=== PATIENT | male | born 1970 | race Caucasian/White ===

== ENCOUNTER 2017-10-09 10:26 | Emergency (ER) | payer OTHER, SELFPAY ==
[2017-10-09 10:58] LABS: #Basophils 0.1 thou/uL (0.0-0.2); #Eosinphils 0.2 thou/uL (0.0-0.7); #Lymphocytes 1.7 thou/uL (1.20-3.40); #Monocytes 0.9 thou/uL (0.11-0.59); #Neutrophils 8.8 thou/uL (1.40-6.50); %Basophils 0.7 % (0.0-1.0); %Eosinophils 1.4 % (0.0-10.0); %Lymphocytes 14.5 % (21.0-51.0); %Monocytes 7.9 % (0.0-10.0); %Neutrophils 75.6 % (42.0-75.0); Hemoglobin 17.1 g/dL (14.0-18.0); Mean Corpuscular HGB CONC 36.1 g/dL (32.0-36.0); Mean Corpuscular Hemoglobin 32.8 pg (27.0-31.0); Mean Corpuscular Volume 90.9 fL (78.0-98.0); Mean Platelet Volume 6.2 fL (7.4-10.4); Platelet Count 333 thou/uL (130-400); RBC Distribution Width 12.5 % (11.5-14.5); Red Blood Cell (RBC) Count 5.19 mill/uL (4.70-6.10); White Blood Cell (WBC) Count 11.7 thou/uL (4.8-10.8)
[2017-10-09 11:19] LABS: ALT (SGPT) 26 U/L (8-55); AST (SGOT) 22 U/L (5-34); Albumin 4.3 g/dL (3.5-5.0); Alkaline Phosphatase 64 U/L (40-150); Anion Gap 15 mmol/L (10-20); BUN (Urea Nitrogen) 15 mg/dL (8.9-20.6); Bilirubin, Total 0.2 mg/dL (0.2-1.2); Calc. Creatinine Clearance 0 mL/min (70-130); Calcium 9.9 mg/dL (7.8-10.44); Carbon Dioxide 22 mmol/L (22-29); Chloride 104 mmol/L (98-107); Estimated GFR-MDRD Greater than 90; Globulin 3.9 g/dL (2.4-3.5); Glucose 131 mg/dL (70-105); Potassium 4.1 mmol/L (3.5-5.1); Protein, Total 8.2 g/dL (6.0-8.3); Sodium 137 mmol/L (136-145)
--- NOTE | 2017-10-09 11:47 | CT ---
CT BRAIN: Date: 10-09-17 Provided Clinical History: Seizure. FINDINGS: Comparison 12-12-16. The ventricular system appears normal in size and morphology. There is no evidence for intracranial h emorrhage or mass effect. The extracranial soft tissues and osseous structures demonstrate no acute a bnormality. IMPRESSION: No evidence for intracranial hemorrhage or mass effect. POS: [facility]
--- NOTE | 2017-10-09 11:52 | RAD ---
UPRIGHT PORTABLE CHEST ONE VIEW: History: 46-year-old male with history of cough and seizures. Comparison: 12-12-16 FINDINGS: Heart size is normal. The lungs are clear. No pneumonia, edema, or pleural effusion. IMPRESSION: No acute intrathoracic disease, stable from prior study. POS: [facility]
[2017-10-09] MEDS ORDERED: diphenhydrAMINE 50 MG/ML VIAL ONE (12:28)
[2017-10-09] MEDS ORDERED: Ketorolac Tromethamine 30 MG/ML VIAL ONE (12:28)
[2017-10-09] MEDS ORDERED: Metoclopramide HCl 10 MG/2 ML VIAL ONE (12:28)
[2017-10-09] MEDS ORDERED: levETIRAcetam 500 MG TAB PO SCH (12:30)
[2017-10-09] MEDS ORDERED: Ondansetron HCl/PF 4 MG/2 ML Vial ONE (12:43)
== END 2017-10-09 14:43 | disposition home or self-care (01) ==
LOC: ERS 10:26
DX: G40.909 Epilepsy, unspecified, not intractable, without status epilepticus (principal); E03.9 Hypothyroidism, unspecified; I10 Essential (primary) hypertension; F17.210 Nicotine dependence, cigarettes, uncomplicated; Z79.899 Other long term (current) drug therapy; Z79.84 Long term (current) use of oral hypoglycemic drugs
CPT/HCPCS: 36415; 70450; 71045; 80053; 84146; 85025; 93005; 96361; 96365; 96366; 96375; 99406; J1200; J1885; J2405; J2765

== ENCOUNTER 2018-04-11 17:48 | Inpatient (IN) | payer SELFPAY ==
[~2018-04-11 17:48] MED LIST: ISOVUE-370 76%-LOCM 1 ML ONE
[2018-04-11] MEDS ORDERED: Propofol 1,000 MG/100 ML VIAL IV ONE (17:55)
[2018-04-11] MEDS ORDERED: Piperacillin/Tazobactam 4.5 GM VIAL ONE (18:04)
[2018-04-11] MEDS ORDERED: Acetaminophen 650 MG Suppository ONE (18:07)
[2018-04-11 18:11] LABS: Base Excess-Venous -7.2 mmol/L (0 (+/- 2.5)); Bicarbonate (HCO3v) 21.2 mmol/L (22.0-29.0); CO2 Tension (PvCO2) 51.5 mmHg (41.0-51.0); Calcium, Ionized 1.11 mmol/L (1.12-1.32); Lactate 4.56 mmol/L (0.50-2.20); O2 Tension (PvO2) 60.5 mmHg (35.0-45.0); Potassium 3.9 mmol/L (3.4-4.7); T. Carbon Dioxide 22.7 mmol/L (1.0-85.0); pH (Venous) 7.222 (7.35-7.45); vO2 Saturation-calc 85.2 % (94-98)
[2018-04-11 18:17] LABS: Actual Bicarbonate (HCO3a) 20.7 mEq/L (22-28); Base Excess (BEa) -8.8 mEq/L (-2.0 to +3.0); CO2 Tension 58.2 mmHg (35.0-45.0); Carboxyhemoglobin (COHb) 0.1 gm% (0.0-3.0); Hemoglobin (Hb) 17.7 g/dL (14.0-18.0); Potassium - ABG Lab 3.98 mmol/L (3.70-5.30)
[2018-04-11 18:18] LABS: Analyzer IN Cardio ER; O2 Tension (PaO2) 57.8 mmHg (80.0-100.0); Puncture Site LB; pH, Arterial 7.17 (7.35-7.45)
[2018-04-11] MEDS ORDERED: Succinylcholine Chloride 20 MG/ML 10 ml SYRINGE FS ONE (18:18)
[2018-04-11 19:08] LABS: Bilirubin Negative (Negative); Blood, Urine Large (Negative); Clarity TURBID (Clear); Glucose, Urine (Dipstick) 100 mg/dL (Negative); Leukocyte Negative (Negative); Nitrite Negative (Negative); Protein, Urine (Dipstick) 100 mg/dL (Neg-Trace); Specific Gravity, Urine 1.012 (1.002-1.036); Urobilinogen 0.2 mg/dL (0.2-1.0); pH, Urine 5.5 (5.0-9.0)
[2018-04-11 19:10] LABS: Bacteria/HPF None Seen HPF (None Seen)
[2018-04-11 19:25] LABS: Hyaline Casts/LPF 0-3 HYALINE CAST LPF (0-3 Hyaline)
[2018-04-11 19:28] LABS: WBC/HPF 0-3 HPF (0-3)
[2018-04-11 19:39] LABS: CKMB 36.8 ng/mL (0-6.6)
--- NOTE | 2018-04-11 20:20 | RAD ---
RADIOGRAPH CHEST 1 VIEW: Date: 04/11/18 Time: 4:53 p.m. HISTORY: 47-year-old male with sepsis and diabetic ketoacidosis. Status post intubation. COMPARISON: 04/11/18, 4:27 p.m. FINDINGS: Endotracheal tube distal tip remains 4.5 cm superior to the espinoza. NG tube remains, but is poorly vi sualized. Partial silhouetting of the bilateral hemidiaphragms, left worse than right. This is a sup ine image, which would be insensitive for pneumothorax detection. No ronnie pulmonary edema. No major interval change. IMPRESSION: 1. No interval change since approximately 25 minutes ago. 2. Endotracheal tube and nasogastric tube remain. 3. Densities at the bilateral lung bases which could represent pleural effusions, pulmonary air space densities, or combination of both. TYLER [] POS: [facility]
--- NOTE | 2018-04-11 20:24 | RAD ---
RADIOGRAPH CHEST 1 VIEW: Date: 04/11/18 Time: 5:31 p.m. HISTORY: Status post intubation in 47-year-old male. COMPARISON: 04/11/18, 4:53 p.m. FINDINGS: Again, this is a supine image, which would be insensitive for pneumothorax detection. Endotracheal tu be remains in the mid-upper thoracic trachea, currently approximately 5 cm superior to the espinoza. Ne w transversely oriented band of subsegmental atelectasis at the right mid lung zone. Previously seen mild density at the right lung base partially silhouetting the right hemidiaphragm is no longer visua lized. There continues to be dense opacifications in retrocardiac portion of the left lower lobe. No cardiomegaly. NG tube difficult to visualize because of body habitus. IMPRESSION: 1. Endotracheal tube remains. 2. New subsegmental atelectasis at right mid lung zone. 3. Dense opacification of retrocardiac portion of left lower lobe which could be atelectasis, al though pneumonia would be difficult to exclude. TYLER [] POS: [facility]
--- NOTE | 2018-04-11 20:44 | CT ---
CTA THORAX WITH CONTRAST: 04/11/18 at 7:03 p.m. (Computed Tomographic Angiography, chest(noncoronary) with contrast material, and image postprocessin g) (PE protocol) HISTORY: 47-year-old male with dyspnea. TECHNIQUE: IV injection of iodinated contrast: 70 mL of Isovue 370. Scan acquisition timing attempted to coincide with iodinated contrast bolus reaching maximal density in pulmonary arteries. 3D MIP reconstructions. FINDINGS: Endotracheal tube with distal tip at mid thoracic trachea. NG tube through esophagus, distal tip at g astric cardia. Consolidations involving almost the entire bilateral lower lobes, also involving the p erihilar regions bilaterally. Streak artifact from patient's upper extremities (which were not elevat ed), plus breathing motion artifact, makes it difficult to evaluation the peripheral bilateral pulmon mekhi artery branches. No pulmonary thromboembolism is identified. No pleural effusion or pneumothorax identified. Almost no IV contrast material in the thoracic aorta. No thoracic aortic aneurysm. Heavy atherosclerotic calcification of LAD. IMPRESSION: 1. Bilateral lower lobe consolidations, which could represent severe bilateral lower lobe atelec tasis. Pneumothorax is an alternative possibility. 2. No central pulmonary thromboembolism. 3. Endotracheal tube in satisfactory position. 4. Nasogastric tube distal tip at gastric cardia. 5. Coronary atherosclerosis. ledy[] POS: [facility]
[2018-04-11] MEDS ORDERED: Sodium Chloride 0.9% 1,000 ML IV SCH (20:55)
[2018-04-11] MEDS ORDERED: Ventilator Sedation Protocol 1 EACH FS ONE (21:18)
[2018-04-11] MEDS ORDERED: Dextrose 5% in Water 1,000 ML IV PRN (21:18)
[2018-04-11] MEDS ORDERED: Ventilator Sedation Protocol 1 EACH FS SCH (21:18)
[2018-04-11] MEDS ORDERED: Dextrose 50% Abboject 50 ML SYRINGE SLOW IVP PRN (21:18)
[2018-04-11] MEDS ORDERED: CCU Electrolyte Replacement 1 EACH FS ONE ×2 (21:18)
[2018-04-11] MEDS ORDERED: CCU ELECTROLYTE REPLACEMENT PROTOCOL FS PRN (21:25)
[2018-04-11] MEDS ORDERED: Potassium Phosphate 12 MMOL in Sodium Chloride 0.9% 250 ML 250 ML IV PRN (21:25)
[2018-04-11] MEDS ORDERED: Magnesium 2 GM/NS 0.9% 100 ML 2 GM in Premix Bag 1 BAG IVPB PRN (21:25)
[2018-04-11] MEDS ORDERED: Potassium Chloride 20 MEQ TAB PO PRN (21:25)
[2018-04-11] MEDS ORDERED: Potassium Phosphate 15 MMOL in Sodium Chloride 0.9% 250 ML 250 ML IV PRN (21:25)
[2018-04-11] MEDS ORDERED: Magnesium Oxide 400 MG TAB PO PRN ×2 (21:25)
[2018-04-11] MEDS ORDERED: Potassium Phosphate 9 MMOL in Sodium Chloride 0.9% 100 ML IVPB PRN (21:25)
[2018-04-11] MEDS ORDERED: Potassium Chloride 40 MEQ in Premix Bag 1 BAG IVPB PRN (21:25)
[2018-04-11] MEDS ORDERED: Potassium Chloride 40 MEQ in Sodium Chloride 0.9% 250 ML 250 ML IVPB PRN (21:25)
[2018-04-11] MEDS ORDERED: Fentanyl BOLUS 250 ML IVPB PRN (21:26)
[2018-04-11] MEDS ORDERED: DISCONTINUE PREVIOUS NARCOTIC PAIN MEDICATIONS AND BENZODIAZEPINES FS SCH (21:26)
[2018-04-11] MEDS ORDERED: Morphine 2 MG/ML SYRINGE SLOW IVP PRN (21:26)
[2018-04-11] MEDS ORDERED: Propofol BOLUS 1,000 MG/100 ML VIAL IV PRN (21:26)
[2018-04-11] MEDS ORDERED: Famotidine/PF 20 mg/2ml Vial SLOW IVP SCH (21:30)
[2018-04-11] MEDS: Sodium Bicarbonate 70 MEQ in Sodium Chloride 0.45% 1,000 ML IV SCH (21:52)
[2018-04-11] MEDS: Vecuronium 10 MG VIAL IVP PRN (22:00)
[2018-04-11] MEDS: Meropenem 2 GM in Sodium Chloride 0.9% 100 ML IVPB SCH (22:03)
[2018-04-11] MEDS: Propofol 1,000 MG/100 ML VIAL IV PRN (22:08)
[2018-04-11] MEDS: fentaNYL Citrate/PF 2,000 MCG in Sodium Chloride 0.9% 60 ML IV SCH (22:11)
[2018-04-11 22:24] LABS: Lactic Acid 4.2 mmol/L (0.5-2.2)
[2018-04-11 22:44] LABS: CKMB 45.1 ng/mL (0-6.6)
[2018-04-11] MEDS ORDERED: Heparin 10,000 UNITS/ 10 ML VIAL SLOW IVP SCH (23:30)
[2018-04-11] MEDS ORDERED: Heparin 25,000 units/D5W 500 ML IVPB SCH (23:30)
[2018-04-11 23:49] LABS: Hemoglobin 13.3 g/dL (14.0-18.0); Platelet Count 332 thou/uL (130-400)
--- NOTE | 2018-04-12 01:51 | CON ---
DATE OF CONSULTATION: 04/11/2018 REASON FOR CONSULTATION: Critical care management following encompassed 45 minutes of critical care time. HISTORY OF PRESENT ILLNESS: The patient is a 47-year-old male who was received and transferred to this ER from [facility], where he presented earlier with apparently a prolonged seizure episode. The patient was apparently combative after the seizure. He was intubated by the ER staff there, but apparently was a difficult intubation that took a long time. The ER staff here tells me he was intubated initially with 6.5 endotracheal tube over there and was switched to a 7.5 endotracheal tube when he arrived here. He has been hypoxic since arrival. PAST MEDICAL HISTORY: 1. Diabetes mellitus. 2. Hypothyroidism. 3. Hypertension. 4. Seizure disorder. 5. Lupus. PAST SURGICAL HISTORY: Not available, but the patient, it appears that he has had a tracheostomy and some type of abdominal surgery in the past. ALLERGIES: PER THE TRANSFER NOTE, HE WAS ALLERGIC TO CODEINE, PENICILLIN, SULFA AND RISPERIDONE, BUT THAT IS NOT CONFIRMED. OUTPATIENT MEDICATIONS: Not known. FAMILY MEDICAL HISTORY: Unknown. SOCIAL HISTORY: Not able to confirm at this time. REVIEW OF SYSTEMS: Cannot be obtained as the patient is currently on mechanical ventilation. PHYSICAL EXAMINATION: VITAL SIGNS: Pulse 137, blood pressure 117/97, O2 saturation 86% on 100% oxygen, temperature 101.8, and tidal CO2 was 40. This patient is a large obese male, who is currently intubated on mechanical ventilation. HEENT: Pupils are 2 mm and nonreactive. Sclerae anicteric. Oropharynx, endotracheal tube in place. NECK: Without palpable adenopathy or JVD. There is a midline surgical scar, which may be an old tracheostomy. CARDIOVASCULAR: S1 and S2 is tachycardic without audible murmur. LUNGS: He has crackles in both bases. No wheezes. ABDOMEN: Soft, obese, nontender. His midline surgical scar is well healed. EXTREMITIES: No clubbing, cyanosis, or edema. He had Coban wrapped around both arms, which I told the nursing staff to remove. LABORATORY DATA: White blood cell count 28.4, hematocrit 55.1, and platelet count 398 with 75% neutrophils, 7% bands. INR is 1.1. PTT 36. PH 7.19, pCO2 of 54, PO2 of 58, on bilevel rate 24, high pressure 30, low pressure 15, FiO2 of 100%. Sodium 141, potassium 4.1, chloride 108, CO2 of 8, BUN 12, creatinine 1.6, glucose 309. The beta hydroxybutyrate level was negative. Ketones were negative in the urine. Lactate level was 21.8. BNP less than 10. CPK 332, troponin 5.35, albumin 4.4. His tox screen was remarkable for opiates, cannabinoids. Alcohol level was negative. CT of the chest shows bilateral lower lobe infiltrates along with small effusions. He has some pulmonary edema present. I do not see any overt pulmonary emboli present. ASSESSMENT: 1. Prolonged seizure. 2. Severe lactic acidosis, which I think is probably secondary to seizure. 3. Aspiration pneumonitis from prolonged difficult intubation. 4. Hyperglycemia, but not in diabetic ketoacidosis. 5. Elevated troponin. 6. Recent seizure. 7. Febrile illness likely secondary to seizure, but possibly from aspiration. RECOMMENDATIONS: 1. I have adjusted the patient's mechanical ventilation settings. He needs to be empirically treated with IV antibiotics, steroids, nebulization treatments. He needs to be hydrated probably with some type of bicarbonate drip given the degree of his acidosis. 2. DVT prophylaxis with Lovenox and SCDs. GI prophylaxis with Pepcid. 3. Sliding scale insulin coverage. Job ID: [id number]
[2018-04-12] MEDS: Vecuronium 10 MG VIAL IVP PRN ×8 (02:14→23:11)
--- NOTE | 2018-04-12 03:55 | HP ---
PRIMARY CARE PHYSICIAN: Malorie Coffey MD CHIEF COMPLAINT: Seizure, intubated at outside hospital. HISTORY OF PRESENT ILLNESS: The patient is intubated and sedated on the vent, unable to give history. All history taken from the ER doctor and the chart. This is a 47-year-old with a known seizure disorder, who presented to the [facility] via EMS after a seizure. Per their notes, the patient had a seizure at home and hit his head in the bathroom. He was confused after the seizure and was not recovering normally, so EMS was called. On arrival, the patient was tachypneic, tachycardic, and saturating in the low 80s on nasal cannula. He was given oxygen and immediately brought to CT to rule out hemorrhage from his fall. This evaluation was limited due to the patient being agitated and not following commands. The patient continued to pull out IVs and flare around, was withdrawing from pain and mumbling. His oxygen saturations remained low and so eventually he was intubated. It was a difficult intubation. He had multiple doses of succinylcholine and then later rocuronium and was given Versed and later propofol. After extensive attempts, the patient was successfully intubated with a small ET tube 6.5. He was not oxygenating well with this, but they were able to keep his sats up in the 80s with it. The patient was eventually transferred to our emergency room, here his ET was traded out. Dr. Leblanc was consulted and came to the ER to evaluate and then manage the vent. I was able to get him eventually his O2 sats to remain low and stabilized around 85. The patient has required further sedation in the emergency room here as he started biting the tube and fighting the vent. PAST MEDICAL HISTORY: 1. Seizure disorder. 2. Diabetes. 3. Hypothyroidism. 4. Hypertension. 5. Possible lupus. PAST SURGICAL HISTORY: 1. Surgery for peritonitis. 2. Trach placed at one time when there was trouble with the intubation. SOCIAL HISTORY: Per the chart, the patient smokes cigarettes. No alcohol or illicit drug use mentioned. FAMILY HISTORY: Unknown. ALLERGIES: PER THE CHART, 1. CODEINE. 2. PENICILLIN. 3. SULFA. 4. ZIPRASIDONE. UNABLE TO BE CONFIRMED AT THIS TIME. REVIEW OF SYSTEMS: Unable to obtain secondary to patient's mental status. PHYSICAL EXAMINATION: VITAL SIGNS: Blood pressure 106/87, pulse 132, respirations 24 on the vent. Temperature spiked to 102.2 in the emergency room, now down to 101.8. O2 saturation currently 88% on the ventilator. GENERAL: This is a well-developed obese white male, who is sedated on the ventilator. HEENT: Pupils are about 2 mm bilaterally and fixed after sedation, they were equal and round. Oropharynx with ET tube in place and OG tube as well. HEART: Regular rate and rhythm. No murmurs, rubs, or gallops. LUNGS: Bilateral coarse breath sounds in the bases, though with decent air movement throughout the rest. ABDOMEN: Obese, soft. No palpable masses. Positive bowel sounds. EXTREMITIES: No clubbing, cyanosis, or edema. SKIN: No rashes or other lesions noted. NEUROLOGIC: The patient is sedated. He, however, was chewing on the vent and fighting the vent just a couple minutes ago and nurses just had to re-dose his sedation. He has been moving all extremities equally. No focal findings. LABORATORY DATA: White blood cell count 28,000 with 55% neutrophils, 7 bands, hemoglobin 17.6, hematocrit 55.1, platelet count 398. Coagulation profile normal. Most recent blood gas showed a pH of 7.17, pCO2 of 58, and PO2 of 57. Complete metabolic panel is notable for a creatinine of 1.57, glucose of 166, creatine kinase was 332. CK-MB was elevated at 36.8. Troponin is elevated at 5.3. Lactic acid was actually originally 21 and then down to 4.56 with repeat check after fluids. Urinalysis had protein and glucose in it, but no significant evidence of infection. Toxicology screen was positive for opiates and cannabinoids. Beta hydroxybutyrate was negative. CT of the brain was poor quality due to movement artifact, but no significant abnormalities noted. CTA of the chest and thorax was notable for no evidence of PE or aneurysm or dissection. The patient did have bilateral significant infiltrates in both lungs. He also had a significant calcification of his LAD. Chest x-ray; I did review the most recent chest x-ray done in the emergency room along with the radiologist's report. This shows ET tube in the mid upper thoracic trachea 5 cm above the espinoza. Some subsegmental atelectasis in the right mid lung. Previously seen mild density in the right lung base, partially silhouetted slowly in the right hemidiaphragm no longer visualized and continued dense opacifications in the retrocardiac position in the left lower lobe. No cardiomegaly. ASSESSMENT: 1. Seizure disorder with prolonged seizure after head trauma with prolonged abnormal postictal state. The patient most likely has significant lactic acidosis from his seizure. This is also possibly the source of his elevated troponin. We will continue to follow the lactic acid and troponins and CPKs in the hospital. 2. Acute hypoxic respiratory failure. He appears to have been hypoxic even before the prolonged difficult intubation. This is possibly due to sequela from his seizure and agitation. However, he may have aspirated at home previously. He also very likely aspirated during his intubation attempts. Dr. Leblanc has been consulted and is managing the vent and starting him on appropriate antibiotics. The patient is being admitted to the ICU. 3. Sepsis. Elevated WBC, fever spike in our ER. Most likely aspirated during seizure or intubation attempts. Starting abx and giving fluids. 4. Hyperglycemia. Glucose was originally 300, but now down to 166. He has no ketones. He does not appear to have any sort of DKA picture going on. The acidosis is most likely just from his post seizure. We will check blood sugars regularly in the ICU and give insulin if needed. 5. Acute renal failure, likely secondary to seizure and acidosis. We will monitor closely with fluid resuscitation and consult Nephrology if this does not correct. 6. Elevated troponin. Troponin was initially 0.1 and then second check it jumped up to 5.3. EKG done in the emergency room did show some ST-segment depressions. He does have severe calcification of his LAD, likely significant coronary artery disease. I will talk to Dr. Ewing and see if we need to do anything further besides trend the troponins at this point. 7. Gastrointestinal prophylaxis. We will put the patient on Pepcid IV. 8. Deep venous thrombosis prophylaxis. We will put the patient on Lovenox. 9. Code status. No family available to discuss code status at this time, so he remains a full code. Job ID: [id number] MTDD
[2018-04-12] MEDS: HumaLOG 300 UNITS/3 ML VIAL SC PRN ×3 (04:33→18:00)
[2018-04-12] MEDS: Sodium Bicarbonate 70 MEQ in Sodium Chloride 0.45% 1,000 ML IV SCH ×2 (05:19→18:00)
[2018-04-12] MEDS: Meropenem 2 GM in Sodium Chloride 0.9% 100 ML IVPB SCH ×3 (05:22→22:05)
[2018-04-12] MEDS: Propofol 1,000 MG/100 ML VIAL IV PRN ×3 (05:32→21:22)
[2018-04-12 06:14] LABS: Lactic Acid 4.7 mmol/L (0.5-2.2)
[2018-04-12 06:16] LABS: ALT (SGPT) 153 U/L (8-55); AST (SGOT) 254 U/L (5-34); Albumin 3.7 g/dL (3.5-5.0); Alkaline Phosphatase 73 U/L (40-150); Anion Gap 20 mmol/L (10-20); BUN (Urea Nitrogen) 16 mg/dL (8.9-20.6); Bilirubin, Total 0.3 mg/dL (0.2-1.2); CK (CPK) 1780 U/L (30-200); Calc. Creatinine Clearance 104 mL/min (70-130); Carbon Dioxide 17 mmol/L (22-29); Chloride 107 mmol/L (98-107); Estimated GFR-MDRD 46; Globulin 3.4 g/dL (2.4-3.5); Glucose 188 mg/dL (70-105); Potassium 4.3 mmol/L (3.5-5.1); Protein, Total 7.1 g/dL (6.0-8.3); Sodium 140 mmol/L (136-145)
[2018-04-12 06:22] LABS: Band 2 % (5-11); Hemoglobin 15.7 g/dL (14.0-18.0); Lymphocytes 5 % (21-51); MDiff Complete? YES; Mean Corpuscular Hemoglobin 31.5 pg (27.0-31.0); Mean Corpuscular Volume 90.1 fL (78.0-98.0); Monocytes 4 % (0-10); Neutrophil 87 % (42-75); Platelet Count 293 thou/uL (130-400); Platelet Morphology Comment Appears Adequate; RBC Distribution Width 12.8 % (11.5-14.5); RBC Morphology Normal; Reactive Lymphocytes 2 % (0-10); Red Blood Cell (RBC) Count 4.99 mill/uL (4.70-6.10); White Blood Cell (WBC) Count 17.8 thou/uL (4.8-10.8)
[2018-04-12] MEDS: Lorazepam 2 MG/ML VIAL SLOW IVP PRN ×7 (08:05→23:05)
--- NOTE | 2018-04-12 08:21 | RAD ---
PORTABLE CHEST: Comparison: 04-11-18 History: Respiratory distress. FINDINGS: Endotracheal and NG tubes are in satisfactory position. Parenchymal changes in the mid right lung fie ld have resolved. There is now development of some atelectasis or developing infiltrate in the left b ase with obscuration of the left hemidiaphragm. IMPRESSION: Developing parenchymal change in the left base consistent with atelectasis, possibly related to mucou s plugging versus infiltrate. Right sided lung changes have resolved. POS: [facility]
[2018-04-12 08:27] LABS: Calcium, Ionized 1.02 mmol/L (1.12-1.30); Hemoglobin (Hb) 15.8 g/dL (14.0-18.0); O2 Tension (PaO2) 224.9 mmHg (80.0-100.0); Potassium - ABG Lab 4.15 mmol/L (3.70-5.30); pH, Arterial 7.38 (7.35-7.45)
[2018-04-12 08:43] LABS: Puncture Site L.R.
[2018-04-12] MEDS ORDERED: Enoxaparin Sodium 40 MG/0.4 ML SYRINGE SC SCH (09:00)
[2018-04-12] MEDS ORDERED: Famotidine/PF 20 mg/2ml Vial SLOW IVP SCH (09:00)
--- NOTE | 2018-04-12 09:30 | PRG ---
DATE OF SERVICE: 04/12/2018 TIME SPENT: 35 minutes of critical time. SUBJECTIVE: The patient remains intubated on mechanical ventilation. He will wake up. He moves his extremities. Does not follow any commands specifically. OBJECTIVE: VITAL SIGNS: On exam, his temperature is 98.9 with no fever overnight, pulse 88, blood pressure 96/72. Intake 2414, output 1365. HEENT: Opens his eyes. NECK: No JVD. LUNGS: Fairly clear anteriorly. CARDIAC: S1, S2. Regular. ABDOMEN: Soft, obese, nontender. EXTREMITIES: No edema. LABORATORY DATA: 1. Sodium 140, potassium 4.3, chloride 107, CO2 of 17, BUN 16, creatinine 1.6, glucose 188, lactate 4.7, AST 254, ALT 153. CPK 1780. PH of 7.37, pCO2 of 33, pO2 of 224, that was on bilevel rate 20, high PEEP 30, low PEEP 15, FiO2 of 90%. White blood cell count 17.1, hematocrit 45, platelet count 293. ASSESSMENT: 1. Status epilepticus, which is resolved. 2. Acute respiratory failure, requiring mechanical ventilation. 3. Aspiration due to prolonged intubation. 4. Hyperglycemia at the time of admission, but not in DKA. 5. Elevated troponin. 6. Lactic acidosis from seizure. PLAN: 1. Continue antibiotics. 2. Adjust mechanical ventilation settings. Push endotracheal tube down 2 cm, because it was high on today's x-ray. 3. Start anticonvulsants. 4. Continue bicarbonate drip for one more day given elevated CPK. Job ID: [id number]
[2018-04-12] MEDS: levETIRAcetam In NaCl (Iso-Os) 1,000 MG in Premix Bag 1 BAG IVPB SCH ×2 (09:52→20:37)
[2018-04-12 10:14] LABS: Hemoglobin 15.1 g/dL (14.0-18.0)
--- NOTE | 2018-04-12 10:19 | CON ---
DATE OF CONSULTATION: REASON FOR CONSULTATION: Elevated troponin. HISTORY OF PRESENT ILLNESS: Mr. Reyes is an unfortunate 47-year-old gentleman, who recently had a seizure. He had a difficult intubation while in outlying facility. He was felt to be hypoxic upon arrival. He is currently intubated, sedated with no current family present. The history is obtained from the chart. He has no previous history of underlying coronary artery disease. PAST MEDICAL HISTORY: Hypertension, diabetes mellitus, hypothyroidism, previous seizure disorder, and lupus. ALLERGIES: CODEINE, PENICILLIN. MEDICATIONS: Unknown. SURGICAL HISTORY: Unknown. REVIEW OF SYSTEMS: Unobtainable. PHYSICAL EXAMINATION: VITAL SIGNS: Blood pressure 96/72, pulse 88, temperature 98.9. GENERAL: He is currently intubated and sedated. He does appear disheveled. NEUROLOGIC: The patient is alert and oriented x3 with no focal neurologic deficits. HEENT: Sclerae without icterus. Mouth has moist mucous membranes with normal pallor. NECK: No JVD. Carotid upstroke brisk. No bruits bilaterally. LUNGS: Clear to auscultation with unlabored respirations. BACK: No scoliosis or kyphosis. CARDIAC: Regular rate and rhythm with normal S1 and S2. No S3 or S4 noted. No significant rubs, murmurs, thrills, or gallops noted throughout the precordium. PMI is not displaced. There is no parasternal heave. ABDOMEN: Soft, nontender, nondistended. No peritoneal signs present. No hepatosplenomegaly. No abnormal striae. EXTREMITIES: 2+ femoral and 2+ dorsalis pedis pulses. No cyanosis, clubbing, or edema. SKIN: No gross abnormalities. LABORATORY DATA: Pertinent labs: White blood cell count 17.8, hemoglobin 15.7. Creatinine 1.62. Lactic acid level 4.7. AST and ALT of 254/153. CK of 1780, CK-MB of 45, peak troponin 9.8. EKG shows a normal sinus rhythm with ST-T wave changes suggesting subendocardial ischemia. IMPRESSION: 1. Elevated troponin. 2. Respiratory failure. 3. Seizure. 4. CV risk factors for coronary artery disease. RECOMMENDATIONS: At this point, we will continue supportive care. I am unsure whether his troponin and CK-MB were due to recent seizure or demand ischemia. He does have a previous history of seizure. Differential diagnosis does include malignant dysrhythmia causing a seizure-like activity. Recommend echo with doppler to assess LVEF. Would recommend Lovenox as prescribed. Would also add a beta-vicente therapy and aspirin. Otherwise, continue to follow with you. Job ID: [id number]
--- NOTE | 2018-04-12 16:20 | PDOC.PN ---
- Subjective Encounter Start Date: 04/12/18 Encounter Start Time: 10:30 Mr. Reyes was seen today in follow-up of Seizure and NSTEMI. He is intubated and sedated. - Objective MAR Reviewed: Yes Vital Signs & Weight: Vital Signs (12 hours) Temp Pulse Resp BP Pulse Ox 04/12/18 15:27 93 104/80 04/12/18 15:26 91 20 96 04/12/18 14:00 20 04/12/18 12:00 98.8 F 20 04/12/18 11:38 90 99/68 04/12/18 11:37 93 20 96 04/12/18 10:00 20 04/12/18 08:00 98.9 F 20 95 04/12/18 07:53 88 98/69 04/12/18 07:51 89 24 H 97 04/12/18 06:00 24 H Weight Admit Weight 288 lb 2.307 oz Weight 288 lb 2.307 oz Most Recent Monitor Data Heart Rate from ECG 94 NIBP 104/80 NIBP BP-Mean 88 Respiration from ECG 20 SpO2 97 I&O: 04/11/18 04/12/18 04/13/18 06:59 06:59 06:59 Intake Total 2414 100 Output Total 1365 480 Balance 1049 -380 Result Diagrams: 04/12/18 10:04 04/12/18 05:29 Additional Labs: Accuchecks 04/12/18 04/12/18 04/12/18 08:45 04:32 00:26 POC Glucose 207 H 196 H 142 H 04/11/18 04/11/18 22:28 18:05 POC Glucose 150 H 196 H Phys Exam - Physical Examination HEENT: PERRLA Respiratory: no wheezing, no rales, no rhonchi, clear to auscultation bilateral Cardiovascular: RRR, no significant murmur, no rub Gastrointestinal: soft, non-tender, positive bowel sounds Musculoskeletal: no edema Dx/Plan (1) Status epilepticus Code(s): G40.901 - EPILEPSY, UNSP, NOT INTRACTABLE, WITH STATUS EPILEPTICUS Status: Acute (2) NSTEMI (non-ST elevated myocardial infarction) Code(s): I21.4 - NON-ST ELEVATION (NSTEMI) MYOCARDIAL INFARCTION Status: Acute (3) Acute respiratory failure Code(s): J96.00 - ACUTE RESPIRATORY FAILURE, UNSP W HYPOXIA OR HYPERCAPNIA Status: Acute (4) Aspiration pneumonia Code(s): J69.0 - PNEUMONITIS DUE TO INHALATION OF FOOD AND VOMIT Status: Acute (5) Diabetes mellitus type 2, uncontrolled Code(s): E11.65 - TYPE 2 DIABETES MELLITUS WITH HYPERGLYCEMIA Status: Chronic - Plan * Seizure - with status epilepticus- continue Keppra IV * Continue airway support with Ventilator * NSTEMI- Cardiology work-up is in progress- Echo noted, he has a normal EF- possible arrhythmic event * DM- blood glucose is stable on SSI * Aspiration Pneumonia- continue empiric broad spectrum antibiotics..
[2018-04-12] MEDS ORDERED: Sterile Water 0 ML ONE (19:36)
--- NOTE | 2018-04-12 22:10 | OP ---
DATE OF PROCEDURE: 04/12/2018 PROCEDURE PERFORMED: Esophagogastroduodenoscopy. PREOPERATIVE DIAGNOSIS: Gastrointestinal bleeding. POSTOPERATIVE DIAGNOSES: 1. Duodenitis, no active bleeding. 2. Multiple well circumscribed eczematous spots mostly from NG tube with gastritis. 3. Proximal stomach show mucosal edema, erythema, or friability, especially of the fundus. No ulcer seen. Also stomach was completely free of any blood. DESCRIPTION OF PROCEDURE: The patient was already on the ventilator. He was getting IV propofol. A bite block was placed. The patient was turned onto left lateral position. A Pentax video gastroscope under direct vision passed down the oropharynx through the GE junction into the stomach and descending duodenum. The esophageal mucosa appeared normal except for some mild erythema and friability along the distal esophagus. The GE junction, no pathology. The patient's stomach was completely free of any blood. There was some mucosal erythema and edema noted over the proximal stomach. No active bleeding seen. In the gastric body again, no pathology seen. The gastric antrum showed multiple well circumscribed eczematous spots mostly from NG tube. The duodenal bulb shows mucosal edema and erythema. The descending duodenum, no pathology seen. The stomach decompressed the scope. An NG tube was placed into stomach surgically. RECOMMENDATION: 1. Continue IV PPI. 2. We will start NG tube feeding, hopefully tomorrow. Job ID: [id number]
[2018-04-12] MEDS: fentaNYL Citrate/PF 2,000 MCG in Sodium Chloride 0.9% 60 ML IV SCH (22:19)
[2018-04-13] MEDS: Sodium Bicarbonate 70 MEQ in Sodium Chloride 0.45% 1,000 ML IV SCH ×3 (00:53→21:01)
[2018-04-13] MEDS: Propofol 1,000 MG/100 ML VIAL IV PRN ×5 (02:12→17:47)
[2018-04-13] MEDS: Vecuronium 10 MG VIAL IVP PRN ×11 (02:21→23:53)
[2018-04-13] MEDS: Lorazepam 2 MG/ML VIAL SLOW IVP PRN ×3 (03:48→22:46)
[2018-04-13] MEDS: HumaLOG 300 UNITS/3 ML VIAL SC PRN ×2 (04:04→16:23)
[2018-04-13 05:04] LABS: Lactic Acid 3.2 mmol/L (0.5-2.2)
--- NOTE | 2018-04-13 05:05 | CON ---
DATE OF CONSULTATION: 04/12/2018 REASON FOR CONSULTATION: GI bleeding. HISTORY OF PRESENT ILLNESS: Mr. Nito Reyes is a 47-year-old male seen by [facility] with recurrent seizures, fall, etc. He was initially intubated with small endotracheal tube and was exchanged after arrival in [place]. The patient had been seen by Dr. Juaquin Leblanc. He is on the ventilator and is sedated. The patient has NG tube, and the NG tube is draining some coffee-ground material since this morning. The patient had no black tarry stool. He has NG aspirate in the . However, his vital signs are stable. As per the admitting history and physical by Dr. Coffey, the patient was seen in [facility] following episode of seizure and falling at home and hitting his head. He was very restless and agitated at [facility] and he has the tube. Subsequently, he was transferred here for further care. No relevant history overall. MEDICAL ILLNESSES: 1. Obesity. 2. Seizure disorder. 3. Diabetes. 4. Hypothyroidism. 5. Hypertension. 6. Possible lupus. PAST SURGICAL HISTORY: 1. History of surgery for peritonitis, details unclear. 2. Tracheostomy in the past for unknown reason. ALLERGIES: CODEINE, PENICILLIN, SULFA, ZIPRASIDONE. REVIEW OF SYSTEMS: Unknown. FAMILY HISTORY: Unknown. PHYSICAL EXAMINATION: GENERAL: He is an obese, male, is on the ventilator. VITAL SIGNS: His pulse is around 112, blood pressure is 106/87. HEENT: Conjunctivae clear. NECK: Supple. CARDIOVASCULAR: First and second sounds are heard. LUNGS: Clear to auscultation. ABDOMEN: Soft. Abdomen is nondistended. Abdomen is nontender. No organomegaly or masses. Bowel sounds are normal. LABORATORY DATA: CBC; WBC 17,800, hemoglobin 15.7 dropping to 13.3, hematocrit 45, MCV 90.1, platelet count 293,000, polymorphs 87, lymphocytes 2, monocytes 5. Chemistry panel; sodium is 140, potassium 4.3, chloride 107, bicarb 17, BUN is 16, creatinine 1.62, glucose is 138, calcium 8, bilirubin 0.3, AST is 254, ALT 153, alkaline phosphatase 1780, albumin 3.7. Lactic acid is 4.7. He had a chest CAT scan, which showed bilateral lower lobe consolidation. No evidence of PE. IMPRESSION: 1. A 47-year-old male with seizure disorder, who presents to the ER after an episode of seizure at home and has been intubated because of agitation and restlessness. The patient has NG tube, which is draining some coffee-ground material. Blood pretty actually is fairly stable at 13.5. 2. Respiratory failure. 3. Bilateral consolidation on CAT scan. 4. Obesity. 5. Abnormal LFTs. Etiology is unclear. Needs followup and evaluation. RECOMMENDATION: 1. IV PPI. 2. EGD later on today and I will make further recommendations. I will also obtain an abdominal sonogram and follow up LFTs. Job ID: [id number]
[2018-04-13 05:08] LABS: Anion Gap 16 mmol/L (10-20); BUN (Urea Nitrogen) 12 mg/dL (8.9-20.6); CK (CPK) 2080 U/L (30-200); Calc. Creatinine Clearance 155 mL/min (70-130); Calcium 7.8 mg/dL (7.8-10.44); Carbon Dioxide 22 mmol/L (22-29); Chloride 106 mmol/L (98-107); Estimated GFR-MDRD 73; Glucose 158 mg/dL (70-105); Potassium 3.7 mmol/L (3.5-5.1); Sodium 140 mmol/L (136-145)
[2018-04-13 05:09] LABS: Band 8 % (5-11); Lymphocytes 7 % (21-51); MDiff Complete? YES; Mean Corpuscular HGB CONC 35.3 g/dL (32.0-36.0); Mean Corpuscular Hemoglobin 31.8 pg (27.0-31.0); Mean Corpuscular Volume 90.3 fL (78.0-98.0); Mean Platelet Volume 7.1 fL (7.4-10.4); Monocytes 7 % (0-10); Neutrophil 78 % (42-75); Platelet Count 241 thou/uL (130-400); Platelet Morphology Comment Appears Adequate; RBC Distribution Width 12.8 % (11.5-14.5); Red Blood Cell (RBC) Count 4.07 mill/uL (4.70-6.10); White Blood Cell (WBC) Count 15.9 thou/uL (4.8-10.8)
[2018-04-13 05:19] LABS: Troponin I 13.866 ng/mL (< 0.028)
[2018-04-13] MEDS: Meropenem 2 GM in Sodium Chloride 0.9% 100 ML IVPB SCH ×3 (06:15→21:25)
[2018-04-13 07:32] LABS: Actual Bicarbonate (HCO3a) 23.5 mEq/L (22-28); Base Excess (BEa) 1.3 mEq/L (-2.0 to +3.0); Calcium, Ionized 1.05 mmol/L (1.12-1.30); Carboxyhemoglobin (COHb) 0.7 gm% (0.0-3.0); Hemoglobin (Hb) 12.8 g/dL (14.0-18.0); O2 Tension (PaO2) 93.6 mmHg (80.0-100.0); Potassium - ABG Lab 3.62 mmol/L (3.70-5.30); pH, Arterial 7.51 (7.35-7.45)
[2018-04-13 07:33] LABS: Puncture Site RR
[2018-04-13] MEDS ORDERED: Sterile Water 10 ML ONE ×4 (08:43→15:11)
[2018-04-13] MEDS: levETIRAcetam In NaCl (Iso-Os) 1,000 MG in Premix Bag 1 BAG IVPB SCH ×2 (09:02→21:03)
--- NOTE | 2018-04-13 09:24 | RAD ---
AP VIEW CHEST: Date: 04/13/18 HISTORY: Ventilator-dependent patient. FINDINGS: Comparison made to previous exam from 04/12/18. AP view of chest demonstrates nasogastric and endotracheal tubes to be in place. EKG leads seen over the chest. Pulmonary vascular congestion seen. There are areas of air space opacities in the left lung base concerning for pulmonary edema or left l ower lobe pneumonia. Pulmonary vascular congestion also seen. IMPRESSION: Pulmonary vascular congestion and left lung base opacities. Radiographic appearance of the chest is s table. POS: [facility]
--- NOTE | 2018-04-13 09:33 | PRG ---
DATE OF SERVICE: 04/13/2018 PULMONARY/CRITICAL CARE PROGRESS NOTE 35 minutes critical care time. SUBJECTIVE: The patient remains intubated on mechanical ventilation. He becomes very agitated when sedation is off. OBJECTIVE: VITAL SIGNS: His pulse is 93, blood pressure 97/46, O2 saturation 93%, respiratory rate 20. GENERAL: He is currently sedated on propofol and fentanyl, but will wake up and follow some commands. HEENT: Unremarkable. NECK: No JVD. LUNGS: Fairly clear anteriorly. CARDIAC: S1, S2. Regular. ABDOMEN: Soft. EXTREMITIES: No edema. LABORATORY DATA: Sodium 140, potassium 3.7, chloride 106, CO2 of 22, BUN 12, creatinine 1.1, glucose 158, lactate 3.2, CPK 2080, troponin 13.8. PH 7.51, pCO2 of 30, and pO2 of 93. Is on bilevel rate 20, high pressure 25, low pressure 10, FiO2 of 40%. White blood cell count 15.9, hemoglobin 13, hematocrit 36.7, and platelet count 241. His chest x-ray shows improvement, especially in the left basilar infiltrative changes. ASSESSMENT: 1. Acute respiratory failure, requiring mechanical ventilation. 2. Non-Q-wave myocardial infarction. 3. Rhabdomyolysis. 4. Seizure with development of lactic acidosis. 5. Hyperglycemia at the time of admission, that was not due to diabetic ketoacidosis. 6. Acute renal insufficiency, which is better. PLAN: 1. Continue the bicarbonate drip because of the rhabdomyolysis. 2. Continue the anticonvulsants. 3. Waiting for a neurologic opinion in regard to the seizures. 4. Trend lactate level and CPK level. 5. I have placed him on SIMV ventilation. I tried him on spontaneous breathing , but his oxygenation was poor and precludes further weaning at this time. 6. Initiate enteral tube feeds. Job ID: [id number] [facility]
[2018-04-13] MEDS: fentaNYL Citrate/PF 2,000 MCG in Sodium Chloride 0.9% 60 ML IV SCH ×2 (09:45→19:45)
--- NOTE | 2018-04-13 16:18 | PDOC.PN ---
- Subjective Encounter Start Date: 04/13/18 Encounter Start Time: 16:17 Mr. Reyes was seen today in follow-up of seizure and NSTEMI. He is intubated, sedated, and paralyzed. - Objective MAR Reviewed: Yes Vital Signs & Weight: Vital Signs (12 hours) Temp Pulse Resp BP 04/13/18 15:46 97 107/57 L 04/13/18 14:00 20 04/13/18 13:37 96 111/56 L 04/13/18 12:00 99.1 F 04/13/18 10:51 94 101/48 L 04/13/18 10:00 20 04/13/18 08:49 108 H 04/13/18 08:20 80 97/48 L 04/13/18 08:00 98.9 F 04/13/18 06:00 20 Weight Admit Weight 288 lb 2.307 oz Weight 298 lb 1.039 oz Most Recent Monitor Data Heart Rate from ECG 100 NIBP 121/60 NIBP BP-Mean 80 Respiration from ECG 20 SpO2 92 I&O: 04/12/18 04/13/18 04/14/18 06:59 06:59 06:59 Intake Total 2414 4373.9 Output Total 1365 1510 115 Balance 1049 2863.9 -115 Result Diagrams: 04/13/18 04:33 04/13/18 04:33 Additional Labs: Accuchecks 04/13/18 04/13/18 04/13/18 11:37 09:25 04:03 POC Glucose 141 H 132 H 165 H 04/12/18 04/12/18 04/12/18 20:19 17:06 12:15 POC Glucose 158 H 180 H 190 H Phys Exam - Physical Examination + coarse breath sounds bilaterally, and rales at the bases Cardiovascular: RRR, no significant murmur, no rub Gastrointestinal: soft, non-tender, no distention, positive bowel sounds Musculoskeletal: pulses present, edema present Dx/Plan (1) Status epilepticus Code(s): G40.901 - EPILEPSY, UNSP, NOT INTRACTABLE, WITH STATUS EPILEPTICUS Status: Acute (2) NSTEMI (non-ST elevated myocardial infarction) Code(s): I21.4 - NON-ST ELEVATION (NSTEMI) MYOCARDIAL INFARCTION Status: Acute (3) Acute respiratory failure Code(s): J96.00 - ACUTE RESPIRATORY FAILURE, UNSP W HYPOXIA OR HYPERCAPNIA Status: Acute (4) Aspiration pneumonia Code(s): J69.0 - PNEUMONITIS DUE TO INHALATION OF FOOD AND VOMIT Status: Acute (5) Diabetes mellitus type 2, uncontrolled Code(s): E11.65 - TYPE 2 DIABETES MELLITUS WITH HYPERGLYCEMIA Status: Chronic - Plan * Status Epilepticus- controlled- continue Keppra. and Ativan * Aspiration pneumonia- continue Vancomycin and Meropenem * NSTEMI- possibly due to an arrhythmia- await further Cardiology recommendations * respiratory failure - continue treatment for aspiration pneumonia * DM- blood glucose is stable
--- NOTE | 2018-04-13 16:21 | RAD ---
AP CHEST: History: Ventilator dependent patient. Date: 04-13-18 Comparison: 04-13-18 FINDINGS: AP chest demonstrates a nasogastric and endotracheal tubes again in place. A small left sided pleural effusion is seen. Pulmonary vascular congestion is seen. IMPRESSION: Left sided pleural effusion, endotracheal tube and nasogastric tubes in good position. POS: [facility]
--- NOTE | 2018-04-13 16:45 | PRG ---
DATE OF SERVICE: SUBJECTIVE: Mr. Reyes has no changes. Continues to be on the ventilator. His blood pressure appears marginal. He is not on pressors. He is currently on propofol for sedation. OBJECTIVE: VITAL SIGNS: Blood pressure 120/60, pulse 97. Temperature, afebrile. LUNGS: Clear to auscultation. HEART: Regular rate and rhythm. ABDOMEN: Soft, nontender, and nondistended. EXTREMITIES: No edema. GENERAL: He is currently intubated and sedated. PERTINENT LABORATORY DATA: Hemoglobin 13.0, hematocrit 37.6, creatinine 1.09. Troponin 13.8, which is up from 9.8. IMPRESSION: 1. Elevated troponin. 2. Seizure. 3. Respiratory failure. RECOMMENDATIONS: At this point in time, I recommend continued supportive care. We would recommend echo Doppler to assess LVEF and assess for wall motion abnormalities. The EKG does not suggest acute changes. Unknown whether his elevated CK-MB and troponin are due to demand ischemia. may have been a primary dysrhythmia, although the patient does have a previous history of seizure disorder, and is the most likely culprit. Okay to follow with you. Job ID: [id number]
[2018-04-13 17:43] LABS: Vancomycin, Trough 18.2 ug/mL
--- NOTE | 2018-04-13 23:03 | CON ---
DATE OF CONSULTATION: 04/13/2018 TYPE OF CONSULTATION: Neurologic Consultation. CONSULTING PHYSICIAN: Hospitalist Services. IMPRESSION: 1. Seizure disorder. 2. Diabetes. 3. Hypertension. 4. Aspiration pneumonia. PLAN: 1. Continue Keppra 1000 mg twice a day. 2. Extubate when able. HISTORY OF PRESENT ILLNESS: Mr. Reyes is a 47-year-old male with a known history of seizures. He apparently developed recurrent seizures and was admitted. He was sedated and placed on the ventilator, subsequently diagnosed with aspiration pneumonia. He has run some low-grade fevers. No further seizure activity has been witnessed since his admission. PAST MEDICAL HISTORY: Hypertension, diabetes, hypothyroidism, seizure disorder. FAMILY HISTORY: Not obtainable. SOCIAL HISTORY: Unknown. MEDICATIONS: Medication list was reviewed. REVIEW OF SYSTEMS: Not possible at this point with him being intubated. PHYSICAL EXAMINATION: GENERAL: He is a white middle-aged man, ambulatory support. VITAL SIGNS: Blood pressure 116/53, pulse 102, respirations 20, saturations 93%. HEENT: Pupils are equal and reactive. Conjunctivae clear. He is orally intubated. NECK: No lymphadenopathy. EXTREMITIES: No cyanosis or edema. NEUROLOGIC: He will partially awake to verbal stimulation. I can get him to follow some very simple commands such as moving his hands and feet. Sensation was grossly symmetric. Plantar responses were downgoing. No abnormal movements were seen. Drug screen was positive for opiates and THC. SUMMARY: Middle-aged male with a seizure disorder. He seems to be stable at this point. I would continue his current treatment plan and feel free to call if he has any further problems. Job ID: [id number]
[2018-04-14] MEDS: Propofol 1,000 MG/100 ML VIAL IV PRN ×7 (00:26→21:21)
[2018-04-14] MEDS: fentaNYL Citrate/PF 2,000 MCG in Sodium Chloride 0.9% 60 ML IV SCH ×4 (03:45→23:49)
[2018-04-14 04:46] LABS: #Lymphocytes 1.5 thou/uL (1.20-3.40); #Monocytes 1.2 thou/uL (0.11-0.59); #Neutrophils 10.9 thou/uL (1.40-6.50); %Basophils 0.1 % (0.0-1.0); %Eosinophils 0.1 % (0.0-10.0); %Lymphocytes 10.7 % (21.0-51.0); %Monocytes 9.1 % (0.0-10.0); Mean Corpuscular HGB CONC 34.3 g/dL (32.0-36.0); Mean Corpuscular Hemoglobin 32.1 pg (27.0-31.0); Mean Corpuscular Volume 93.6 fL (78.0-98.0); Mean Platelet Volume 7.6 fL (7.4-10.4); Platelet Count 225 thou/uL (130-400); RBC Distribution Width 12.9 % (11.5-14.5); Red Blood Cell (RBC) Count 3.73 mill/uL (4.70-6.10); White Blood Cell (WBC) Count 13.6 thou/uL (4.8-10.8)
[2018-04-14 05:04] LABS: Lactic Acid 2.2 mmol/L (0.5-2.2)
[2018-04-14] MEDS: Sodium Bicarbonate 70 MEQ in Sodium Chloride 0.45% 1,000 ML IV SCH (05:04)
[2018-04-14] MEDS: Vecuronium 10 MG VIAL IVP PRN ×5 (05:04→22:28)
[2018-04-14 05:08] LABS: Anion Gap 12 mmol/L (10-20); BUN (Urea Nitrogen) 13 mg/dL (8.9-20.6); CK (CPK) 1473 U/L (30-200); Calc. Creatinine Clearance 201 mL/min (70-130); Carbon Dioxide 28 mmol/L (22-29); Chloride 104 mmol/L (98-107); Estimated GFR-MDRD Greater than 90; Glucose 148 mg/dL (70-105); Potassium 3.8 mmol/L (3.5-5.1); Sodium 140 mmol/L (136-145)
[2018-04-14] MEDS: Meropenem 2 GM in Sodium Chloride 0.9% 100 ML IVPB SCH ×3 (06:07→21:21)
[2018-04-14 07:06] LABS: Actual Bicarbonate (HCO3a) 28.6 mEq/L (22-28); Base Excess (BEa) 4.4 mEq/L (-2.0 to +3.0); Calcium, Ionized 1.07 mmol/L (1.12-1.30); Carboxyhemoglobin (COHb) 0.6 gm% (0.0-3.0); O2 Tension (PaO2) 95.2 mmHg (80.0-100.0); Potassium - ABG Lab 3.62 mmol/L (3.70-5.30); pH, Arterial 7.46 (7.35-7.45)
[2018-04-14 07:09] LABS: Puncture Site RR
--- NOTE | 2018-04-14 08:26 | RAD ---
CHEST ONE VIEW: HISTORY: A 47-year-old male with a history of respiratory insufficiency. FINDINGS: NG tube and endotracheal tube are in satisfactory locations. There are bilateral pleural effusions a nd bilateral perihilar and lower lobe opacities, which appear more prominent than on the prior study. Heart size is within normal limits. IMPRESSION: Somewhat progressive appearing bilateral alveolar opacities and pleural effusion changes from the vita or study. Continue short-term followup. POS: [facility]
--- NOTE | 2018-04-14 08:45 | PDOC.PN ---
- Subjective Encounter Start Date: 04/14/18 Encounter Start Time: 10:10 Mr. Reyes was seen today in follow-up of Seizure and NSTEMI. He is intubated. No problems reported by staff. - Objective MAR Reviewed: Yes Vital Signs & Weight: Vital Signs (12 hours) Temp Pulse Resp BP 04/14/18 08:01 79 108/69 04/14/18 06:00 20 04/14/18 04:00 99.3 F 04/14/18 02:21 83 04/14/18 02:00 20 04/14/18 00:00 99.3 F 04/13/18 22:34 103 H 04/13/18 22:00 20 Weight Admit Weight 288 lb 2.307 oz Weight 293 lb 7 oz Most Recent Monitor Data Heart Rate from ECG 79 NIBP 121/61 NIBP BP-Mean 81 Respiration from ECG 20 SpO2 96 I&O: 04/13/18 04/14/18 04/15/18 06:59 06:59 06:59 Intake Total 4373.9 5661 Output Total 1510 1240 Balance 2863.9 4421 Result Diagrams: 04/14/18 03:45 04/14/18 03:45 Additional Labs: Accuchecks 04/14/18 04/14/18 04/13/18 03:44 00:16 20:14 POC Glucose 154 H 177 H 150 H 04/13/18 04/13/18 04/13/18 16:20 11:37 09:25 POC Glucose 178 H 141 H 132 H Phys Exam - Physical Examination HEENT: PERRLA Respiratory: no wheezing, no rales, no rhonchi, clear to auscultation bilateral Cardiovascular: RRR, no significant murmur, no rub Gastrointestinal: soft, non-tender, positive bowel sounds Musculoskeletal: pulses present, edema present + generalized edema Dx/Plan (1) Status epilepticus Code(s): G40.901 - EPILEPSY, UNSP, NOT INTRACTABLE, WITH STATUS EPILEPTICUS Status: Acute (2) NSTEMI (non-ST elevated myocardial infarction) Code(s): I21.4 - NON-ST ELEVATION (NSTEMI) MYOCARDIAL INFARCTION Status: Acute (3) Acute respiratory failure Code(s): J96.00 - ACUTE RESPIRATORY FAILURE, UNSP W HYPOXIA OR HYPERCAPNIA Status: Acute (4) Aspiration pneumonia Code(s): J69.0 - PNEUMONITIS DUE TO INHALATION OF FOOD AND VOMIT Status: Acute (5) Diabetes mellitus type 2, uncontrolled Code(s): E11.65 - TYPE 2 DIABETES MELLITUS WITH HYPERGLYCEMIA Status: Chronic - Plan * Seizure disorder with status epilepticus- he is stable on IV Keppra * Acute respiratory failure- stable * DM- blood glucose is stable * NSTEMI- echo has been ordered, continue as per Cardiology recommendations * Aspiration Pneumonia- Continue Vancomycin and Meropenem
[2018-04-14] MEDS: Famotidine/PF 20 mg/2ml Vial SLOW IVP SCH ×2 (09:12→20:02)
--- NOTE | 2018-04-14 09:17 | PRG ---
DATE OF SERVICE: SUBJECTIVE: He is awake, alert, follows commands for me. He self-extubated yesterday and had to be reintubated. OBJECTIVE: VITAL SIGNS: On exam, his temperature is 99.3, pulse 79, blood pressure 121/61, O2 saturation 96%. He is currently on propofol and fentanyl for sedation, but follows all commands through that. Total intake for 24 hours 5661, output 1240. Weight 293 pounds. HEENT: Unremarkable. NECK: No JVD. CHEST: Clear anteriorly. CARDIAC: S1 and S2. Regular. ABDOMEN: Soft. EXTREMITIES: No edema. His chest x-ray shows bilateral lower lobe infiltrative changes. LABORATORY DATA: Sodium 140, potassium 3.8, chloride 104, CO2 of 28, BUN 13, creatinine 0.8, and glucose 148. CPK 1473. Lactate 2.2. PH of 7.46, pCO2 of 41, PO2 of 95 on SIMV rate 20, tidal volume 500, PEEP 8, pressure support 10, and FiO2 of 50%. White blood cell count 13.6, hematocrit 34.9, and platelet count 225. ASSESSMENT: 1. Acute respiratory failure requiring mechanical ventilation. 2. Status post failed self extubation. 3. Non-Q-wave myocardial infarction. 4. Rhabdomyolysis. 5. Seizure with developing lactic acidosis. 6. Hyperglycemia at the time of admission which was not due to DKA. 7. Acute renal insufficiency, which is better. PLAN: 1. Discontinue the bicarbonate drip. 2. Decrease respiratory rate and work towards extubation over the next 48 hours. 3. Continue enteral tube feeds. Job ID: [id number]
[2018-04-14] MEDS: Acetaminophen 500 MG TAB PO PRN (09:18)
[2018-04-14] MEDS: levETIRAcetam In NaCl (Iso-Os) 1,000 MG in Premix Bag 1 BAG IVPB SCH ×2 (09:19→20:04)
--- NOTE | 2018-04-14 10:47 | OP ---
DATE OF PROCEDURE: 04/13/2018 PROCEDURE: Endotracheal intubation. PREOPERATIVE DIAGNOSIS: The patient self-extubated and was in continued respiratory failure. POSTOPERATIVE DIAGNOSIS: Successful re-intubation. ANESTHESIA: He was given 20 mg of propofol IV. DESCRIPTION OF PROCEDURE: This patient self-extubated. I was called by nursing staff to reintubate him as he was not doing well. Initially, they gave me a GlideScope with a 3.0 handle on laryngoscope blade. With that, I could not see his cords. They did locate a size 4 laryngoscope blade, which I could easily see the cords with, and I intubated on 1st attempt with a 7.5 endotracheal tube without difficulty. The tube was placed about 25 cm at the lip. Postoperative x-ray is pending. End tidal CO2 was yellow and breath sounds were confirmed by auscultation. Job ID: [id number]
--- NOTE | 2018-04-14 15:49 | CON ---
DATE OF CONSULTATION: 04/14/2018 SUBJECTIVE: No significant changes noted overnight. The patient did have 8 beats of nonsustained VT present. His overall LVEF does appear moderately diminished. Overall, LVEF cannot be quantitatively ascertained due to poor endocardial definition. OBJECTIVE: VITAL SIGNS: Blood pressure 113/72, pulse 72, respiration 20. LUNGS: Clear to auscultation. HEART: Regular rate and rhythm. ABDOMEN: Obese, mildly distended. EXTREMITIES: 2+ pitting edema with chronic stasis dermatitis present. PERTINENT LABORATORY DATA: Hemoglobin 12. Creatinine 0.87. IMPRESSION: 1. Cardiomyopathy of unknown etiology. 2. Nonsustained ventricular tachycardia. 3. Non-Q-wave myocardial infarction. 4. Seizure. 5. Respiratory failure. RECOMMENDATIONS: At this point, we will continue with conservative therapy. His overall LVEF does appear moderately diminished and may be related to underlying coronary artery disease. This may also be due to underlying condition. At this point, we will continue with conservative treatment. I would recommend low-dose Coreg via NG tube. We will also consider low-dose YARELY inhibitor therapy. Job ID: [id number]
[2018-04-14] MEDS: HumaLOG 300 UNITS/3 ML VIAL SC PRN (16:01)
[2018-04-14] MEDS: Lorazepam 2 MG/ML VIAL SLOW IVP PRN ×2 (16:12→20:02)
[2018-04-15] MEDS: Propofol 1,000 MG/100 ML VIAL IV PRN ×8 (00:54→22:02)
[2018-04-15 04:41] LABS: #Lymphocytes 1.3 thou/uL (1.20-3.40); #Monocytes 1.4 thou/uL (0.11-0.59); #Neutrophils 12.2 thou/uL (1.40-6.50); %Basophils 0.1 % (0.0-1.0); %Eosinophils 0.2 % (0.0-10.0); %Lymphocytes 8.8 % (21.0-51.0); %Monocytes 9.1 % (0.0-10.0); %Neutrophils 81.9 % (42.0-75.0); Hemoglobin 12.8 g/dL (14.0-18.0); Mean Corpuscular HGB CONC 33.7 g/dL (32.0-36.0); Mean Corpuscular Hemoglobin 32.1 pg (27.0-31.0); Mean Platelet Volume 7.2 fL (7.4-10.4); Platelet Count 232 thou/uL (130-400); RBC Distribution Width 12.8 % (11.5-14.5)
[2018-04-15 04:58] LABS: Anion Gap 13 mmol/L (10-20); BUN (Urea Nitrogen) 16 mg/dL (8.9-20.6); Calc. Creatinine Clearance 195 mL/min (70-130); Calcium 8.8 mg/dL (7.8-10.44); Carbon Dioxide 28 mmol/L (22-29); Chloride 107 mmol/L (98-107); Estimated GFR-MDRD Greater than 90; Glucose 178 mg/dL (70-105); Potassium 4.4 mmol/L (3.5-5.1); Sodium 144 mmol/L (136-145)
[2018-04-15 05:07] LABS: Critical Call Chem Troponin I RESULT DECREASING; Troponin I 4.663 ng/mL (< 0.028)
[2018-04-15] MEDS: Meropenem 2 GM in Sodium Chloride 0.9% 100 ML IVPB SCH ×3 (06:21→22:02)
[2018-04-15] MEDS: fentaNYL Citrate/PF 2,000 MCG in Sodium Chloride 0.9% 60 ML IV SCH ×2 (06:26→17:56)
[2018-04-15 07:20] LABS: Base Excess (BEa) 4.3 mEq/L (-2.0 to +3.0); CO2 Tension 55.6 mmHg (35.0-45.0); Calcium, Ionized 1.15 mmol/L (1.12-1.30); Carboxyhemoglobin (COHb) 0.7 gm% (0.0-3.0); O2 Tension (PaO2) 84.4 mmHg (80.0-100.0); Potassium - ABG Lab 4.28 mmol/L (3.70-5.30); pH, Arterial 7.36 (7.35-7.45)
[2018-04-15 07:23] LABS: Puncture Site RRA
[2018-04-15] MEDS: Vecuronium 10 MG VIAL IVP PRN ×4 (07:25→22:32)
[2018-04-15] MEDS: Famotidine/PF 20 mg/2ml Vial SLOW IVP SCH ×2 (07:51→20:16)
[2018-04-15] MEDS: Acetaminophen 500 MG TAB PO PRN (07:51)
[2018-04-15] MEDS: HumaLOG 300 UNITS/3 ML VIAL SC PRN ×4 (07:54→20:20)
--- NOTE | 2018-04-15 08:09 | RAD ---
PORTABLE CHEST: Date: 04/15/18 PROVIDED CLINICAL HISTORY: Respiratory insufficiency. FINDINGS: Comparison with 04/14/18. Significant interval change with respect to the prior examination is not apparent. IMPRESSION: As above. POS: [facility]
[2018-04-15] MEDS: levETIRAcetam In NaCl (Iso-Os) 1,000 MG in Premix Bag 1 BAG IVPB SCH ×2 (08:27→20:14)
[2018-04-15] MEDS: Lorazepam 2 MG/ML VIAL SLOW IVP PRN ×4 (10:40→22:32)
--- NOTE | 2018-04-15 11:14 | EKG ---
Test Reason : Blood Pressure : / mmHG Vent. Rate : 124 BPM Atrial Rate : 124 BPM P-R Int : 140 ms QRS Dur : 094 ms QT Int : 316 ms P-R-T Axes : 058 009 109 degrees QTc Int : 453 ms Sinus tachycardia Possible Anterior infarct , age undetermined Abnormal ECG Confirmed by SARA ROBERTSON ([id number]), image editor TJ VILLA ([id number]) on 04/15/2018 11:14:23 AM Referred By: Confirmed By:SARA ROBERTSON
[2018-04-15] MEDS: Metoclopramide HCl 10 MG/2 ML VIAL IVP SCH ×2 (12:59→17:34)
[2018-04-15] MEDS: Furosemide 40 MG/4 ML VIAL SLOW IVP SCH (12:59)
[2018-04-15] MEDS: Carvedilol 6.25 MG TAB PO SCH (15:53)
[2018-04-15] MEDS: Atorvastatin Calcium 40 MG TAB PO SCH (20:16)
--- NOTE | 2018-04-15 21:05 | PDOC.PN ---
- Subjective Encounter Start Date: 04/15/18 Encounter Start Time: 12:00 -: non-verbal Patient seen and examined for Resp failure. On [facility] Vent. No overnight events - Objective MAR Reviewed: Yes Vital Signs & Weight: Vital Signs (12 hours) Temp Pulse Resp BP Pulse Ox 04/15/18 19:53 16 04/15/18 19:14 74 16 94 L 04/15/18 19:00 99.3 F 04/15/18 17:37 16 04/15/18 16:00 99.5 F 16 04/15/18 15:53 205/118 H 04/15/18 14:32 109 H 141/84 H 04/15/18 14:00 16 04/15/18 12:59 79 138/76 04/15/18 12:00 100.1 F H 16 04/15/18 10:58 87 122/72 04/15/18 10:00 16 Weight Admit Weight 288 lb 2.307 oz Weight 301 lb 9.6 oz Most Recent Monitor Data Heart Rate from ECG 70 NIBP 150/103 NIBP BP-Mean 118 Respiration from ECG 16 SpO2 93 I&O: 04/14/18 04/15/18 04/16/18 06:59 06:59 06:59 Intake Total 5661 3601.5 1724.3 Output Total 1240 1565 2935 Balance 4421 2036.5 -1210.7 Result Diagrams: 04/16/18 04:10 04/16/18 03:30 Additional Labs: Accuchecks 04/15/18 04/15/18 04/15/18 20:20 15:58 13:05 POC Glucose 183 H 188 H 168 H 04/15/18 04/15/18 04/15/18 07:36 04:09 00:48 POC Glucose 179 H 191 H 193 H EKG Reviewed by me: Yes (Tele SR) Phys Exam - Physical Examination Constitutional: NAD (on Vent) Respiratory: no wheezing Coarse BS B/L with rales at bases Cardiovascular: RRR, no rub Gastrointestinal: soft, positive bowel sounds Dx/Plan (1) Status epilepticus Code(s): G40.901 - EPILEPSY, UNSP, NOT INTRACTABLE, WITH STATUS EPILEPTICUS Status: Acute (2) Acute respiratory failure Code(s): J96.00 - ACUTE RESPIRATORY FAILURE, UNSP W HYPOXIA OR HYPERCAPNIA Status: Acute Qualifiers: Respiratory failure complication: hypoxia and hypercapnia Qualified Code(s) : J96.01 - Acute respiratory failure with hypoxia; J96.02 - Acute respiratory failure with hypercapnia (3) Aspiration pneumonia Code(s): J69.0 - PNEUMONITIS DUE TO INHALATION OF FOOD AND VOMIT Status: Suspected (4) NSTEMI (non-ST elevated myocardial infarction) Code(s): I21.4 - NON-ST ELEVATION (NSTEMI) MYOCARDIAL INFARCTION Status: Suspected Comment: with NSVT (5) Morbid obesity with BMI of 40.0-44.9, adult Code(s): E66.01 - MORBID (SEVERE) OBESITY DUE TO EXCESS CALORIES; Z68.41 - BODY MASS INDEX (BMI) 40.0-44.9, ADULT Status: Chronic (6) Other issues per previous notes - Plan cont current plan of care, continue antibiotics, respiratory therapy, DVT proph w/lovenox, DVT proph w/SCDs Cont Keppra/Atbx/Steroids -: Diuretics started -: AM labs Review of Systems - Review of Systems Other: Cannot obtain due to current mentation - Medications/Allergies Allergies/Adverse Reactions: Allergies Allergy/AdvReac Type Severity Reaction Status Date / Time codeine Allergy Verified 12/13/16 11:01 No Known Drug Allergies Allergy Verified 03/26/13 20:49 Penicillins Allergy Verified 12/13/16 11:01 Sulfa (Sulfonamide Allergy Verified 12/13/16 11:01 Antibiotics) ziprasidone Allergy Verified 12/13/16 11:01 Medications: Current Medications Acetaminophen (Tylenol) 1,000 mg PO Q6H PRN PRN Reason: Fever > 101 Last Admin: 04/15/18 07:51 Dose: 1,000 mg Albuterol/Ipratropium (Duoneb) 3 ml NEB [id number] REDDY Last Admin: 04/15/18 19:14 Dose: 3 ml Aspirin (Ecotrin) 81 mg PO DAILY REDDY Atorvastatin Calcium (Lipitor) 40 mg PO HS REDDY Last Admin: 04/15/18 20:16 Dose: 40 mg Carvedilol (Coreg) 6.25 mg PO BID-WM REDDY Last Admin: 04/15/18 15:53 Dose: 6.25 mg Dextrose/Water (Dextrose 50%) 25 gm SLOW IVP PRN PRN PRN Reason: Hypoglycemia Famotidine (Pepcid) 20 mg SLOW IVP BID [facility] Last Admin: 04/15/18 20:16 Dose: 20 mg Furosemide (Lasix) 40 mg SLOW IVP 0600,1400 [facility] Last Admin: 04/15/18 12:59 Dose: 40 mg Glucagon (Glucagon) 1 mg IM PRN PRN PRN Reason: Hypoglycemia Dextrose/Water (D5w) 1,000 mls @ 0 mls/hr IV .Q0M PRN PRN Reason: Hypoglycemia Meropenem 2 gm/ Sodium (Chloride) 100 mls @ 200 mls/hr IVPB Q8HR [facility] Last Admin: 04/15/18 14:34 Dose: 100 mls Potassium Chloride 40 meq/ (Sodium Chloride) 270 mls @ 135 mls/hr IVPB ASDIR PRN PRN Reason: FOR SERUM K+ 2.5 - 3.5 Potassium Chloride 40 meq/ (Device) 100 mls @ 50 mls/hr IVPB ASDIR PRN PRN Reason: FOR SERUM K+ 2.5 - 3.5 Magnesium Sulfate 1 gm/ Sodium (Chloride) 102 mls @ 102 mls/hr IV PRN PRN PRN Reason: MAG LEVEL 1.4 - 2.0 Magnesium Sulfate 2 gm/ Device 100 mls @ 100 mls/hr IVPB ASDIR PRN PRN Reason: MAGNESIUM < 1.4 Potassium Phosphate 9 mmol/ (Sodium Chloride) 103 mls @ 25.75 mls/hr IVPB ASDIR PRN PRN Reason: Phosphate 1.0-1.8 Potassium Phosphate 12 mmol/ (Sodium Chloride) 254 mls @ 63.5 mls/hr IV ASDIR PRN PRN Reason: Serum phosphate 0.5-0.9 Potassium Phosphate 15 mmol/ (Sodium Chloride) 255 mls @ 63.75 mls/hr IV ASDIR PRN PRN Reason: Serum Phos < 0.5 Fentanyl Citrate 2,000 mcg/ (Sodium Chloride) 100 mls @ 0 mls/hr IV INF [facility]; Protocol Stop: 05/11/18 21:26 Last Admin: 04/15/18 17:56 Dose: 100 mls Fentanyl Citrate (Fentanyl Bolus) 250 mls @ 0 mls/hr IVPB PRN PRN PRN Reason: Breakthrough pain/agitation Stop: 05/11/18 21:26 Levetiracetam 1,000 mg/ Device 100 mls @ 200 mls/hr IVPB BID [facility] Last Admin: 04/15/18 20:14 Dose: 100 mls Dexmedetomidine HCl 400 mcg/ (Sodium Chloride) 100 mls @ 0 mls/hr IVPB INF [facility] ; Protocol Last Admin: 04/15/18 15:03 Dose: 100 mls Insulin Human Lispro (Humalog) 0 units SC .AGGRESSIVE SLIDING PRN PRN Reason: Aggressive Correctional Scale Last Admin: 04/15/18 20:20 Dose: 3 unit Lorazepam (Ativan) 2 mg SLOW IVP Q1H PRN PRN Reason: Breakthrough agitation Stop: 05/11/18 21:26 Last Admin: 04/15/18 19:41 Dose: 2 mg Magnesium Oxide (Magnesium Oxide) 400 mg PO BIDPRN PRN PRN Reason: FOR SERUM MAG 1.4 - 2.0 Magnesium Oxide (Magnesium Oxide) 800 mg PO PRN PRN PRN Reason: FOR SERUM MAG < 1.4 Methylprednisolone Sodium Succinate (Solu-Medrol) 20 mg IVP Q6HR [facility] Last Admin: 04/15/18 17:33 Dose: 20 mg Metoclopramide HCl (Reglan) 10 mg IVP Q6HR [facility] Last Admin: 04/15/18 17:34 Dose: 10 mg Miscellaneous Medication (Phos-Nak) 1 pkt PO TIDPRN PRN PRN Reason: FOR PHOS LEVEL 1.0 - 1.8 Miscellaneous Medication (Phos-Nak) 2 pkt PO TIDPRN PRN PRN Reason: FOR PHOS LEVEL 0.5 - 1.0 Morphine Sulfate (Morphine) 2 mg SLOW IVP Q1H PRN PRN Reason: BREAKTHROUGH PAIN/Agitation Stop: 05/11/18 21:26 Ccu Electrolyte (Replacement Protocol) 0 each FS PRN PRN PRN Reason: FOR ELECTROLYTE REPLACEMENT Discontinue Previous Narcotic Pain Medications And Benzodiazepines 1 each FS .ONE [facility] Stop: 05/11/18 21:26 Potassium Chloride (K-Dur) 40 meq PO ASDIR PRN PRN Reason: FOR SERUM K+ 2.5 - 3.5 Potassium Chloride (Klor-Con) 40 meq PER TUBE ASDIR PRN PRN Reason: FOR SERUM K+ 2.5-3.5 Propofol (Diprivan) 1,000 mg IV INF PRN; Protocol PRN Reason: TO ACHIEVE GOAL RASS Stop: 05/11/18 21:26 Last Admin: 04/15/18 19:01 Dose: 1,000 mg Propofol (Diprivan Bolus) 20 mg IV Q5MIN PRN PRN Reason: BREAKTHROUGH AGITATION Stop: 05/11/18 21:26 Sodium Chloride (Flush - Normal Saline) 10 ml IVF Q12HR REDDY Last Admin: 04/15/18 20:16 Dose: 10 ml Sodium Chloride (Flush - Normal Saline) 10 ml IVF PRN PRN PRN Reason: Saline Flush Vecuronium [place] (Norcuron) 10 mg IVP Q30MIN PRN PRN Reason: Agitation Last Admin: 04/15/18 14:50 Dose: 10 mg
[2018-04-15] MEDS: hydrALAZINE 20 MG/ML VIAL SLOW IVP PRN (22:02)
--- NOTE | 2018-04-15 23:18 | PRG ---
DATE OF SERVICE: 04/15/2018 HISTORY OF PRESENT ILLNESS: Mr. Reyes remains sedated. His ejection fraction is less than 15% apparently. His heart rate is in 60s, blood pressure has been elevated from a diastolic blood pressure standpoint today. He hs been followed by Cardiology. Chest radiograph shows an increase in diffuse infiltrates compared to yesterday. PHYSICAL EXAMINATION: LUNGS: Remarkable for coarse equal breath sounds. HEART: Regular rate and rhythm. ABDOMEN: Soft and nontender. EXTREMITIES: No clubbing, cyanosis, or edema. IMPRESSION: 1. Congestive heart failure. 2. Nonsustained ventricular tachycardia. 3. Non-Q-wave myocardial infarction. 4. Seizure? Related to the ventricular tachycardia. 5. Respiratory failure, currently not weanable. 6. When sedation is decreased, he is encephalopathic. Precedex was added. He is still requiring intermittent paralytics. He will remain mechanically ventilated. He is certainly not weanable. Lasix twice a day intravenously was added today when I made rounds this morning. Hopefully, we will see adequate diuresis and gradual improvement of his pulmonary function gas exchange and lung compliance. CRITICAL CARE TIME: 30 minutes. Job ID: [id number]
[2018-04-16] MEDS: Propofol 1,000 MG/100 ML VIAL IV PRN ×6 (00:56→21:25)
[2018-04-16] MEDS: Metoclopramide HCl 10 MG/2 ML VIAL IVP SCH ×4 (00:57→18:33)
[2018-04-16] MEDS: Labetalol HCl 100 MG/20 ML VIAL SLOW IVP PRN ×3 (01:10→17:03)
[2018-04-16] MEDS: fentaNYL Citrate/PF 2,000 MCG in Sodium Chloride 0.9% 60 ML IV SCH ×3 (02:45→23:24)
[2018-04-16] MEDS: hydrALAZINE 20 MG/ML VIAL SLOW IVP PRN ×2 (03:34→10:40)
[2018-04-16 04:52] LABS: #Lymphocytes 1.5 thou/uL (1.20-3.40); #Monocytes 1.4 thou/uL (0.11-0.59); #Neutrophils 10.8 thou/uL (1.40-6.50); %Basophils 0.1 % (0.0-1.0); %Eosinophils 0.3 % (0.0-10.0); %Monocytes 9.8 % (0.0-10.0); %Neutrophils 78.8 % (42.0-75.0); Hemoglobin 13.5 g/dL (14.0-18.0); Mean Corpuscular HGB CONC 33.5 g/dL (32.0-36.0); Mean Corpuscular Hemoglobin 31.7 pg (27.0-31.0); Mean Corpuscular Volume 94.7 fL (78.0-98.0); Mean Platelet Volume 7.4 fL (7.4-10.4); Platelet Count 251 thou/uL (130-400); RBC Distribution Width 12.7 % (11.5-14.5); Red Blood Cell (RBC) Count 4.27 mill/uL (4.70-6.10); White Blood Cell (WBC) Count 13.7 thou/uL (4.8-10.8)
[2018-04-16 04:58] LABS: Anion Gap 13 mmol/L (10-20); BUN (Urea Nitrogen) 22 mg/dL (8.9-20.6); Calc. Creatinine Clearance 210 mL/min (70-130); Carbon Dioxide 30 mmol/L (22-29); Chloride 103 mmol/L (98-107); Estimated GFR-MDRD Greater than 90; Glucose 184 mg/dL (70-105); Magnesium 2.1 mg/dL (1.6-2.6); Potassium 4.4 mmol/L (3.5-5.1); Sodium 142 mmol/L (136-145)
[2018-04-16] MEDS: Meropenem 2 GM in Sodium Chloride 0.9% 100 ML IVPB SCH ×3 (06:24→21:25)
[2018-04-16] MEDS: Furosemide 40 MG/4 ML VIAL SLOW IVP SCH ×2 (06:24→14:36)
[2018-04-16] MEDS: Lorazepam 2 MG/ML VIAL SLOW IVP PRN ×3 (07:20→17:07)
[2018-04-16 07:27] LABS: Base Excess (BEa) 6.7 mEq/L (-2.0 to +3.0); CO2 Tension 53.4 mmHg (35.0-45.0); Calcium, Ionized 1.18 mmol/L (1.12-1.30); Carboxyhemoglobin (COHb) 1.1 gm% (0.0-3.0); Hemoglobin (Hb) 15.1 g/dL (14.0-18.0); Potassium - ABG Lab 3.98 mmol/L (3.70-5.30); pH, Arterial 7.41 (7.35-7.45)
[2018-04-16 07:28] LABS: Puncture Site RRA
[2018-04-16] MEDS: Famotidine/PF 20 mg/2ml Vial SLOW IVP SCH ×2 (08:11→20:18)
[2018-04-16] MEDS: Carvedilol 6.25 MG TAB PO SCH ×2 (08:11→16:17)
[2018-04-16] MEDS: levETIRAcetam In NaCl (Iso-Os) 1,000 MG in Premix Bag 1 BAG IVPB SCH ×2 (08:23→20:20)
[2018-04-16] MEDS: HumaLOG 300 UNITS/3 ML VIAL SC PRN ×5 (08:23→23:47)
[2018-04-16] MEDS: Aspirin Chewable 81 MG TAB PO SCH (08:31)
[2018-04-16] MEDS ORDERED: Aspirin 81 mg Enteric Coated Tablet PO SCH (09:00)
--- NOTE | 2018-04-16 09:01 | RAD ---
PORTABLE CHEST: Date: 04/16/18 PROVIDED CLINICAL HISTORY: Respiratory insufficiency. FINDINGS: Comparison made with study dated 04/15/18. Endotracheal tube and enteric catheter are again noted in similar positions. There has been improveme nt in bibasilar pleural parenchymal opacity. No evidence for pneumothorax. IMPRESSION: Improvement in bibasilar pleural parenchymal opacity. POS: [facility]
--- NOTE | 2018-04-16 09:47 | PDOC.PN ---
- Subjective Encounter Start Date: 04/16/18 Encounter Start Time: 09:46 Subjective: Seen and examined still on life support - Objective Vital Signs & Weight: Vital Signs (12 hours) Temp Pulse Resp BP Pulse Ox 04/16/18 08:12 62 154/97 H 04/16/18 08:11 154/97 H 04/16/18 08:00 16 96 04/16/18 07:00 97.9 F 04/16/18 06:00 16 04/16/18 04:00 99.1 F 16 04/16/18 03:34 70 164/114 H 04/16/18 02:19 68 16 94 L 04/16/18 02:00 16 04/16/18 01:10 75 165/115 H 04/16/18 00:00 16 04/15/18 23:00 98.7 F 04/15/18 22:02 68 169/125 H 04/15/18 22:00 16 04/15/18 21:47 65 16 95 Weight Admit Weight 288 lb 2.307 oz Weight 298 lb 4 oz Most Recent Monitor Data Heart Rate from ECG 54 NIBP 154/99 NIBP BP-Mean 117 Respiration from ECG 16 SpO2 96 I&O: 04/15/18 04/16/18 04/17/18 06:59 06:59 06:59 Intake Total 3601.5 2849.3 50 Output Total 1565 3735 2150 Balance 2036.5 -885.7 -2100 Result Diagrams: 04/16/18 04:10 04/16/18 03:30 Additional Labs: Accuchecks 04/16/18 04/16/18 04/16/18 08:11 04:16 00:11 POC Glucose 228 H 174 H 185 H 04/15/18 04/15/18 04/15/18 20:20 15:58 13:05 POC Glucose 183 H 188 H 168 H Phys Exam - Physical Examination ET tube in place Neck: no nodes, no JVD Respiratory: no wheezing, no rales vented sounds Cardiovascular: no significant murmur, no rub Gastrointestinal: soft, non-tender, no distention, positive bowel sounds Musculoskeletal: pulses present Dx/Plan (1) Acute respiratory failure Code(s): J96.00 - ACUTE RESPIRATORY FAILURE, UNSP W HYPOXIA OR HYPERCAPNIA Status: Acute Qualifiers: Respiratory failure complication: hypoxia and hypercapnia Qualified Code(s) : J96.01 - Acute respiratory failure with hypoxia; J96.02 - Acute respiratory failure with hypercapnia (2) Status epilepticus Code(s): G40.901 - EPILEPSY, UNSP, NOT INTRACTABLE, WITH STATUS EPILEPTICUS Status: Acute (3) Diabetes mellitus type 2, uncontrolled Code(s): E11.65 - TYPE 2 DIABETES MELLITUS WITH HYPERGLYCEMIA Status: Chronic (4) Morbid obesity with BMI of 40.0-44.9, adult Code(s): E66.01 - MORBID (SEVERE) OBESITY DUE TO EXCESS CALORIES; Z68.41 - BODY MASS INDEX (BMI) 40.0-44.9, ADULT Status: Chronic (5) Other issues per previous notes Status: Chronic (6) Aspiration pneumonia Code(s): J69.0 - PNEUMONITIS DUE TO INHALATION OF FOOD AND VOMIT Status: Suspected (7) NSTEMI (non-ST elevated myocardial infarction) Code(s): I21.4 - NON-ST ELEVATION (NSTEMI) MYOCARDIAL INFARCTION Status: Suspected Comment: with NSVT - 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
[2018-04-16] MEDS ORDERED: Lorazepam 2 MG/ML VIAL SLOW IVP PRN (12:08)
[2018-04-16] MEDS ORDERED: Carvedilol 6.25 MG TAB PO SCH ×2 (12:10→12:15)
[2018-04-16] MEDS ORDERED: Lisinopril 5 MG TAB PO SCH ×2 (12:10→12:15)
[2018-04-16] MEDS ORDERED: Haloperidol Lactate 5 MG/ML VIAL ONE (12:10)
[2018-04-16] MEDS ORDERED: Lorazepam 2 MG/ML VIAL ONE (12:11)
[2018-04-16] MEDS ORDERED: Haloperidol Lactate 5 MG/ML VIAL SLOW IVP ONE (12:11)
[2018-04-16] MEDS: Haloperidol Lactate 5 MG/ML VIAL IM SCH ×3 (12:42→20:19)
[2018-04-16] MEDS: Lorazepam 2 MG/ML VIAL SLOW IVP SCH ×3 (12:42→20:19)
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
[2018-04-16] MEDS: Atorvastatin Calcium 40 MG TAB PO SCH (20:18)
[2018-04-16] MEDS: Lisinopril 5 MG TAB PO SCH (20:18)
[2018-04-17] MEDS: Haloperidol Lactate 5 MG/ML VIAL IM SCH ×6 (00:37→20:55)
[2018-04-17] MEDS: Lorazepam 2 MG/ML VIAL SLOW IVP SCH ×6 (00:38→20:55)
[2018-04-17] MEDS: Metoclopramide HCl 10 MG/2 ML VIAL IVP SCH ×4 (00:38→19:35)
[2018-04-17] MEDS: hydrALAZINE 20 MG/ML VIAL SLOW IVP PRN (01:40)
[2018-04-17] MEDS: HumaLOG 300 UNITS/3 ML VIAL SC PRN ×3 (04:15→15:32)
[2018-04-17 05:10] LABS: Hemoglobin 15.3 g/dL (14.0-18.0); Mean Corpuscular HGB CONC 33.1 g/dL (32.0-36.0); Mean Corpuscular Hemoglobin 31.1 pg (27.0-31.0); Mean Corpuscular Volume 93.9 fL (78.0-98.0); Mean Platelet Volume 7.5 fL (7.4-10.4); Platelet Count 291 thou/uL (130-400); RBC Distribution Width 12.7 % (11.5-14.5); Red Blood Cell (RBC) Count 4.91 mill/uL (4.70-6.10); White Blood Cell (WBC) Count 15.8 thou/uL (4.8-10.8)
[2018-04-17 05:27] LABS: Anion Gap 16 mmol/L (10-20); BUN (Urea Nitrogen) 29 mg/dL (8.9-20.6); Calc. Creatinine Clearance 221 mL/min (70-130); Calcium 9.4 mg/dL (7.8-10.44); Carbon Dioxide 32 mmol/L (22-29); Chloride 98 mmol/L (98-107); Estimated GFR-MDRD Greater than 90; Glucose 190 mg/dL (70-105); Potassium 4.1 mmol/L (3.5-5.1); Sodium 142 mmol/L (136-145)
[2018-04-17 05:29] LABS: Band 6 % (5-11); Lymphocytes 10 % (21-51); MDiff Complete? YES; Monocytes 7 % (0-10); Neutrophil 77 % (42-75)
[2018-04-17] MEDS: Propofol 1,000 MG/100 ML VIAL IV PRN ×6 (05:34→23:55)
[2018-04-17] MEDS: Furosemide 40 MG/4 ML VIAL SLOW IVP SCH ×2 (05:47→13:45)
[2018-04-17] MEDS: Meropenem 2 GM in Sodium Chloride 0.9% 100 ML IVPB SCH ×3 (05:47→21:48)
[2018-04-17 06:53] LABS: Actual Bicarbonate (HCO3a) 36.5 mEq/L (22-28); Base Excess (BEa) 10.5 mEq/L (-2.0 to +3.0); CO2 Tension 52.5 mmHg (35.0-45.0); Calcium, Ionized 1.15 mmol/L (1.12-1.30); Carboxyhemoglobin (COHb) 0.9 gm% (0.0-3.0); Hemoglobin (Hb) 15.8 g/dL (14.0-18.0); O2 Tension (PaO2) 62.4 mmHg (80.0-100.0); Potassium - ABG Lab 3.82 mmol/L (3.70-5.30); pH, Arterial 7.46 (7.35-7.45)
[2018-04-17 06:54] LABS: ALV-art Gradient 264.125 (0-20); Puncture Site LRA
--- NOTE | 2018-04-17 08:08 | PRG ---
DATE OF SERVICE: 04/17/2018 PULMONARY/CRITICAL CARE PROGRESS NOTE TIME SPENT: 35 minutes of critical care time. SUBJECTIVE: The patient remains intubated on mechanical ventilation. He is heavily sedated, having a difficult time with oxygenation. OBJECTIVE: VITAL SIGNS: On exam, his temperature is 98.4, pulse 66, blood pressure 120/79. A 24-hour intake 2986, output 6710. HEENT: Unremarkable. NECK: No JVD. LUNGS: He has coarse crackles at the bases. CARDIAC: S1 and S2, regular. ABDOMEN: Soft, obese, and nontender. EXTREMITIES: Edematous. LABORATORY DATA: Sodium 142, potassium 4.1, chloride 98, CO2 of 32, BUN 29, creatinine 0.7, and glucose 190. PH of 7.46, pCO2 of 52, and pO2 of 62, on SIMV rate of 16, tidal volume 500, PEEP 8, pressure support 10, and FiO2 of 55%. White blood cell count 15.8, hematocrit 46.1, and platelet count 291. Chest x-ray shows effusions at both bases. ASSESSMENT: 1. Congestive heart failure. 2. Acute hypoxic respiratory failure. 3. Nonsustained ventricular tachycardia. 4. Non-Q-wave myocardial infarction at the time of admission. 5. Mild rhabdomyolysis at the time of admission. PLAN: 1. Plan to continue with diuresis as tolerated. 2. Continue antibiotics through tomorrow and then stop that will give him 7 full days. 3. Adjust PEEP on the ventilator. Job ID: [id number]
--- NOTE | 2018-04-17 08:32 | RAD ---
AP CHEST: Date: 04-17-18 Comparison: 04-16-18 FINDINGS: AP chest demonstrates nasogastric and endotracheal tubes to be in place. Bilateral pleural effusions seen. Pulmonary vascular congestion seen. Airspace opacity seen in both lungs. IMPRESSION: Pulmonary vascular congestion and bilateral pleural effusions. Lines and tubes in good position. POS: [facility]
[2018-04-17] MEDS: Famotidine/PF 20 mg/2ml Vial SLOW IVP SCH ×2 (08:36→20:55)
[2018-04-17] MEDS: Aspirin Chewable 81 MG TAB PO SCH (08:38)
[2018-04-17] MEDS: levETIRAcetam In NaCl (Iso-Os) 1,000 MG in Premix Bag 1 BAG IVPB SCH ×2 (08:38→20:56)
[2018-04-17] MEDS: Carvedilol 6.25 MG TAB PO SCH ×2 (08:39→16:54)
[2018-04-17] MEDS: Lisinopril 5 MG TAB PO SCH ×2 (08:39→20:56)
[2018-04-17] MEDS: Levothyroxine 100 MCG SDV IVP SCH (08:52)
[2018-04-17] MEDS: fentaNYL Citrate/PF 2,000 MCG in Sodium Chloride 0.9% 60 ML IV SCH ×2 (08:56→19:07)
--- NOTE | 2018-04-17 18:09 | PRG ---
DATE OF SERVICE: SUBJECTIVE: No significant change noted over the weekend. He continues to be unweanable. OBJECTIVE: VITAL SIGNS: Blood pressure 111/77, pulse 78, and temperature afebrile. LUNGS: Clear to auscultation. HEART: Regular rate and rhythm. ABDOMEN: Soft, nontender, and nondistended. EXTREMITIES: 1+ pitting edema. PERTINENT LABS: Hemoglobin 15.3. IMPRESSION: 1. Respiratory failure. 2. Seizure disorder. 3. Cardiomyopathy, unknown cause. 4. Nonsustained ventricular tachycardia. RECOMMENDATIONS: At this point, I would continue to stay the course. Had no new recommendations. Continue current medical therapy. Disposition of his cardiac status will have to be done either later as an inpatient or as an outpatient. Compliance issues are certainly come into play. The patient has been noncompliant with seizure medications and I am concerned about noncompliance with CV medications down the road. We will continue to follow peripherally. Job ID: [id number]
--- NOTE | 2018-04-17 20:51 | PDOC.PN ---
- Subjective Encounter Start Date: 04/17/18 Encounter Start Time: 20:49 Subjective: Seen and examined -still not weanable - Objective Vital Signs & Weight: Vital Signs (12 hours) Temp Pulse Resp BP Pulse Ox 04/17/18 18:55 16 93 L 04/17/18 18:49 78 103/65 04/17/18 18:00 15 04/17/18 16:54 147/94 H 04/17/18 16:00 15 04/17/18 15:00 99.0 F 04/17/18 14:15 87 127/83 04/17/18 14:14 88 18 90 L 04/17/18 14:00 14 04/17/18 12:00 14 04/17/18 11:00 98.3 F 04/17/18 10:19 66 130/78 04/17/18 10:18 65 14 92 L 04/17/18 10:00 15 Weight Admit Weight 288 lb 2.307 oz Weight 291 lb 2 oz Most Recent Monitor Data Heart Rate from ECG 79 NIBP 121/82 NIBP BP-Mean 95 Respiration from ECG 17 SpO2 93 I&O: 04/16/18 04/17/18 04/18/18 06:59 06:59 06:59 Intake Total 2849.3 2986 960 Output Total 0855 6710 4887 [facility]885.7 -3724 -3927 Result Diagrams: 04/17/18 04:28 04/17/18 04:28 Additional Labs: Accuchecks 04/17/18 04/17/18 04/17/18 20:28 15:31 12:13 POC Glucose 161 H 200 H 130 H 04/17/18 04/17/18 04/16/18 08:30 04:15 23:47 POC Glucose 200 H 186 H 192 H Phys Exam - Physical Examination Constitutional: NAD intubated vented sounds Cardiovascular: no significant murmur, no rub Gastrointestinal: non-tender, no distention, positive bowel sounds Musculoskeletal: no edema, pulses present Dx/Plan (1) Acute respiratory failure Code(s): J96.00 - ACUTE RESPIRATORY FAILURE, UNSP W HYPOXIA OR HYPERCAPNIA Status: Acute Qualifiers: Respiratory failure complication: hypoxia and hypercapnia Qualified Code(s) : J96.01 - Acute respiratory failure with hypoxia; J96.02 - Acute respiratory failure with hypercapnia (2) Status epilepticus Code(s): G40.901 - EPILEPSY, UNSP, NOT INTRACTABLE, WITH STATUS EPILEPTICUS Status: Acute (3) Diabetes mellitus type 2, uncontrolled Code(s): E11.65 - TYPE 2 DIABETES MELLITUS WITH HYPERGLYCEMIA Status: Chronic (4) Morbid obesity with BMI of 40.0-44.9, adult Code(s): E66.01 - MORBID (SEVERE) OBESITY DUE TO EXCESS CALORIES; Z68.41 - BODY MASS INDEX (BMI) 40.0-44.9, ADULT Status: Chronic (5) Other issues per previous notes Status: Chronic (6) Aspiration pneumonia Code(s): J69.0 - PNEUMONITIS DUE TO INHALATION OF FOOD AND VOMIT Status: Suspected (7) NSTEMI (non-ST elevated myocardial infarction) Code(s): I21.4 - NON-ST ELEVATION (NSTEMI) MYOCARDIAL INFARCTION Status: Suspected Comment: with NSVT - Plan plan discussed w/ family, 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
[2018-04-17] MEDS: Atorvastatin Calcium 40 MG TAB PO SCH (20:57)
[2018-04-18] MEDS: HumaLOG 300 UNITS/3 ML VIAL SC PRN ×3 (00:18→16:25)
[2018-04-18] MEDS: Haloperidol Lactate 5 MG/ML VIAL IM SCH ×6 (00:40→20:23)
[2018-04-18] MEDS: Lorazepam 2 MG/ML VIAL SLOW IVP SCH ×6 (00:40→20:24)
[2018-04-18] MEDS: Metoclopramide HCl 10 MG/2 ML VIAL IVP SCH ×3 (00:40→14:48)
[2018-04-18] MEDS: Propofol 1,000 MG/100 ML VIAL IV PRN ×7 (02:53→21:21)
[2018-04-18 04:42] LABS: Anion Gap 15 mmol/L (10-20); BUN (Urea Nitrogen) 34 mg/dL (8.9-20.6); Calc. Creatinine Clearance 201 mL/min (70-130); Calcium 9.2 mg/dL (7.8-10.44); Carbon Dioxide 34 mmol/L (22-29); Chloride 97 mmol/L (98-107); Estimated GFR-MDRD Greater than 90; Glucose 152 mg/dL (70-105); Potassium 4.2 mmol/L (3.5-5.1); Sodium 142 mmol/L (136-145)
[2018-04-18] MEDS: Furosemide 40 MG/4 ML VIAL SLOW IVP SCH (05:08)
[2018-04-18] MEDS: Meropenem 2 GM in Sodium Chloride 0.9% 100 ML IVPB SCH ×3 (05:12→21:22)
[2018-04-18] MEDS: fentaNYL Citrate/PF 2,000 MCG in Sodium Chloride 0.9% 60 ML IV SCH ×2 (05:13→15:23)
[2018-04-18 05:16] LABS: Hemoglobin 14.9 g/dL (14.0-18.0); Mean Corpuscular HGB CONC 32.9 g/dL (32.0-36.0); Mean Corpuscular Hemoglobin 31.1 pg (27.0-31.0); Mean Corpuscular Volume 94.3 fL (78.0-98.0); Mean Platelet Volume 7.1 fL (7.4-10.4); Platelet Count 303 thou/uL (130-400); RBC Distribution Width 12.8 % (11.5-14.5); Red Blood Cell (RBC) Count 4.81 mill/uL (4.70-6.10); White Blood Cell (WBC) Count 16.9 thou/uL (4.8-10.8)
[2018-04-18 05:20] LABS: Band 10 % (5-11); Lymphocytes 15 % (21-51); MDiff Complete? YES; Monocytes 4 % (0-10); Myelocyte 1 % (0-0); Neutrophil 70 % (42-75)
[2018-04-18] MEDS: Levothyroxine 100 MCG SDV IVP SCH (06:12)
[2018-04-18 06:35] LABS: Actual Bicarbonate (HCO3a) 34.7 mEq/L (22-28); Base Excess (BEa) 9.1 mEq/L (-2.0 to +3.0); CO2 Tension 50.5 mmHg (35.0-45.0); Calcium, Ionized 1.16 mmol/L (1.12-1.30); Carboxyhemoglobin (COHb) 0.6 gm% (0.0-3.0); Hemoglobin (Hb) 15.2 g/dL (14.0-18.0); O2 Tension (PaO2) 76.3 mmHg (80.0-100.0); Potassium - ABG Lab 3.78 mmol/L (3.70-5.30); pH, Arterial 7.46 (7.35-7.45)
[2018-04-18 06:36] LABS: ALV-art Gradient 252.725 (0-20); Puncture Site LRA
--- NOTE | 2018-04-18 07:54 | RAD ---
PORTABLE CHEST: HISTORY: Respiratory distress. COMPARISON: Prior day's exam. FINDINGS: Endotracheal and NG tubes remain in satisfactory position. There has been a definite improvement in the interstitial alveolar lung changes suggesting resolving edema. IMPRESSION: Resolving pulmonary edema change. POS: [facility]
--- NOTE | 2018-04-18 09:11 | PDOC.PN ---
- Subjective Encounter Start Date: 04/18/18 Encounter Start Time: 09:09 Subjective: intubated , sedated - Objective MAR Reviewed: Yes Vital Signs & Weight: Vital Signs (12 hours) Temp Pulse Resp BP Pulse Ox 04/18/18 06:26 68 101/61 04/18/18 06:24 68 15 92 L 04/18/18 06:00 16 04/18/18 04:00 98.7 F 15 04/18/18 02:17 70 100/58 L 04/18/18 02:00 14 04/18/18 00:00 98.9 F 14 04/17/18 22:21 74 94/57 L 04/17/18 22:00 15 Weight Admit Weight 288 lb 2.307 oz Weight 279 lb 3.2 oz Most Recent Monitor Data Heart Rate from ECG 70 NIBP 101/61 NIBP BP-Mean 74 Respiration from ECG 12 SpO2 93 I&O: 04/17/18 04/18/18 04/19/18 06:59 06:59 06:59 Intake Total 2986 2324 Output Total 6715 5746 Balance -7573 -4218 Result Diagrams: 04/18/18 04:15 04/18/18 04:15 Additional Labs: Accuchecks 04/18/18 04/18/18 04/17/18 04:14 00:17 20:28 POC Glucose 143 H 184 H 161 H 04/17/18 04/17/18 15:31 12:13 POC Glucose 200 H 130 H Radiology Reviewed by me: Yes (cxr- ET tube, ncardiomegaly, marked resolution of pelmonary edema) Phys Exam - Physical Examination Neck: no JVD Respiratory: no wheezing, no rales clear Cardiovascular: RRR, no significant murmur Gastrointestinal: soft, non-tender, positive bowel sounds Musculoskeletal: no edema Neurological: non-focal Dx/Plan (1) Acute respiratory failure Code(s): J96.00 - ACUTE RESPIRATORY FAILURE, UNSP W HYPOXIA OR HYPERCAPNIA Status: Acute Qualifiers: Respiratory failure complication: hypoxia and hypercapnia Qualified Code(s) : J96.01 - Acute respiratory failure with hypoxia; J96.02 - Acute respiratory failure with hypercapnia (2) Status epilepticus Code(s): G40.901 - EPILEPSY, UNSP, NOT INTRACTABLE, WITH STATUS EPILEPTICUS Status: Acute (3) Diabetes mellitus type 2, uncontrolled Code(s): E11.65 - TYPE 2 DIABETES MELLITUS WITH HYPERGLYCEMIA Status: Chronic Qualifiers: Glycemic state: with hyperglycemia Qualified Code(s): E11.65 - Type 2 diabetes mellitus with hyperglycemia (4) Aspiration pneumonia Code(s): J69.0 - PNEUMONITIS DUE TO INHALATION OF FOOD AND VOMIT Status: Suspected Qualifiers: Aspiration pneumonia type: due to vomit Laterality: bilateral Lung location: unspecified part of lung Qualified Code(s): J69.0 - Pneumonitis due to inhalation of food and vomit (5) NSTEMI (non-ST elevated myocardial infarction) Code(s): I21.4 - NON-ST ELEVATION (NSTEMI) MYOCARDIAL INFARCTION Status: Suspected Comment: with NSVT (6) Cardiomyopathy Code(s): I42.9 - CARDIOMYOPATHY, UNSPECIFIED Status: Acute Qualifiers: Cardiomyopathy type: unspecified Qualified Code(s): I42.9 - Cardiomyopathy , unspecified - Plan vent per instructional manager -: cont asa,coreg, lisinopril -: cont keppra -: discuss with instructional manager * .
[2018-04-18] MEDS: Carvedilol 6.25 MG TAB PO SCH ×2 (09:18→17:36)
[2018-04-18] MEDS: Aspirin Chewable 81 MG TAB PO SCH (09:18)
[2018-04-18] MEDS: Famotidine/PF 20 mg/2ml Vial SLOW IVP SCH ×2 (09:19→20:24)
[2018-04-18] MEDS: Lisinopril 5 MG TAB PO SCH ×2 (09:19→20:24)
[2018-04-18] MEDS: levETIRAcetam In NaCl (Iso-Os) 1,000 MG in Premix Bag 1 BAG IVPB SCH ×2 (09:20→20:22)
--- NOTE | 2018-04-18 09:47 | PRG ---
DATE OF SERVICE: 04/18/2018 PULMONARY/CRITICAL CARE PRESENTATION TIME SPENT: 35 minutes critical time. SUBJECTIVE: The patient remains intubated on mechanical ventilation. He will wake up and follow up appropriately. OBJECTIVE: VITAL SIGNS: Temperature 98.7, pulse 70, blood pressure 101/61, currently on a Precedex drip, propofol and fentanyl. A 24-hour intake was 2324 and output 5727. Weight 279 pounds. HEENT: Unremarkable. NECK: No JVD. LUNGS: Clear anteriorly. CARDIAC: S1 and S2, regular. ABDOMEN: Soft, obese, nontender. EXTREMITIES: No edema. LABORATORY DATA: Sodium 142, potassium 4.2, chloride 97, CO2 of 34, BUN 34, creatinine 0.8, glucose 152. PH 7.46, pCO2 of 50, pO2 of 76 on SIMV rate 14, tidal volume of 500, PEEP 12, pressure support 10, FiO2 of 55%. White blood cell count 16.9, hematocrit 45.3, and platelet count 303. Chest x-ray shows no significant change. ASSESSMENT: 1. Continued respiratory failure, requiring mechanical ventilation. 2. Developing prerenal azotemia. 3. Congestive heart failure. 4. Nonsustained ventricular tachycardia. 5. Non-Q-wave myocardial infarction. 6. Seizure at the time of admission. 7. Mild rhabdomyolysis at the time of admission. PLAN: I will go ahead and change him over to pressure control ventilation as he seemed to want more tidal volume than what we are giving him. I will try to cut his respiratory rate today. I will hold his diuretics because of developing prerenal azotemia. He will be checked throughout the day. Job ID: [id number]
--- NOTE | 2018-04-18 20:09 | PRG ---
DATE OF SERVICE: 04/18/2018 SUBJECTIVE: Status is unchanged. He continues to be intubated and sedated. Family has not been seen at bedside. REVIEW OF SYSTEMS: Not obtainable. OBJECTIVE: VITAL SIGNS: Blood pressure 106/61, pulse 67, and temperature afebrile. LUNGS: Clear to auscultation. HEART: Regular rate and rhythm. ABDOMEN: Soft, nontender, and nondistended. EXTREMITIES: 1+ pitting edema. PERTINENT LABS: Hemoglobin 14.9 and white blood cell count 16.9. IMPRESSION: 1. Respiratory failure. 2. Seizure. 3. Cardiomyopathy of unknown etiology. 4. Nonsustained ventricular tachycardia. RECOMMENDATIONS: At this point, he is currently on carvedilol at 12.5 mg p.o. b.i.d. in addition to atorvastatin and aspirin. He is also on Zestril per NG tube. From a CV status, I have no further recommendations. His cardiomyopathy is unknown. This may be related to his recent illness, may be related to underlying coronary artery disease. Otherwise, I have no further recommendations. Job ID: [id number]
[2018-04-18] MEDS: Atorvastatin Calcium 40 MG TAB PO SCH (20:24)
[2018-04-19] MEDS: Propofol 1,000 MG/100 ML VIAL IV PRN ×7 (00:25→18:21)
[2018-04-19] MEDS: fentaNYL Citrate/PF 2,000 MCG in Sodium Chloride 0.9% 60 ML IV SCH ×3 (01:45→22:59)
[2018-04-19] MEDS: Haloperidol Lactate 5 MG/ML VIAL IM SCH ×6 (02:02→21:03)
[2018-04-19] MEDS: Lorazepam 2 MG/ML VIAL SLOW IVP SCH ×6 (02:02→21:03)
[2018-04-19 05:16] LABS: Anion Gap 18 mmol/L (10-20); BUN (Urea Nitrogen) 36 mg/dL (8.9-20.6); Calc. Creatinine Clearance 178 mL/min (70-130); Calcium 8.8 mg/dL (7.8-10.44); Carbon Dioxide 30 mmol/L (22-29); Chloride 98 mmol/L (98-107); Estimated GFR-MDRD 88; Glucose 141 mg/dL (70-105); Potassium 4.2 mmol/L (3.5-5.1); Sodium 142 mmol/L (136-145)
[2018-04-19 05:21] LABS: Hemoglobin 13.9 g/dL (14.0-18.0); Mean Corpuscular HGB CONC 32.5 g/dL (32.0-36.0); Mean Corpuscular Hemoglobin 30.8 pg (27.0-31.0); Mean Corpuscular Volume 94.8 fL (78.0-98.0); Mean Platelet Volume 7.6 fL (7.4-10.4); Platelet Count 270 thou/uL (130-400); RBC Distribution Width 12.8 % (11.5-14.5); White Blood Cell (WBC) Count 16.7 thou/uL (4.8-10.8)
[2018-04-19] MEDS: Meropenem 2 GM in Sodium Chloride 0.9% 100 ML IVPB SCH (05:23)
[2018-04-19] MEDS: Levothyroxine 100 MCG SDV IVP SCH (05:24)
[2018-04-19 05:41] LABS: Band 8 % (5-11); Lymphocytes 14 % (21-51); MDiff Complete? YES; Monocytes 4 % (0-10); Neutrophil 74 % (42-75)
[2018-04-19 07:36] LABS: Actual Bicarbonate (HCO3a) 33.4 mEq/L (22-28); Base Excess (BEa) 9.9 mEq/L (-2.0 to +3.0); CO2 Tension 40.7 mmHg (35.0-45.0); Calcium, Ionized 1.15 mmol/L (1.12-1.30); Carboxyhemoglobin (COHb) 0.6 gm% (0.0-3.0); Hemoglobin (Hb) 14.2 g/dL (14.0-18.0); O2 Tension (PaO2) 61.5 mmHg (80.0-100.0); Potassium - ABG Lab 3.79 mmol/L (3.70-5.30); pH, Arterial 7.53 (7.35-7.45)
[2018-04-19 07:37] LABS: Puncture Site LR
[2018-04-19 07:38] LABS: ALV-art Gradient 279.775 (0-20)
[2018-04-19] MEDS: Carvedilol 6.25 MG TAB PO SCH ×2 (08:00→17:59)
--- NOTE | 2018-04-19 08:51 | PRG ---
DATE OF SERVICE: 04/19/2018 SUBJECTIVE: The patient remains intubated on mechanical ventilation. There are no acute changes overnight that I can tell. OBJECTIVE: VITAL SIGNS: On exam, his temperature is 98.9, pulse is 55, blood pressure is 107/69. He is currently on Precedex, propofol and fentanyl. His 24-hour intake was 2389, output 3430. Weight currently 277 pounds. NEUROLOGICAL: He will follow commands for me. HEENT: Unremarkable. NECK: No JVD. LUNGS: Fairly clear. CARDIAC: S1, S2. Regular. ABDOMEN: Soft. EXTREMITIES: No profound edema. LABORATORY DATA: Sodium 142, potassium 4.2, chloride 98, CO2 of 30, BUN 36, creatinine 0.9, glucose 141. PH of 7.53, pCO2 of 40, pO2 of 61 on pressure control, SIMV with a rate of 12, FiO2 55%, inspiratory pressure of 16, PEEP of 12. White blood cell count of 16.7, hematocrit of 42.6, and platelet count of 270. ASSESSMENT: 1. Acute respiratory failure requiring mechanical ventilation. 2. Status post seizure activity. 3. Mild rhabdomyolysis has subsided. 4. Nonsustained ventricular tachycardia. 5. Cardiomyopathy. PLAN: I will try to dial down his ventilator setting some. We will stop his antibiotic since he has had 7 days. I anticipate him needing ventilatory support for at least another couple of days. Job ID: [id number]
--- NOTE | 2018-04-19 09:37 | RAD ---
CHEST ONE VIEW: History: Dyspnea. Follow up. Comparison: 01-16-19 FINDINGS: Cardiac silhouette is magnified by projection. Pulmonary vasculature is slightly more engorged with p atchy bibasilar infiltrate and right upper lobe parenchymal opacity which is partially obscured by th e overlying osseous structures. Mediastinum is midline. Lines and tubes appear unchanged in position. No evidence of pneumothorax. IMPRESSION: Overall stable radiographic appearance of the chest. POS: [facility]
--- NOTE | 2018-04-19 09:47 | PDOC.PN ---
- Subjective Encounter Start Date: 04/19/18 Encounter Start Time: 09:45 Subjective: intubated, sedated - Objective MAR Reviewed: Yes Vital Signs & Weight: Vital Signs (12 hours) Temp Pulse Resp BP Pulse Ox 04/19/18 07:26 56 L 107/69 04/19/18 07:24 55 L 12 98 04/19/18 06:00 12 04/19/18 04:00 98.9 F 12 04/19/18 02:28 63 107/64 04/19/18 02:00 12 04/19/18 00:00 98.7 F 12 04/18/18 22:19 66 112/64 04/18/18 22:00 12 Weight Admit Weight 288 lb 2.307 oz Weight 277 lb 11.2 oz Most Recent Monitor Data Heart Rate from ECG 55 NIBP 107/69 NIBP BP-Mean 81 Respiration from ECG 12 SpO2 98 I&O: 04/18/18 04/19/18 04/20/18 06:59 06:59 06:59 Intake Total 2324 2389.6 Output Total 5727 3430 150 Balance -3403 -1040.4 -150 Result Diagrams: 04/19/18 04:15 04/19/18 04:15 Additional Labs: Accuchecks 04/19/18 04/19/18 04/18/18 03:59 00:13 21:24 POC Glucose 138 H 174 H 119 H 04/18/18 04/18/18 16:19 12:05 POC Glucose 175 H 181 H Radiology Reviewed by me: Yes (cxr- ET tube, NGT, stable lung myers) Phys Exam - Physical Examination Neck: no JVD Respiratory: clear to auscultation bilateral Cardiovascular: RRR, no significant murmur Gastrointestinal: soft, positive bowel sounds Musculoskeletal: edema present Neurological: non-focal Dx/Plan (1) Acute respiratory failure Code(s): J96.00 - ACUTE RESPIRATORY FAILURE, UNSP W HYPOXIA OR HYPERCAPNIA Status: Acute Qualifiers: Respiratory failure complication: hypoxia and hypercapnia Qualified Code(s) : J96.01 - Acute respiratory failure with hypoxia; J96.02 - Acute respiratory failure with hypercapnia (2) Status epilepticus Code(s): G40.901 - EPILEPSY, UNSP, NOT INTRACTABLE, WITH STATUS EPILEPTICUS Status: Acute (3) Diabetes mellitus type 2, uncontrolled Code(s): E11.65 - TYPE 2 DIABETES MELLITUS WITH HYPERGLYCEMIA Status: Chronic Qualifiers: Glycemic state: with hyperglycemia Qualified Code(s): E11.65 - Type 2 diabetes mellitus with hyperglycemia (4) Aspiration pneumonia Code(s): J69.0 - PNEUMONITIS DUE TO INHALATION OF FOOD AND VOMIT Status: Suspected Qualifiers: Aspiration pneumonia type: due to vomit Laterality: bilateral Lung location: unspecified part of lung Qualified Code(s): J69.0 - Pneumonitis due to inhalation of food and vomit (5) NSTEMI (non-ST elevated myocardial infarction) Code(s): I21.4 - NON-ST ELEVATION (NSTEMI) MYOCARDIAL INFARCTION Status: Suspected Comment: with NSVT (6) Cardiomyopathy Code(s): I42.9 - CARDIOMYOPATHY, UNSPECIFIED Status: Acute Qualifiers: Cardiomyopathy type: unspecified Qualified Code(s): I42.9 - Cardiomyopathy , unspecified - Plan vent per tubular riveter -: on iv antibx-levaquin,meropenem -: on iv antiseizure meds -: cont asa, statin, b-vicente, hydrazine -: discuss with tubular riveter * .
[2018-04-19] MEDS: levETIRAcetam In NaCl (Iso-Os) 1,000 MG in Premix Bag 1 BAG IVPB SCH (10:02)
[2018-04-19] MEDS: Aspirin Chewable 81 MG TAB PO SCH (10:02)
[2018-04-19] MEDS: Lisinopril 5 MG TAB PO SCH ×2 (10:02→21:04)
[2018-04-19] MEDS: Metoclopramide HCl 10 MG/2 ML VIAL IVP SCH ×3 (10:03→21:03)
[2018-04-19] MEDS: Famotidine/PF 20 mg/2ml Vial SLOW IVP SCH ×2 (10:03→21:03)
[2018-04-19] MEDS: levETIRAcetam 500 mg/5 ml Oral Solution PER TUBE SCH (21:02)
[2018-04-19] MEDS: Atorvastatin Calcium 40 MG TAB PO SCH (21:03)
[2018-04-19] MEDS: Enoxaparin Sodium 40 MG/0.4 ML SYRINGE SC SCH (21:04)
[2018-04-20] MEDS: Haloperidol Lactate 5 MG/ML VIAL IM SCH ×6 (00:54→20:27)
[2018-04-20] MEDS: Propofol 1,000 MG/100 ML VIAL IV PRN ×7 (00:54→20:26)
[2018-04-20] MEDS: Lorazepam 2 MG/ML VIAL SLOW IVP SCH ×6 (00:54→20:27)
[2018-04-20] MEDS: Metoclopramide HCl 10 MG/2 ML VIAL IVP SCH ×4 (03:05→20:15)
[2018-04-20 05:32] LABS: Anion Gap 14 mmol/L (10-20); BUN (Urea Nitrogen) 30 mg/dL (8.9-20.6); Calc. Creatinine Clearance 200 mL/min (70-130); Calcium 8.6 mg/dL (7.8-10.44); Carbon Dioxide 28 mmol/L (22-29); Chloride 103 mmol/L (98-107); Estimated GFR-MDRD Greater than 90; Glucose 124 mg/dL (70-105); Potassium 4.2 mmol/L (3.5-5.1); Sodium 141 mmol/L (136-145)
[2018-04-20 05:58] LABS: Band 4 % (5-11); Hemoglobin 13.8 g/dL (14.0-18.0); Lymphocytes 15 % (21-51); MDiff Complete? YES; Mean Corpuscular HGB CONC 33.5 g/dL (32.0-36.0); Mean Corpuscular Hemoglobin 31.7 pg (27.0-31.0); Mean Corpuscular Volume 94.6 fL (78.0-98.0); Mean Platelet Volume 7.3 fL (7.4-10.4); Neutrophil 81 % (42-75); Platelet Count 275 thou/uL (130-400); RBC Distribution Width 12.6 % (11.5-14.5); Red Blood Cell (RBC) Count 4.35 mill/uL (4.70-6.10); White Blood Cell (WBC) Count 15.7 thou/uL (4.8-10.8)
[2018-04-20] MEDS: Levothyroxine 100 MCG SDV IVP SCH (06:03)
[2018-04-20] MEDS ORDERED: Fentanyl BOLUS 250 ML IVPB PRN ×2 (06:50→09:15)
[2018-04-20] MEDS ORDERED: Morphine 2 MG/ML SYRINGE SLOW IVP PRN ×2 (06:51→09:15)
[2018-04-20] MEDS ORDERED: fentaNYL Citrate/PF 2,000 MCG in Sodium Chloride 0.9% 60 ML IV SCH (07:00)
[2018-04-20 07:35] LABS: Actual Bicarbonate (HCO3a) 33.6 mEq/L (22-28); Base Excess (BEa) 7.4 mEq/L (-2.0 to +3.0); CO2 Tension 53.3 mmHg (35.0-45.0); Calcium, Ionized 1.15 mmol/L (1.12-1.30); Hemoglobin (Hb) 14.1 g/dL (14.0-18.0); O2 Tension (PaO2) 86.6 mmHg (80.0-100.0); Potassium - ABG Lab 4.05 mmol/L (3.70-5.30); pH, Arterial 7.42 (7.35-7.45)
[2018-04-20 07:39] LABS: Puncture Site LR
[2018-04-20 07:41] LABS: ALV-art Gradient 167.625 (0-20)
--- NOTE | 2018-04-20 08:15 | RAD ---
CHEST 1 VIEW: HISTORY: Dyspnea. Followup. COMPARISON: 04/19/2018. FINDINGS: Cardiac silhouette is magnified by projection. Pulmonary vasculature is slightly more engorged than on the prior study with increasing bibasilar infiltrates, obscuring each hemidiaphragm. Mediastinum is midline. Lines and tubes are unchanged in position. cardiac monitor technician leads overlie the chest. IMPRESSION: Slight interval radiographic worsening of pulmonary vascular congestion and patchy bibasilar infiltra te. POS: [facility]
[2018-04-20] MEDS ORDERED: DC Sedation Protocol FS ONE (08:34)
--- NOTE | 2018-04-20 08:56 | PDOC.PN ---
- Subjective Encounter Start Date: 04/20/18 Encounter Start Time: 08:54 Subjective: sedated, intubated - Objective MAR Reviewed: Yes Vital Signs & Weight: Vital Signs (12 hours) Temp Pulse Resp BP Pulse Ox 04/20/18 08:00 12 04/20/18 07:20 66 114/66 04/20/18 07:19 67 16 100 04/20/18 07:00 99.5 F 04/20/18 06:00 12 04/20/18 04:00 99.1 F 12 04/20/18 02:17 67 111/66 04/20/18 02:00 12 04/20/18 00:00 99.2 F 12 04/19/18 22:00 12 04/19/18 21:59 63 105/65 04/19/18 21:04 69 105/65 Weight Admit Weight 288 lb 2.307 oz Weight 279 lb 4.8 oz Most Recent Monitor Data Heart Rate from ECG 77 NIBP 103/65 NIBP BP-Mean 77 Respiration from ECG 12 SpO2 99 I&O: 04/19/18 04/20/18 04/21/18 06:59 06:59 06:59 Intake Total 2389.6 2481.0 Output Total 3430 2771 225 Balance -1040.4 -290.0 -225 Result Diagrams: 04/20/18 05:06 04/20/18 05:06 Additional Labs: Accuchecks 04/20/18 04/20/18 04/19/18 04:52 00:13 16:16 POC Glucose 123 H 171 H 124 H 04/19/18 13:33 POC Glucose 111 H Radiology Reviewed by me: Yes (cxr-ET tube- adverse changes in lower lung myers ) Phys Exam - Physical Examination Neck: no JVD clear ant, difficult to get adequate post exam Gastrointestinal: soft, positive bowel sounds Musculoskeletal: edema present Dx/Plan (1) Acute respiratory failure Code(s): J96.00 - ACUTE RESPIRATORY FAILURE, UNSP W HYPOXIA OR HYPERCAPNIA Status: Acute Qualifiers: Respiratory failure complication: hypoxia and hypercapnia Qualified Code(s) : J96.01 - Acute respiratory failure with hypoxia; J96.02 - Acute respiratory failure with hypercapnia (2) Status epilepticus Code(s): G40.901 - EPILEPSY, UNSP, NOT INTRACTABLE, WITH STATUS EPILEPTICUS Status: Acute (3) Diabetes mellitus type 2, uncontrolled Code(s): E11.65 - TYPE 2 DIABETES MELLITUS WITH HYPERGLYCEMIA Status: Chronic Qualifiers: Glycemic state: with hyperglycemia Qualified Code(s): E11.65 - Type 2 diabetes mellitus with hyperglycemia (4) Aspiration pneumonia Code(s): J69.0 - PNEUMONITIS DUE TO INHALATION OF FOOD AND VOMIT Status: Suspected Qualifiers: Aspiration pneumonia type: due to vomit Laterality: bilateral Lung location: unspecified part of lung Qualified Code(s): J69.0 - Pneumonitis due to inhalation of food and vomit (5) NSTEMI (non-ST elevated myocardial infarction) Code(s): I21.4 - NON-ST ELEVATION (NSTEMI) MYOCARDIAL INFARCTION Status: Suspected Comment: with NSVT (6) Cardiomyopathy Code(s): I42.9 - CARDIOMYOPATHY, UNSPECIFIED Status: Acute Qualifiers: Cardiomyopathy type: unspecified Qualified Code(s): I42.9 - Cardiomyopathy , unspecified - Plan cont vent, cont antibx -: cont anticonvulsant -: cont accu/ss/LA insulin -: discussed with Dr Leblanc * .
[2018-04-20] MEDS ORDERED: Ventilator Sedation Protocol 1 EACH FS SCH (09:00)
--- NOTE | 2018-04-20 09:02 | PRG ---
DATE OF SERVICE: 04/20/2018 TIME SPENT: 35 minutes of critical care time. SUBJECTIVE: The patient remains intubated on mechanical ventilation. There are no acute changes overnight. OBJECTIVE: VITAL SIGNS: Temperature is 99.5, pulse 77, blood pressure 103/65. A 24-hour intake 2481 and output 2771. Weight 279 pounds. He will shake his head, nod his head to commands. HEENT: Unremarkable. NECK: No JVD. CHEST: Clear. CARDIAC: S1, S2. Regular. ABDOMEN: Soft. EXTREMITIES: Edematous. LABORATORY DATA: Sodium 141, potassium 4.3, chloride 103, CO2 of 28, BUN 30, creatinine 0.8 glucose 124. PH 7.43, pCO2 of 53, and pO2 of 86, that is on SIMV with pressure control, rate 12, inspiratory pressure 14, PEEP 8, pressure support 10, FiO2 of 45%. White blood cell count 15.7, hematocrit 41.1, and platelet count 275. IMAGING STUDIES: X-ray shows bilateral effusions. ASSESSMENT: 1. Acute respiratory failure requiring mechanical ventilation. 2. Congestive heart failure/pulmonary edema. 3. Status post seizure activity. 4. Mild rhabdomyolysis, which is resolved. 5. Nonsustained ventricular tachycardia. PLAN: Decrease PEEP, decrease FiO2, and start acetazolamide for diuresis. The hope is to try spontaneous breathing trial by tomorrow. Job ID: [id number]
[2018-04-20] MEDS: levETIRAcetam 500 mg/5 ml Oral Solution PER TUBE SCH ×2 (09:14→20:27)
[2018-04-20] MEDS: acetaZOLAMIDE Sodium 500 mg Vial IVP SCH ×2 (09:14→20:14)
[2018-04-20] MEDS: Carvedilol 6.25 MG TAB PO SCH ×2 (09:14→16:45)
[2018-04-20] MEDS ORDERED: Propofol BOLUS 1,000 MG/100 ML VIAL IV PRN (09:15)
[2018-04-20] MEDS: Famotidine 20 MG TAB PO SCH ×2 (09:15→20:15)
[2018-04-20] MEDS ORDERED: Lorazepam 2 MG/ML VIAL SLOW IVP PRN (09:15)
[2018-04-20] MEDS: Lisinopril 5 MG TAB PO SCH ×2 (09:16→20:15)
[2018-04-20] MEDS: Aspirin Chewable 81 MG TAB PO SCH (09:17)
[2018-04-20] MEDS ORDERED: Furosemide 40 MG/4 ML VIAL SLOW IVP SCH (14:00)
--- NOTE | 2018-04-20 14:03 | PRG ---
DATE OF SERVICE: 04/20/2018 SUBJECTIVE: Mr. Reyes's status is unchanged. No significant dysrhythmias overnight. OBJECTIVE: VITAL SIGNS: Blood pressure 118/66, pulse 63, and temperature 99.5. GENERAL: Intubated, sedated. LUNGS: Clear to auscultation. HEART: Regular rate and rhythm. ABDOMEN: Soft, obese, nontender, and nondistended. EXTREMITIES: 2+ pitting edema. LABORATORY DATA: Pertinent labs; hemoglobin 13.5. Creatinine 0.82. IMPRESSION: 1. Cardiomyopathy of unknown etiology. 2. Seizure. 3. Respiratory failure. 4. Nonsustained ventricular tachycardia. RECOMMENDATIONS: From a CV standpoint, I would recommend conservative approach. At this point, he would not benefit from a more aggressive CV approach. He is currently on CV medications including carvedilol, YARELY inhibitor therapy, aspirin, and statin. Unless his clinical status markedly improved, we will continue with the current approach. Otherwise, I have no further recommendations. We will follow peripherally. Job ID: [id number]
[2018-04-20] MEDS: fentaNYL Citrate/PF 2,000 MCG in Sodium Chloride 0.9% 60 ML IV SCH (19:09)
[2018-04-20] MEDS: Enoxaparin Sodium 40 MG/0.4 ML SYRINGE SC SCH (20:14)
[2018-04-20] MEDS: Atorvastatin Calcium 40 MG TAB PO SCH (20:16)
[2018-04-21] MEDS: Lorazepam 2 MG/ML VIAL SLOW IVP SCH ×2 (00:30→04:53)
[2018-04-21] MEDS: Haloperidol Lactate 5 MG/ML VIAL IM SCH ×2 (00:30→04:53)
[2018-04-21] MEDS: Propofol 1,000 MG/100 ML VIAL IV PRN ×2 (00:30→04:35)
[2018-04-21] MEDS: Metoclopramide HCl 10 MG/2 ML VIAL IVP SCH ×4 (02:55→20:43)
[2018-04-21] MEDS: Levothyroxine 100 MCG SDV IVP SCH (05:01)
[2018-04-21] MEDS: fentaNYL Citrate/PF 2,000 MCG in Sodium Chloride 0.9% 60 ML IV SCH (05:08)
[2018-04-21 05:10] LABS: Hemoglobin 14.3 g/dL (14.0-18.0); Lymphocytes 8 % (21-51); MDiff Complete? YES; Mean Corpuscular HGB CONC 33.1 g/dL (32.0-36.0); Mean Corpuscular Hemoglobin 31.4 pg (27.0-31.0); Mean Corpuscular Volume 94.9 fL (78.0-98.0); Mean Platelet Volume 7.4 fL (7.4-10.4); Neutrophil 90 % (42-75); Platelet Count 289 thou/uL (130-400); Platelet Morphology Comment Appears Adequate; RBC Distribution Width 12.5 % (11.5-14.5); RBC Morphology Normal; Reactive Lymphocytes 2 % (0-10); Red Blood Cell (RBC) Count 4.54 mill/uL (4.70-6.10); White Blood Cell (WBC) Count 17.2 thou/uL (4.8-10.8)
[2018-04-21 05:14] LABS: Anion Gap 13 mmol/L (10-20); BUN (Urea Nitrogen) 30 mg/dL (8.9-20.6); Calc. Creatinine Clearance 186 mL/min (70-130); Calcium 9.1 mg/dL (7.8-10.44); Carbon Dioxide 24 mmol/L (22-29); Chloride 105 mmol/L (98-107); Estimated GFR-MDRD Greater than 90; Glucose 160 mg/dL (70-105); Potassium 4.3 mmol/L (3.5-5.1); Sodium 138 mmol/L (136-145)
[2018-04-21 07:59] LABS: Actual Bicarbonate (HCO3a) 27.8 mEq/L (22-28); Base Excess (BEa) 1.7 mEq/L (-2.0 to +3.0); CO2 Tension 49.3 mmHg (35.0-45.0); Calcium, Ionized 1.25 mmol/L (1.12-1.30); Hemoglobin (Hb) 14.4 g/dL (14.0-18.0); O2 Tension (PaO2) 76.8 mmHg (80.0-100.0); Potassium - ABG Lab 4.14 mmol/L (3.70-5.30); pH, Arterial 7.37 (7.35-7.45)
[2018-04-21] MEDS ORDERED: Haloperidol Lactate 5 MG/ML VIAL IM PRN (08:17)
[2018-04-21] MEDS ORDERED: Lorazepam 2 MG/ML VIAL SLOW IVP PRN (08:17)
--- NOTE | 2018-04-21 08:26 | PRG ---
DATE OF SERVICE: 04/21/2018 PULMONARY/CRITICAL CARE PROGRESS NOTE. TIME SPENT: This is 35 minutes of critical care time. SUBJECTIVE: Mr. Reyes remains intubated on mechanical ventilation. The nurses tell me he becomes extremely agitated when sedation is weaned. OBJECTIVE: VITAL SIGNS: On exam, temperature is 99.4 with a T-max of 100.0, pulse 60, and blood pressure 95/61. 24-hour intake 2163, output 4290. HEENT: Unremarkable. NECK: Without adenopathy or JVD. LUNGS: Clear anteriorly. CARDIOVASCULAR: S1 and S2, regular. ABDOMEN: Soft, obese, nontender, and nondistended. EXTREMITIES: No clubbing, cyanosis, or edema. LABORATORY DATA: White blood cell count 17.2, hemoglobin 14, hematocrit 43, and platelet count 289. ABG pending. Sodium 138, potassium 4.3, chloride 105, CO2 of 24, BUN 30, creatinine 0.8, and glucose 160. Chest x-ray shows improvement in bilateral pulmonary edema compared to film from the previous day. ASSESSMENT: 1. Acute hypoxic respiratory failure, requiring mechanical ventilation. 2. Diastolic cardiac dysfunction. 3. Status post seizure activity. 4. Mild rhabdomyolysis. 5. Nonsustained ventricular tachycardia. PLAN: We will try him on spontaneous breathing today. I am awaiting results from an arterial blood gas. If that looks good and the decision is made to extubate, then we will probably have to time it such as sedation is stopped and he is almost immediately extubated. Job ID: [id number]
[2018-04-21] MEDS: levETIRAcetam 500 mg/5 ml Oral Solution PER TUBE SCH ×2 (08:53→20:43)
[2018-04-21] MEDS: Aspirin Chewable 81 MG TAB PO SCH (08:56)
[2018-04-21] MEDS: Lisinopril 5 MG TAB PO SCH ×2 (08:56→20:43)
[2018-04-21] MEDS: Famotidine 20 MG TAB PO SCH ×2 (08:56→20:43)
[2018-04-21] MEDS: Carvedilol 6.25 MG TAB PO SCH ×2 (08:56→16:34)
[2018-04-21] MEDS: acetaZOLAMIDE Sodium 500 mg Vial IVP SCH ×2 (08:57→20:42)
--- NOTE | 2018-04-21 09:47 | RAD ---
PORTABLE CHEST: HISTORY: CCU followup. Shortness of breath. COMPARISON: 04/20/2018. FINDINGS: ET and NG tube remain in place. There continues to be opacification of the lung bases suggesting sma ll bilateral effusions and bibasilar atelectasis or infiltrates. Upper lung zones remain clear. IMPRESSION: No significant change from yesterday. POS: [facility]
--- NOTE | 2018-04-21 10:21 | PDOC.PN ---
- Subjective Encounter Start Date: 04/21/18 Encounter Start Time: 10:19 Subjective: exyubated, calm - Objective MAR Reviewed: Yes Vital Signs & Weight: Vital Signs (12 hours) Temp Pulse Resp BP Pulse Ox 04/21/18 08:56 85 108/66 04/21/18 08:00 99.2 F 10 L 04/21/18 07:00 99.2 F 04/21/18 06:45 60 95/61 04/21/18 06:43 60 12 100 04/21/18 06:00 12 04/21/18 04:00 99.4 F 12 04/21/18 02:30 60 114/70 04/21/18 02:00 12 04/21/18 00:00 99.9 F H 12 95 Weight Admit Weight 288 lb 2.307 oz Weight 283 lb 11.759 oz Most Recent Monitor Data Heart Rate from ECG 78 NIBP 104/60 NIBP BP-Mean 74 Respiration from ECG 27 SpO2 99 I&O: 04/20/18 04/21/18 04/22/18 06:59 06:59 06:59 Intake Total 2481.0 2161.3 Output Total 2771 4290 480 Balance -290.0 -2128.7 -480 Result Diagrams: 04/21/18 04:22 04/21/18 04:22 Additional Labs: Accuchecks 04/21/18 04/21/18 04/21/18 08:05 04:25 00:04 POC Glucose 115 H 146 H 140 H 04/20/18 04/20/18 04/20/18 20:14 17:02 11:32 POC Glucose 111 H 118 H 162 H Radiology Reviewed by me: Yes (cxr- residual infiltrtes L>R) Phys Exam - Physical Examination Neck: no JVD some basilar rales, OW clear Cardiovascular: RRR, no significant murmur Gastrointestinal: soft, non-tender, positive bowel sounds Musculoskeletal: no edema Dx/Plan (1) Acute respiratory failure Code(s): J96.00 - ACUTE RESPIRATORY FAILURE, UNSP W HYPOXIA OR HYPERCAPNIA Status: Resolved Qualifiers: Respiratory failure complication: hypoxia and hypercapnia Qualified Code(s) : J96.01 - Acute respiratory failure with hypoxia; J96.02 - Acute respiratory failure with hypercapnia (2) Status epilepticus Code(s): G40.901 - EPILEPSY, UNSP, NOT INTRACTABLE, WITH STATUS EPILEPTICUS Status: Acute (3) Diabetes mellitus type 2, uncontrolled Code(s): E11.65 - TYPE 2 DIABETES MELLITUS WITH HYPERGLYCEMIA Status: Chronic Qualifiers: Glycemic state: with hyperglycemia Qualified Code(s): E11.65 - Type 2 diabetes mellitus with hyperglycemia (4) Aspiration pneumonia Code(s): J69.0 - PNEUMONITIS DUE TO INHALATION OF FOOD AND VOMIT Status: Suspected Qualifiers: Aspiration pneumonia type: due to vomit Laterality: bilateral Lung location: unspecified part of lung Qualified Code(s): J69.0 - Pneumonitis due to inhalation of food and vomit (5) NSTEMI (non-ST elevated myocardial infarction) Code(s): I21.4 - NON-ST ELEVATION (NSTEMI) MYOCARDIAL INFARCTION Status: Suspected Comment: with NSVT (6) Cardiomyopathy Code(s): I42.9 - CARDIOMYOPATHY, UNSPECIFIED Status: Acute Qualifiers: Cardiomyopathy type: unspecified Qualified Code(s): I42.9 - Cardiomyopathy , unspecified - Plan swallowing eval, transition to po meds when appropriate -: cont antiseizure meds -: cont asa, coreg , lisinopril * .
[2018-04-21 15:42] LABS: ALV-art Gradient 146.775 (0-20)
[2018-04-21 15:43] LABS: Puncture Site LR
[2018-04-21] MEDS: Enoxaparin Sodium 40 MG/0.4 ML SYRINGE SC SCH (20:42)
[2018-04-21] MEDS: Atorvastatin Calcium 40 MG TAB PO SCH (20:43)
[2018-04-22] MEDS: Metoclopramide HCl 10 MG/2 ML VIAL IVP SCH (04:54)
[2018-04-22] MEDS: Levothyroxine 175 MCG TAB PO SCH (04:55)
[2018-04-22 05:40] LABS: Eosinophils 1 % (0-10); Hemoglobin 15.3 g/dL (14.0-18.0); Lymphocytes 17 % (21-51); MDiff Complete? YES; Mean Corpuscular HGB CONC 33.7 g/dL (32.0-36.0); Mean Corpuscular Hemoglobin 31.6 pg (27.0-31.0); Mean Corpuscular Volume 93.7 fL (78.0-98.0); Mean Platelet Volume 7.5 fL (7.4-10.4); Monocytes 3 % (0-10); Neutrophil 79 % (42-75); Platelet Count 321 thou/uL (130-400); Platelet Morphology Comment Appears Adequate; RBC Distribution Width 12.5 % (11.5-14.5); Red Blood Cell (RBC) Count 4.83 mill/uL (4.70-6.10); White Blood Cell (WBC) Count 17.6 thou/uL (4.8-10.8)
[2018-04-22 05:47] LABS: Anion Gap 14 mmol/L (10-20); BUN (Urea Nitrogen) 26 mg/dL (8.9-20.6); Calc. Creatinine Clearance 196 mL/min (70-130); Carbon Dioxide 20 mmol/L (22-29); Chloride 108 mmol/L (98-107); Estimated GFR-MDRD Greater than 90; Glucose 105 mg/dL (70-105); Potassium 3.9 mmol/L (3.5-5.1); Sodium 138 mmol/L (136-145)
[2018-04-22] MEDS: Levothyroxine 100 MCG SDV IVP SCH (06:19)
[2018-04-22] MEDS ORDERED: HumaLOG 300 UNITS/3 ML VIAL SC PRN ×2 (08:28)
--- NOTE | 2018-04-22 08:32 | PDOC.PN ---
- Subjective Encounter Start Date: 04/22/18 (f/u htn) Encounter Start Time: 08:30 Subjective: Pt today is extubated, feeling better. Does notice weakness. Denies pain -: reports he was cutting back on his medication due to inability to afford -: them. - Objective Vital Signs & Weight: Vital Signs (12 hours) Temp Pulse Resp BP Pulse Ox 04/22/18 07:22 101 H 16 96 04/22/18 04:00 99.5 F 04/22/18 02:16 90 14 93 L 04/22/18 00:00 99.9 F H 04/21/18 22:48 92 16 94 L 04/21/18 20:43 97 127/67 Weight Admit Weight 288 lb 2.307 oz Weight 264 lb 12.403 oz Most Recent Monitor Data Heart Rate from ECG 96 NIBP 123/91 NIBP BP-Mean 101 Respiration from ECG 15 SpO2 95 I&O: 04/21/18 04/22/18 04/23/18 06:59 06:59 06:59 Intake Total 2161.3 1089 Output Total 4290 3625 Balance -2128.7 -2536 Result Diagrams: 04/22/18 05:15 04/22/18 05:15 Additional Labs: Accuchecks 04/22/18 04/21/18 04/21/18 06:12 19:24 16:04 POC Glucose 106 113 H 124 H 04/21/18 11:24 POC Glucose 97 EKG Reviewed by me: Yes (tele - sinus) Phys Exam - Physical Examination Constitutional: NAD Respiratory: no wheezing, no rales, no rhonchi decreased breath sounds at the bases Cardiovascular: RRR, no significant murmur Gastrointestinal: soft, non-tender, positive bowel sounds Musculoskeletal: no edema Neurological: non-focal, moves all 4 limbs Psychiatric: normal affect Deviation from normal: mulitple areas of hyperpigmented macules on LE bilateral - -: likely scarring Dx/Plan (1) Acute respiratory failure Code(s): J96.00 - ACUTE RESPIRATORY FAILURE, UNSP W HYPOXIA OR HYPERCAPNIA Status: Resolved Qualifiers: Respiratory failure complication: hypoxia and hypercapnia Qualified Code(s) : J96.01 - Acute respiratory failure with hypoxia; J96.02 - Acute respiratory failure with hypercapnia (2) Cardiomyopathy Code(s): I42.9 - CARDIOMYOPATHY, UNSPECIFIED Status: Acute Qualifiers: Cardiomyopathy type: unspecified Qualified Code(s): I42.9 - Cardiomyopathy , unspecified (3) Status epilepticus Code(s): G40.901 - EPILEPSY, UNSP, NOT INTRACTABLE, WITH STATUS EPILEPTICUS Status: Chronic (4) Diabetes mellitus type 2, uncontrolled Code(s): E11.65 - TYPE 2 DIABETES MELLITUS WITH HYPERGLYCEMIA Status: Chronic Qualifiers: Glycemic state: with hyperglycemia Qualified Code(s): E11.65 - Type 2 diabetes mellitus with hyperglycemia (5) NSTEMI (non-ST elevated myocardial infarction) Code(s): I21.4 - NON-ST ELEVATION (NSTEMI) MYOCARDIAL INFARCTION Status: Suspected Comment: with NSVT - Plan * appreciate Pulm care - extubated, oxygen requiring, wean as tolerated. Pt on IV steroids - anticipate that he can be transitioned to oral steroids, continue nebs, IS * Prolonged stay in ICU - PT/OT * Transfer to [facility] * Continue current meds for seizures * Cardiomyopathy/NSVT - appreciate Cardiology following - on bb, jhon-i, statin, aspirin with recommendation to tx conservatively * DM - on SSI, monitor and add long acting insulin if necessary. AM blood sugar around 100 this AM * * dvt prophy - lovenox * gi prophy - not indicated * code status full * * case management consult for assistance with affording meds * pt at high risk for complications, Anticipate several days to improve function, wean oxygen. he will benefit from skilled facility or rehab if he qualifies.
--- NOTE | 2018-04-22 08:49 | PRG ---
DATE OF SERVICE: 04/22/2018 SUBJECTIVE: He is doing well after being extubated yesterday. He is in relatively good spirits. He tells me that he has not been taking his medications as prescribed at home, particularly his seizure medication. OBJECTIVE: VITAL SIGNS: On exam, his temperature is 99.5, pulse 96, blood pressure 123/91. 24-hour intake 1089, output 3625. HEENT: Unremarkable. NECK: Without adenopathy or JVD. CHEST: His chest is fairly clear. CARDIAC: S1, S2 regular. ABDOMEN: Soft. EXTREMITIES: No edema. LABORATORY DATA: White blood cell count 17.6, hematocrit 45.3, and platelet count 321. Sodium 138, potassium 3.9, chloride 108, CO2 of 20, BUN 26, creatinine 0.8, glucose 105. His chest x-ray shows almost complete improvement. ASSESSMENT: 1. Status post respiratory failure after seizure episode and one episode of self-extubation. 2. Improved diastolic cardiac dysfunction. 3. Seizure disorder. 4. Mild rhabdomyolysis, which is improved. 5. Nonsustained ventricular tachycardia that has not recurred. RECOMMENDATIONS: He can be transferred out to the medical floor. He needs to get involved with Physical Therapy. His antibiotic therapy has been stopped and all the sedation has been stopped. I think he can probably moved over to oral anticonvulsants. I also believe that his intermittent Haldol can be stopped. His progress is encouraging and hopefully he will be able to go home sometime early next week. I will go ahead and stop his Diamox since he has now developed a metabolic acidosis from that medication. At some point, he may have to resume furosemide. Also, I think his Reglan can be stopped. I will switch him to oral prednisone for the next 5 days, then that can be stopped. Job ID: [id number]
[2018-04-22] MEDS: Aspirin Chewable 81 MG TAB PO SCH (08:58)
[2018-04-22] MEDS: Carvedilol 6.25 MG TAB PO SCH ×2 (08:58→17:01)
[2018-04-22] MEDS: Famotidine 20 MG TAB PO SCH (09:00)
[2018-04-22] MEDS: predniSONE 20 MG TAB PO SCH (09:01)
[2018-04-22] MEDS: levETIRAcetam 500 mg/5 ml Oral Solution PER TUBE SCH ×2 (09:03→21:07)
[2018-04-22] MEDS: Lisinopril 5 MG TAB PO SCH ×2 (09:04→21:07)
--- NOTE | 2018-04-22 12:36 | RAD ---
RADIOGRAPH CHEST 1 VIEW: Date: 04/22/2018. Time: 4:32 a.m. HISTORY: A 47-year-old male with respiratory distress. Ventilation. COMPARISON: 04/21/2018, 4:33 a.m. FINDINGS: Endotracheal tube and NG tube have been removed. There continues to be consolidations at the left lo wer lung zone. Previously, there was left parahilar mid lung zone pulmonary opacity, which has impro mary or resolved now. Probable mild atelectasis at the right medial lung base. No ronnie pulmonary al veolar edema. No pneumothorax identified. IMPRESSION: 1. Status post extubation. 2. Consolidation at the left lower lung zone remains. TYLER [] POS: [facility]LEJANDR[facility]
[2018-04-22] MEDS: Enoxaparin Sodium 40 MG/0.4 ML SYRINGE SC SCH (21:08)
[2018-04-22] MEDS: Atorvastatin Calcium 40 MG TAB PO SCH (21:08)
[2018-04-22] MEDS ORDERED: Loratadine 10 MG TAB PO PRN (23:02)
[2018-04-23] MEDS: Loperamide HCl 2 MG CAP PO PRN (00:11)
[2018-04-23] MEDS: Levothyroxine 175 MCG TAB PO SCH (06:10)
[2018-04-23 06:13] VITALS: BMI 36.8
[2018-04-23 06:14] LABS: Anion Gap 14 mmol/L (10-20); BUN (Urea Nitrogen) 21 mg/dL (8.9-20.6); Calc. Creatinine Clearance 203 mL/min (70-130); Calcium 9.3 mg/dL (7.8-10.44); Carbon Dioxide 19 mmol/L (22-29); Chloride 108 mmol/L (98-107); Estimated GFR-MDRD Greater than 90; Glucose 124 mg/dL (70-105); Potassium 3.1 mmol/L (3.5-5.1); Sodium 138 mmol/L (136-145)
--- NOTE | 2018-04-23 09:08 | PRG ---
DATE OF SERVICE: 04/23/2018 SUBJECTIVE: He is having a little diarrhea. He is also having some leg pain. OBJECTIVE: VITAL SIGNS: On exam, his temperature is 98.7, pulse 105, O2 saturation 92% on room air, respiratory rate 18. Intake 24- hours 800, output 1727, weight 263. HEENT: Unremarkable. NECK: No JVD. CHEST: Clear without wheezing or rhonchi. CARDIAC: S1, S2. Regular. ABDOMEN: Soft. EXTREMITIES: No edema. LABORATORY DATA: Sodium 138, potassium 3.1, chloride 108, CO2 of 19, BUN 21, creatinine 0.7, and glucose 124. ASSESSMENT: 1. Status post respiratory failure after seizure episode. 2. Improved diastolic cardiac dysfunction. 3. Seizure disorder. 4. Mild rhabdomyolysis, which is improved. 5. Nonsustained ventricular tachycardia, which resolved. PLAN: Plan has [place] 4 orders. He can have Tylenol as needed for headache and Imodium as needed for diarrhea. Main issue now is Physical Therapy. He is off all antibiotics. Job ID: [id number]
[2018-04-23] MEDS: Lisinopril 5 MG TAB PO SCH ×2 (10:26→21:56)
[2018-04-23] MEDS: Aspirin Chewable 81 MG TAB PO SCH (10:27)
[2018-04-23] MEDS: Carvedilol 6.25 MG TAB PO SCH ×2 (10:27→21:56)
[2018-04-23] MEDS: predniSONE 20 MG TAB PO SCH (10:27)
[2018-04-23] MEDS: levETIRAcetam 500 mg/5 ml Oral Solution PER TUBE SCH ×2 (11:43→22:11)
[2018-04-23] MEDS ORDERED: Nicotine 21 MG PATCH TOP SCH (18:00)
--- NOTE | 2018-04-23 18:36 | PDOC.PN ---
- Subjective Encounter Start Date: 04/23/18 Encounter Start Time: 18:30 Subjective: f/u s/p seizure disorder and [facility] min NC -: Requesting something for anxiety. - Objective MAR Reviewed: Yes Vital Signs & Weight: Vital Signs (12 hours) Temp Pulse Resp BP Pulse Ox 04/23/18 17:00 97.6 F 04/23/18 10:27 120/73 04/23/18 10:26 100 134/91 H 04/23/18 08:00 98.6 F 99 04/23/18 07:09 100 18 92 L Weight Admit Weight 288 lb 2.307 oz Weight 263 lb 14.293 oz Most Recent Monitor Data Heart Rate from ECG 89 NIBP 130/88 NIBP BP-Mean 102 Respiration from ECG 19 SpO2 96 I&O: 04/22/18 04/23/18 04/24/18 06:59 06:59 06:59 Intake Total 0209 012 3393 Output Total 3625 1725 Balance -2536 -925 1020 Result Diagrams: 04/22/18 05:15 04/23/18 05:20 Additional Labs: Accuchecks 04/23/18 04/23/18 04/23/18 16:06 11:43 06:09 POC Glucose 141 H 142 H 122 H 04/22/18 21:14 POC Glucose 115 H Radiology Reviewed by me: Yes (PCXR - LLL consolidation) EKG Reviewed by me: Yes (Tele - SR) Phys Exam - Physical Examination anxious HEENT: PERRLA, sclera anicteric, oral pharynx no lesions Neck: no nodes, no JVD, supple, full ROM Respiratory: no wheezing, no rales, no rhonchi, clear to auscultation bilateral S1, S2 Cardiovascular: RRR, no significant murmur, no rub, gallop Gastrointestinal: soft, non-tender, no distention, positive bowel sounds Musculoskeletal: no edema, pulses present Neurological: normal sensation, moves all 4 limbs Psychiatric: A&O x 3 Skin: normal turgor, cap refill <2 seconds Dx/Plan (1) Status epilepticus Code(s): G40.901 - EPILEPSY, UNSP, NOT INTRACTABLE, WITH STATUS EPILEPTICUS Status: Chronic Comment: Resolved, continue Keppra 1000mg BID (2) Acute respiratory failure Code(s): J96.00 - ACUTE RESPIRATORY FAILURE, UNSP W HYPOXIA OR HYPERCAPNIA Status: Acute Qualifiers: Respiratory failure complication: hypoxia and hypercapnia Qualified Code(s) : J96.01 - Acute respiratory failure with hypoxia; J96.02 - Acute respiratory failure with hypercapnia Comment: s/p extubation, continue wean of O2 supplementation as clinically indicated (3) Tetrahydrocannabinol (THC) use disorder, moderate, dependence Code(s): F12.20 - CANNABIS DEPENDENCE, UNCOMPLICATED Status: Chronic Comment : Ativan prn anxiety (4) Non-sustained ventricular tachycardia Code(s): I47.2 - VENTRICULAR TACHYCARDIA Status: Acute Comment: Transient and resolved, continue Coreg (5) Diabetes mellitus type II, non insulin dependent Code(s): E11.9 - TYPE 2 DIABETES MELLITUS WITHOUT COMPLICATIONS Status: Chronic Comment: Resume Metformin 500mg daily, ISS, ADA - Plan PT/OT, vp digital marketing social media and crm, out of bed/ambulate, DVT proph w/SCDs Stable overall -: Continue Prednisone -: Add Ativan 1mg po Q6h prn -: OOB/ambulate with assist -: Transfer to medical floor * Likely home in 24-48h
[2018-04-23] MEDS ORDERED: Lorazepam 1 MG TAB PO PRN (18:46)
[2018-04-23] MEDS: Atorvastatin Calcium 40 MG TAB PO SCH (21:56)
[2018-04-23] MEDS: Lorazepam 1 MG TAB PO PRN (21:56)
[2018-04-23] MEDS: Enoxaparin Sodium 40 MG/0.4 ML SYRINGE SC SCH (21:57)
[2018-04-24] MEDS: Loperamide HCl 2 MG CAP PO PRN ×4 (00:55→16:32)
[2018-04-24] MEDS: Levothyroxine 175 MCG TAB PO SCH (06:58)
[2018-04-24] MEDS: Aripiprazole 10 MG TAB PO SCH (08:11)
[2018-04-24] MEDS: Carvedilol 6.25 MG TAB PO SCH ×2 (08:11→16:32)
[2018-04-24] MEDS: metFORMIN 500 MG TAB PO SCH (08:11)
[2018-04-24] MEDS: Lisinopril 5 MG TAB PO SCH ×2 (08:11→20:26)
[2018-04-24] MEDS: Aspirin Chewable 81 MG TAB PO SCH (08:12)
[2018-04-24] MEDS: predniSONE 20 MG TAB PO SCH (08:12)
[2018-04-24] MEDS: levETIRAcetam 500 mg/5 ml Oral Solution PER TUBE SCH ×2 (09:57→20:27)
--- NOTE | 2018-04-24 10:55 | PRG ---
DATE OF SERVICE: 04/24/2018 SUBJECTIVE: Mr. Reyes appears to be doing better. He has no acute complaints. OBJECTIVE: VITAL SIGNS: Temperature is 97.8, pulse 102, respirations 20, O2 saturation 93% on room air, blood pressure 124/88. HEENT: Unremarkable. NECK: No JVD. CHEST: Clear. CARDIAC: S1 and S2. Regular. ABDOMEN: Soft. EXTREMITIES: No edema. ASSESSMENT: 1. Status post mechanical ventilation after seizure disorder. His pulmonary status is currently stable. 2. Improved diastolic cardiac dysfunction. 3. Mild rhabdomyolysis, which has resolved. PLAN: The patient's pulmonary status improved to the point where I think he can go home. He may need case management assistance in obtaining his seizure medication as he was trying to skimp on the medication prior to admission and I think that triggered the seizure. Pulmonary will sign off. Please re-call if further assistance is needed. Job ID: [id number]
[2018-04-24 13:23] LABS: Anion Gap 17 mmol/L (10-20); BUN (Urea Nitrogen) 22 mg/dL (8.9-20.6); Calc. Creatinine Clearance 218 mL/min (70-130); Calcium 9.1 mg/dL (7.8-10.44); Carbon Dioxide 17 mmol/L (22-29); Chloride 105 mmol/L (98-107); Estimated GFR-MDRD Greater than 90; Glucose 136 mg/dL (70-105); Potassium 3.5 mmol/L (3.5-5.1); Sodium 135 mmol/L (136-145)
--- NOTE | 2018-04-24 17:21 | PDOC.PN ---
- Subjective Encounter Start Date: 04/24/18 Encounter Start Time: 17:20 Subjective: f/u for s/p mech ventilation and seizures. Feels ok except mild shoulder -: pain apparently falling in room overnight. No focal deficits or unilateral -: weakness. - Objective MAR Reviewed: Yes Vital Signs & Weight: Vital Signs (12 hours) Temp Pulse Resp BP BP Pulse Ox 04/24/18 16:32 112/73 04/24/18 16:00 97.5 F L 93 18 135/94 H 93 L 04/24/18 12:00 97.9 F 85 20 91/58 L 91 L 04/24/18 08:42 97.8 F 102 H 20 124/88 93 L 04/24/18 08:11 87 124/88 04/24/18 08:00 93 L Weight Admit Weight 288 lb 2.307 oz Weight 264 lb 8.875 oz Most Recent Monitor Data Heart Rate from ECG 89 NIBP 130/88 NIBP BP-Mean 102 Respiration from ECG 19 SpO2 96 I&O: 04/23/18 04/24/18 04/25/18 06:59 06:59 06:59 Intake Total 800 1020 Output Total 1725 Balance -925 1020 Result Diagrams: 04/22/18 05:15 04/24/18 12:46 Additional Labs: Accuchecks 04/24/18 04/24/18 04/24/18 16:43 11:13 06:37 POC Glucose 126 H 141 H 114 H 04/23/18 20:37 POC Glucose 127 H Phys Exam - Physical Examination Constitutional: NAD HEENT: PERRLA, sclera anicteric, oral pharynx no lesions Neck: no nodes, no JVD, supple, full ROM Respiratory: no wheezing, no rales, no rhonchi, clear to auscultation bilateral S1, S2 Cardiovascular: RRR, no significant murmur, no rub, gallop Gastrointestinal: soft, non-tender, no distention, positive bowel sounds Musculoskeletal: no edema, pulses present Neurological: normal sensation, moves all 4 limbs Psychiatric: normal affect, A&O x 3 Skin: normal turgor, cap refill <2 seconds Dx/Plan (1) Status epilepticus Code(s): G40.901 - EPILEPSY, UNSP, NOT INTRACTABLE, WITH STATUS EPILEPTICUS Status: Chronic Comment: Resolved, continue Keppra 1000mg BID (2) Acute respiratory failure Code(s): J96.00 - ACUTE RESPIRATORY FAILURE, UNSP W HYPOXIA OR HYPERCAPNIA Status: Acute Qualifiers: Respiratory failure complication: hypoxia and hypercapnia Qualified Code(s) : J96.01 - Acute respiratory failure with hypoxia; J96.02 - Acute respiratory failure with hypercapnia Comment: s/p extubation, continue wean of O2 supplementation as clinically indicated (3) Tetrahydrocannabinol (THC) use disorder, moderate, dependence Code(s): F12.20 - CANNABIS DEPENDENCE, UNCOMPLICATED Status: Chronic Comment : Ativan prn anxiety (4) Non-sustained ventricular tachycardia Code(s): I47.2 - VENTRICULAR TACHYCARDIA Status: Acute Comment: Transient and resolved, continue Coreg (5) Diabetes mellitus type II, non insulin dependent Code(s): E11.9 - TYPE 2 DIABETES MELLITUS WITHOUT COMPLICATIONS Status: Chronic Comment: Resume Metformin 500mg daily, ISS, ADA - Plan 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
[2018-04-24] MEDS: Atorvastatin Calcium 40 MG TAB PO SCH (20:26)
[2018-04-24] MEDS: Lorazepam 1 MG TAB PO PRN (20:26)
[2018-04-24] MEDS: Enoxaparin Sodium 40 MG/0.4 ML SYRINGE SC SCH (20:26)
[2018-04-25] MEDS: Levothyroxine 175 MCG TAB PO SCH (05:42)
[2018-04-25] MEDS: Lisinopril 5 MG TAB PO SCH (08:36)
[2018-04-25] MEDS: Carvedilol 6.25 MG TAB PO SCH (08:36)
[2018-04-25] MEDS: predniSONE 20 MG TAB PO SCH (08:36)
[2018-04-25] MEDS: Aripiprazole 10 MG TAB PO SCH (08:36)
[2018-04-25] MEDS: metFORMIN 500 MG TAB PO SCH (08:38)
[2018-04-25] MEDS: Aspirin Chewable 81 MG TAB PO SCH (08:38)
--- NOTE | 2018-04-25 10:50 | DIS ---
DATE OF ADMISSION: 04/11/2018 DATE OF DISCHARGE: 04/25/2018 DISCHARGE DIAGNOSES: 1. Status epilepticus, resolved. 2. Acute hypoxic hypercapnic respiratory failure secondarily for prolonged seizure, resolved. 3. Nonsustained ventricular tachycardia, transient, resolved. 4. Cannabis abuse. 5. Diabetes mellitus, type 2, stable. 6. Non-ST elevation myocardial infarction. CONSULTATIONS: 1. Dr. Dawson with GI Service. 2. Dr. Leblanc with Pulmonology/Critical Care Service. 3. Dr. Gustavo Valadez with Cardiology Service. 4. Dr. Senior with Neurology Service. PERTINENT LABORATORY AND X-RAY FINDINGS: Creatinine ranged between 0.71 to 1.65. Estimated GFR ranged between 46 to greater than 90. Troponin I ranged between 4.66 to 13.9. Blood cultures x2 dated 04/11/2018, showed no growth at 5 days. C difficile antigen and toxin dated 04/24/2018, negative. CT angiogram of the chest dated 04/11/2018, showed bilateral lower lobe consolidations with associated atelectasis. No evidence for pulmonary embolus. Endotracheal tube in appropriate position. EGD dated 04/12/2018, showed duodenitis without active bleed. Mild gastritis. 2D transthoracic echocardiogram dated 04/14/2018, showed technically limited study. Endocardial definition extremely limited. HOSPITAL COURSE: The patient was initially admitted to the Critical Care Unit after initially presenting with recurrent seizures with associated respiratory failure. The patient with prolonged seizure activity with persistent altered mentation in a postictal state with associated tachypnea, tachycardia, and hypoxemia. The patient was placed on oxygen supplementation with minimal response and was apparently unable to follow commands in the emergency room. The patient underwent subsequent airway protection with intubation and placed on mechanical ventilation. The patient was monitored in the critical care unit by the Pulmonology/Critical Care Service throughout the CCU stay. The patient received IV Keppra 1000 mg twice daily and evaluated by the Neurology Service. The patient's presentation likely due to noncompliance with chronic medication regimen as the patient's drug screen was positive for opiates and cannabis. The patient subsequently weaned off mechanical ventilation, transitioning to oxygen via nasal cannula. The patient was eventually transitioned to the medical floor and remained clinically stable. The patient was also evaluated by the Cardiology Service due to elevated troponin I at the time of presentation. The patient likely sustained a non-ST elevation myocardial infarction with recommendations for medical management. The patient received aspirin, lisinopril, and Coreg with stable cardiac status throughout the hospital stay. The patient clinically stabilized, tolerating regular oral intake and ambulating without assistance or difficulty. I have examined the patient at the time of discharge and discussed followup instructions. The patient verbalizes understanding and agreement and the need for compliance with his chronic medication regimen as well as anti-seizure therapy. The patient is ready for discharge on 04/25/2018. DISCHARGE MEDICATIONS: 1. Lisinopril 5 mg p.o. b.i.d. 2. Levothyroxine 175 mcg p.o. daily. 3. Coreg 12.5 mg p.o. b.i.d. 4. Enteric-coated aspirin 81 mg p.o. daily. 5. Metformin 500 mg p.o. daily. 6. Abilify 10 mg p.o. daily. 7. Keppra 500 mg p.o. b.i.d. 8. Zocor 40 mg p.o. at bedtime. FOLLOWUP: The patient may follow up with Dr. Malorie Coffey within 7 days of discharge. CONDITION ON DISCHARGE: Stable. ACTIVITY: Ad selvin. No driving with recurrent seizures. DIET: ADA and heart healthy. CODE STATUS: Full. DISPOSITION: Home on 04/25/2018. TIME SPENT: Total time preparing and coordinating discharge, 35 minutes. Job ID: [id number]
[2018-04-25 11:55] VITALS: BP 104/71; TEMP 97.3
[2018-04-25] MEDS: levETIRAcetam 500 mg/5 ml Oral Solution PER TUBE SCH (12:10)
== END 2018-04-25 12:32 | disposition home or self-care (01) | DRG 100 ==
LOC: ERS 17:48 → CCU 21:05 → T4-A 04-23 18:36
PROVIDERS: ADMIT Emergency Medicine; ATTEND Emergency Medicine
PROC: 5A1955Z Respiratory Ventilation, Greater than 96 Consecutive Hours (ICD-10-PCS; 2018-04-11)
PROC: 0DJ08ZZ Inspection of Upper Intestinal Tract, Via Natural or Artificial Opening Endoscopic (ICD-10-PCS; principal; 2018-04-12)
PROC: 0BH17EZ Insertion of Endotracheal Airway into Trachea, Via Natural or Artificial Opening (ICD-10-PCS; 2018-04-13)
DX: G40.901 Epilepsy, unspecified, not intractable, with status epilepticus (principal); J96.01 Acute respiratory failure with hypoxia; J69.0 Pneumonitis due to inhalation of food and vomit; K29.71 Gastritis, unspecified, with bleeding; I21.4 Non-ST elevation (NSTEMI) myocardial infarction; J96.02 Acute respiratory failure with hypercapnia; E87.2 Acidosis; N17.9 Acute kidney failure, unspecified; I47.2 Ventricular tachycardia; I42.9 Cardiomyopathy, unspecified; Z68.41 Body mass index [BMI] 40.0-44.9, adult; G93.40 Encephalopathy, unspecified; M62.82 Rhabdomyolysis; I50.30 Unspecified diastolic (congestive) heart failure; K29.80 Duodenitis without bleeding; I11.0 Hypertensive heart disease with heart failure; E11.65 Type 2 diabetes mellitus with hyperglycemia; W19.XXXA Unspecified fall, initial encounter; S01.81XA Laceration without foreign body of other part of head, initial encounter; E03.9 Hypothyroidism, unspecified; I25.10 Atherosclerotic heart disease of native coronary artery without angina pectoris; Z91.14 Patient's other noncompliance with medication regimen; F41.9 Anxiety disorder, unspecified; I87.2 Venous insufficiency (chronic) (peripheral); E66.01 Morbid (severe) obesity due to excess calories; F17.210 Nicotine dependence, cigarettes, uncomplicated; Z88.0 Allergy status to penicillin; Z88.2 Allergy status to sulfonamides; Z88.8 Allergy status to other drugs, medicaments and biological substances
CPT/HCPCS: 31500; 36415; 36416; 71045; 71275; 80048; 80053; 80202; 82010; 82330; 82550; 82553; 82803; 82805; 83605; 83735; 84484; 85025; 87324; 87449; 90471; 90732; 93005; 93306; 94002; 94003; 94640; 96361; 96365; 96366; 96374; A4216; C9113; G0009; J0360; J1120; J1630; J1650; J1940; J1953; J2060; J2185; J2543; J2704; J2765; J2920; J3010; J3370; J7050; J7506; J7620; Q9966; S0028

== ENCOUNTER 2018-08-16 19:40 | Observation (INO) | payer SELFPAY ==
[2018-08-16] MEDS ORDERED: Morphine 4 MG/ML VIAL ONE (20:33)
[2018-08-16 23:28] LABS: Troponin I Less than 0.010 ng/mL (< 0.028)
[2018-08-16 23:57] VITALS: BMI 37.0
[2018-08-17] MEDS ORDERED: Acetaminophen 325 MG TAB PO PRN (00:36)
[2018-08-17 02:35] LABS: Troponin I Less than 0.010 ng/mL (< 0.028)
[2018-08-17] MEDS ORDERED: Aspirin 325 MG TAB PO SCH (08:00)
[2018-08-17] MEDS ORDERED: HumaLOG 300 UNITS/3 ML VIAL SC PRN (09:51)
[2018-08-17] MEDS ORDERED: Dextrose 5% in Water 1,000 ML IV PRN (09:51)
[2018-08-17] MEDS ORDERED: Guaifenesin DM 100-10/5 ML UDCUP PO PRN (09:51)
[2018-08-17] MEDS ORDERED: Senokot S 8.6-50 MG TAB PO PRN (09:51)
[2018-08-17] MEDS ORDERED: Dextrose 50% Abboject 50 ML SYRINGE SLOW IVP PRN (09:51)
[2018-08-17] MEDS ORDERED: Nitroglycerin 0.4 MG TAB (25 Tab Bottle) PO PRN (09:51)
[2018-08-17] MEDS ORDERED: Sodium Chloride 0.9% 1,000 ML IV SCH ×2 (10:00→14:15)
--- NOTE | 2018-08-17 12:34 | HP ---
REASON FOR ADMISSION: Atypical chest pain. HISTORY OF PRESENTING ILLNESS: The patient gives history of having chest pressure off and on from last 4 months now. He says yesterday his daughter was a bit angry at someone, but he developed chest pain/pressure. It is mostly in the left precordial area. Sometimes this pressure pain radiates to left upper extremity. He states that once it starts, it stays the whole day. He has tried various medications including Tylenol and Motrin, none of which resolved the pain. It slowly eases up by itself. No complaints of cough or expectoration or fever. No complaints of palpitations, PND, or orthopnea. These episodes have been happening multiple times and the patient's daughter who is wanting to get into nursing finally counseled them to go to [facility] from where he was transferred here. PAST MEDICAL AND SURGICAL HISTORY: History of seizure disorder for which he was hospitalized here in March of this year, then had [id number] PA with troponin going up to 18, history of lupus and diabetes mellitus type 2, hypothyroidism, dyslipidemia, history of ADHD, history of trach, and PEG with reversals. CURRENT MEDICATIONS: The patient is on: 1. Levothyroxine 175 mcg p.o. daily. 2. Keppra 500 mg p.o. twice daily. 3. Aspirin 81 mg p.o. daily. 4. Metformin 500 mg p.o. daily. 5. Coreg 6.25 mg twice daily. 6. Lipitor 40 mg p.o. daily. 7. Strattera 25 mg daily for ADHD. ALLERGIES: ALLERGIC TO CODEINE, PENICILLIN, SULFA, AND GEODON. PERSONAL HISTORY: Quit smoking one year back prior to which has smoked 1 pack a day for nearly 8 years. Does not abuse alcohol or drugs. Lives with his son. He is . FAMILY HISTORY: Father at the age of 47 from massive PA. Mother also had PA and at the age of 61. CODE STATUS: Full. Power of attorney at law is his daughter, Ms. Roa. REVIEW OF SYSTEMS: CONSTITUTIONAL: Negative for weight loss or gain, ability to conduct usual activities. SKIN: Negative for rash, itching. EYES: Negative for double vision, pain. ENT/MOUTH: Negative for nose bleeding, neck stiffness, pain, tenderness. CARDIOVASCULAR: Negative for palpitations, dyspnea on exertion, orthopnea. RESPIRATORY: Negative for shortness of breath, wheezing, cough, hemoptysis, fever or night sweats. GASTROINTESTINAL: Negative for poor appetite, abdominal pain, heartburn, nausea , vomiting, constipation, or diarrhea. GENITOURINARY: Negative for urgency, frequency, dysuria, nocturia. MUSCULOSKELETAL: Negative for pain, swelling. NEUROLOGIC/PSYCHIATRIC: Negative for anxiety, depression. ALLERGY/IMMUNOLOGIC: Negative for skin rash, bleeding tendency. PHYSICAL EXAMINATION: GENERAL: The patient is a 47-year-old male, who is currently not in any acute distress. VITAL SIGNS: Blood pressure 142/84, pulse 80 per minute, respiratory rate is 18 per minute, temperature 97.8 degrees Fahrenheit, saturating 94% on room air. NECK: Supple. No elevated JVD. HEENT: Eyes; extraocular muscles intact. Pupils reacting to light. Oral cavity, mucous membranes are moist. No exudates or congestion. CARDIOVASCULAR SYSTEM: S1 and S2 heard. Regular rhythm. RESPIRATORY: Air entry 1+ bilateral. No rales or rhonchi. ABDOMEN: Soft. Bowel sounds heard. No tenderness, rigidity, or guarding. EXTREMITIES: No peripheral edema or calf tenderness. VASCULAR SYSTEM: Peripheral pulses 1+ bilateral. No ischemic ulcerations or gangrene. CENTRAL NERVOUS SYSTEM: No gross focal deficits noted. The patient is alert, awake, oriented. PSYCHIATRIC SYSTEM: The patient's mood is euthymic. No hallucinations or delusions. LABORATORY DATA: White count of 10, H and H of 16 and 48, platelet count 330, MCV is 88. D-dimer was 0.27. Electrolytes stable. BUN 14, creatinine 1.0, serum glucose 99. Troponin x3 negative. Liver enzymes within normal limits. Albumin is 4. EKG done shows normal sinus rhythm at 80 beats per minute. There is Q-wave seen in lead III, aVF with poor R-wave progression. CLINICAL IMPRESSION AND PLAN: The patient will be under observation on telemetry for atypical chest pain. He also has underlying attention deficit hyperactivity disorder and it is unclear if these episodes are related to his anxiety issues. He has multiple risk factors for coronary artery disease as well and strong family history. The patient also had elevated troponin of up to 18 when he was very sick in ICU in the month of March. He has had prior echo done, which was poor quality. In view of this, we will obtain echo 2D Doppler for LV function. We will keep him n.p.o. for likely either stress test or cardiac cath. I have discussed these findings with Dr. Valadez. We will hold his metformin for now. He has received a dose of IV Keppra. We will switch him to oral Keppra 500 mg twice daily. He will be on full-dose aspirin, Lipitor, Coreg, Synthroid, and gentle hydration with normal saline at 50 mL per hour. We will await cardiology opinion. Job ID: [id number] [facility]
[2018-08-17 13:06] LABS: Acetaminophen Less than 6.0 mcg/mL (10.0-30.0); Alcohol Less than 10 mg/dL (Less than 10); Salicylate Less than 8.0 mg/dL (15.0-30.0)
[2018-08-17] MEDS ORDERED: Midazolam HCl 2 mg/2 ml Vial ONE (14:09)
[2018-08-17] MEDS ORDERED: Fentanyl 100 MCG/2 ML VIAL ONE (14:10)
[2018-08-17] MEDS ORDERED: Communication Order-Pharmacy FS SCH (14:15)
[2018-08-17] MEDS ORDERED: Clopidogrel Bisulfate 300 MG TAB ONE (14:26)
[2018-08-17] MEDS ORDERED: Heparin 10,000 UNITS/1 ML VIAL ONE (14:26)
[2018-08-17] MEDS ORDERED: Verapamil 5 MG/2 ML VIAL ONE (14:27)
[2018-08-17] MEDS ORDERED: Adenosine 6 MG/2 ML VIAL ONE (14:29)
[2018-08-17] MEDS ORDERED: Nitroglycerin 100MG/250ML BOT 250 ML ONE (14:29)
--- NOTE | 2018-08-17 14:32 | CON ---
DATE OF CONSULTATION: REASON FOR CONSULTATION: Chest pain. HISTORY OF PRESENT ILLNESS: Mr. Reyes is a 47-year-old gentleman, who I saw and evaluated in March of 2018. He presented with a seizure. He had markedly elevated troponin and it was felt to be type 2 NV. He was evaluated and discharged. He then returns today with recurrent chest pain. He states the pain has waxed and waned. It is felt to be severe at times. He does have risk factors including diabetes mellitus, hyperlipidemia, and hypertension. PAST MEDICAL HISTORY: Please see previous H and P. PHYSICAL EXAMINATION: GENERAL: Patient is a pleasant male, who is in no acute distress. The patient appears their stated age. VITAL SIGNS: Blood pressure 145/92, pulse 83, temperature 97.8. NEUROLOGIC: The patient is alert and oriented x3 with no focal neurologic deficits. HEENT: Sclerae without icterus. Mouth has moist mucous membranes with normal pallor. NECK: No JVD. Carotid upstroke brisk. No bruits bilaterally. LUNGS: Clear to auscultation with unlabored respirations. BACK: No scoliosis or kyphosis. CARDIAC: Regular rate and rhythm with normal S1 and S2. No S3 or S4 noted. No significant rubs, murmurs, thrills, or gallops noted throughout the precordium. PMI is not displaced. There is no parasternal heave. ABDOMEN: Soft, nontender, nondistended. No peritoneal signs present. No hepatosplenomegaly. No abnormal striae. EXTREMITIES: 2+ femoral and 2+ dorsalis pedis pulses. No cyanosis, clubbing, or edema. SKIN: No gross abnormalities. PERTINENT LABORATORY DATA: Troponin negative. EKG showed normal sinus rhythm, normal EKG. IMPRESSION: 1. Recurrent chest pain. 2. Previous history of type 2 myocardial infarction. 3. Hypertension. 4. Hyperlipidemia. 5. Diabetes mellitus. RECOMMENDATIONS: I discussed recommendations on medical therapy versus noninvasive stress study versus angiography. The patient is quite anxious and is concerned about underlying coronary artery disease. We would recommend angio with possible PCI. I discussed procedure in full detail with Mr. Reyes. Risks included, not limited to the following: , stroke, NV, need for emergency surgery, loss of limb, bleeding, and infection, as well as a reaction to the dye causing kidney failure and needing long-term dialysis. I also discussed the risks of PCI to include all of the above including coronary dissection and perforation in addition to acute stent thrombosis and restenosis. All questions were answered. Given the above, the patient agreed to proceed with the above procedure. I also discussed drug-coated versus nondrug-coated stent placement. There are no contraindications to proceed if needed. Further recommendations pending the above. Job ID: [id number]
[2018-08-17 17:12] LABS: Amphetamine Not Detected (NotDetected); Barbiturates Screen Not Detected (NotDetected); Benzodiazepine Screen Not Detected (NotDetected); Cocaine Metabolite Screen Not Detected (NotDetected); Medtox Control Line Valid? VALID (VALID); Medtox Reader # READER 1; Methadone Not Detected (NotDetected); Methamphetamine Not Detected (NotDetected); Opiate Screen Not Detected (NotDetected); Oxycodone Screen Not Detected (NotDetected); Phencyclidine (PCP) Not Detected (NotDetected); THC/Cannabinoid Screen Detected (NotDetected); Tricyclic Screen Not Detected (NotDetected)
[2018-08-17] MEDS: Carvedilol 6.25 MG TAB PO SCH (20:19)
[2018-08-17] MEDS: levETIRAcetam 500 MG TAB PO SCH (20:56)
[2018-08-17] MEDS: Acetaminophen 325 MG TAB PO PRN (20:56)
[2018-08-17] MEDS: Famotidine 20 MG TAB PO SCH (20:56)
[2018-08-18 05:18] LABS: #Basophils 0.1 thou/uL (0.0-0.2); #Eosinphils 0.2 thou/uL (0.0-0.7); #Monocytes 1.1 thou/uL (0.11-0.59); %Basophils 0.7 % (0.0-1.0); %Eosinophils 1.7 % (0.0-10.0); %Lymphocytes 26.4 % (21.0-51.0); %Monocytes 9.3 % (0.0-10.0); %Neutrophils 61.9 % (42.0-75.0); Hemoglobin 15.5 g/dL (14.0-18.0); Mean Corpuscular HGB CONC 32.8 g/dL (32.0-36.0); Mean Corpuscular Hemoglobin 29.7 pg (27.0-31.0); Mean Corpuscular Volume 90.7 fL (78.0-98.0); Mean Platelet Volume 6.9 fL (7.4-10.4); Platelet Count 310 thou/uL (130-400); RBC Distribution Width 12.3 % (11.5-14.5); Red Blood Cell (RBC) Count 5.21 mill/uL (4.70-6.10); White Blood Cell (WBC) Count 11.3 thou/uL (4.8-10.8)
[2018-08-18 05:57] LABS: Anion Gap 17 mmol/L (10-20); BUN (Urea Nitrogen) 10 mg/dL (8.9-20.6); Calc. Creatinine Clearance 199 mL/min (70-130); Calcium 9.1 mg/dL (7.8-10.44); Carbon Dioxide 22 mmol/L (22-29); Cardiac Risk 5.1 (Less than 4.5); Chloride 104 mmol/L (98-107); Cholesterol 117 mg/dl (< 200 Desired); Estimated GFR-MDRD Greater than 90; Glucose 78 mg/dL (70-105); HDL Cholesterol 23 mg/dL (>60 Neg Risk); LDL Cholesterol, Calculated 49 mg/dL; Potassium 3.5 mmol/L (3.5-5.1); Sodium 139 mmol/L (136-145); Triglycerides 226 mg/dL (Less than 150)
[2018-08-18] MEDS ORDERED: Levothyroxine 175 MCG TAB PO SCH (06:00)
--- NOTE | 2018-08-18 06:44 | PDOC.CTH ---
Cardiology Progress Note - Subjective Feels much better. No CP - Objective Vital Signs Temp Pulse Resp BP BP Pulse Ox 08/18/18 04:00 97.5 F L 85 16 124/86 94 L 08/18/18 00:00 97.8 F 66 12 140/72 94 L 08/17/18 21:33 89 20 08/17/18 20:59 97.5 F L 91 20 139/91 H 93 L 08/17/18 20:19 150/96 H Weight 265 lb 6.4 oz 08/16/18 08/17/18 08/18/18 06:59 06:59 06:59 Intake Total 240 1230 Output Total 525 700 Balance -285 530 - Physical Examination General/Neuro: alert & oriented x3, NAD Neck: carotid US brisk, no JVD present Lungs: unlabored respirations Heart: PMI normal, RRR Abdomen: NT/ND, soft Extremities: + femoral B - Telemetry Telemetry Rhythm: SR - Labs Result Diagrams: 08/18/18 04:23 08/18/18 04:23 Troponin/CKMB Troponin I Less than 0.010 ng/mL (< 0.028) 08/17/18 02:03 - Assessment/Plan Severe CAD s/p stent to RCA Occlused OMB with collaterals Pt stable Occluded OMB chronic with good collaterals The RCA appeared subacute with <50% stenosis of the LAD EF very difficult to quantify via echo. Nuclear study with EF 55% ASA, plavix
--- NOTE | 2018-08-18 08:11 | CON ---
DATE OF CONSULTATION: 08/17/2018 HISTORY OF PRESENT ILLNESS: This is a 47-year-old gentleman with a history of type 2 diabetes, NSTEMI, and epilepsy, who presented to the [facility] emergency room yesterday with complaint of left-sided chest pain. The pain was mostly sharp in nature, however, he stated that he also had pressure-like pain as well. EKG in [facility] yesterday was reassuring and troponins were negative. Due to risk factors, the patient was transferred to this facility for further monitoring. Upon arrival here, he had negative troponin x3 with reassuring EKG, no ST changes, T wave inversion in lead II. His previous chest pain has since resolved with only periodic cramp type pain. In March of this year, the patient was admitted with status epilepticus and did have elevated troponins up to 13.8. Since admission, his vital signs have been normal. REVIEW OF SYSTEMS: GENERAL: The patient denies fever or chills. CARDIOVASCULAR: The patient complains of periodic, sharp, crampy left-sided chest pain with previous pressure-like chest pain. Denies feeling palpitations. RESPIRATORY: Denies shortness of breath or cough. GI: Denies nausea, vomiting, or diarrhea. EXTREMITIES: Denies edema. NEUROLOGIC: Denies weakness in extremities or numbness in extremities. ALLERGIES: NO KNOWN DRUG ALLERGIES. SOCIAL HISTORY: Has 8-pack-year history, however, quit 1 year ago. No alcohol or recreational drugs. FAMILY HISTORY: Father of MS at 47 years old. Mother of an MS at 61 years old. PAST MEDICAL HISTORY: History of epilepsy, history of NSTEMI, lupus, type 2 diabetes, hypothyroid, dyslipidemia. SURGICAL HISTORY: Trach and PEG, which have since been reversed. LABORATORY DATA: Troponins negative x3. White count 10.3, hemoglobin 16.1, hematocrit 48.3, and platelets 330. D-dimer negative at 0.27. Chemistry; sodium 142, potassium 4.0, chloride 107, carbon dioxide 27, creatinine 1.07, glucose 99 , calcium 9.4, bilirubin 0.4, AST 12, ALT 17, alkaline phosphatase 85, total protein 7.0, albumin 4.0. PHYSICAL EXAMINATION: VITAL SIGNS: Temperature 97.8, pulse 83, respiratory rate 16, O2 saturation 95% on room air, blood pressure 145/92. GENERAL: The patient is alert and oriented x4, in no acute distress. HEENT: Normocephalic and atraumatic. CARDIOVASCULAR: Regular rate and rhythm. No murmur. No peripheral edema. RESPIRATORY: Clear to auscultation bilaterally. ABDOMEN: Nondistended, nontender. Normal bowel sounds. NEUROLOGIC: No focal neurological deficits. ASSESSMENT: 1. Left-sided chest pain. 2. Type 2 diabetes. 3. Epilepsy. 4. Hypothyroidism. PLAN: Given the patient's significant family history and risk factors, plan for left heart catheterization today. Pending results of catheterization, we will adjust medications and/or add additional medications. Procedure was discussed with the patient to include risks and benefits. All questions were answered. The patient consents for the plan. The patient was seen and plan was discussed with Dr. Valadez. Job ID: [id number] [facility]
[2018-08-18] MEDS ORDERED: Atorvastatin Calcium 40 MG TAB PO SCH (09:00)
[2018-08-18] MEDS ORDERED: Clopidogrel Bisulfate 75 MG TAB PO SCH (09:00)
[2018-08-18] MEDS ORDERED: Aspirin 325 mg Enteric Coated Tablet PO SCH ×2 (09:00)
[2018-08-18] MEDS ORDERED: Aspirin 81 mg Enteric Coated Tablet PO SCH (09:00)
[2018-08-18] MEDS ORDERED: Enoxaparin Sodium 40 MG/0.4 ML SYRINGE SC SCH (09:00)
[2018-08-18] MEDS: levETIRAcetam 500 MG TAB PO SCH (10:15)
[2018-08-18] MEDS: Carvedilol 6.25 MG TAB PO SCH (11:03)
[2018-08-18] MEDS: Famotidine 20 MG TAB PO SCH (11:03)
[2018-08-18] MEDS: Acetaminophen 325 MG TAB PO PRN (11:04)
[2018-08-18 11:50] VITALS: BP 133/95; TEMP 97.5
--- NOTE | 2018-08-18 12:00 | NM ---
CARDIAC SPECT AT REST WITH GATED IMAGES ONLY: HISTORY: Chest pain, recent placement of stent RADIOPHARMACEUTICAL: 31 mCi technetium 99 M sestamibi injected intravenously FINDINGS: A defect is seen in the inferior wall. This may be due to scar or artifact. Gated SPECT LVEF: 55% Wall motion exam: Normal
--- NOTE | 2018-08-19 15:45 | DIS ---
DATE OF ADMISSION: 08/16/2018 DATE OF DISCHARGE: 08/18/2018 PRIMARY DISCHARGE DIAGNOSES: Coronary artery disease status post stent to right coronary artery, occluded obtuse marginal with collaterals less than 50% stenosis of left anterior descending. Echo with 2D Doppler done showed mild mitral regurgitation, poor endocardial definition for evaluating EF. Cardiac SPECT at rest with gated images done showed EF of 55% with normal wall motion. There was a defect seen in the inferior wall could be due to scar or artifact. Hemoglobin and hematocrit 15 and 47, platelet count 310, total cholesterol 117, triglycerides 226, LDL 49, BUN 10, creatinine 0.7. Troponin x3 was negative. Urine tox screen was positive for marijuana. INPATIENT CONSULT: Dr. Valadez for Cardiology. DISCHARGE PLAN: The patient to follow up with primary care physician in [address] Valadez as advised. DISCHARGE MEDICATIONS: 1. Aspirin 81 mg p.o. daily. 2. Plavix 75 mg p.o. daily. 3. Lipitor 40 mg p.o. daily. 4. Coreg 6.25 mg p.o. twice daily. 5. Avapro 150 mg p.o. daily. 6. Keppra 500 mg p.o. twice daily. 7. Synthroid 175 mcg p.o. daily. 8. Metformin 500 mg p.o. q.a.m. ALLERGIES: NO KNOWN DRUG ALLERGIES. BRIEF COURSE DURING HOSPITALIZATION: The patient initially came to ER with complaints of exertional chest pains. He had multiple risk factors for coronary artery disease. The patient was placed on telemetry under observation status and has had three sets of troponin done which were all negative. In view of multiple risk factors and very strong family history, the patient has had consultation with Dr. Valadez. He has had cardiac catheterization done. The findings are described above. The patient had stent placed to RCA. Mr. Reyes had an echo with 2D Doppler done, which had poor endocardial definition and nuclear scan was obtained to see for ejection fraction. The SPECT images revealed ejection fraction of 55%. His medications were optimized. The patient was counseled with regard to medication compliance and dietary compliance. He needs to follow up with Dr. Valadez as advised and primary care physician in 1 week. Please note, I have seen and examined the patient on the day of discharge. Job ID: [id number] [facility] [place]
== END 2018-08-18 15:00 | disposition home or self-care (01) ==
LOC: ERS 19:40 → 2SW 23:44
PROVIDERS: ADMIT Hospitalist; ATTEND Hospitalist
PROC: 027034Z Dilation of Coronary Artery, One Artery with Drug-eluting Intraluminal Device, Percutaneous Approach (ICD-10-PCS; principal; 2018-08-17)
PROC: 4A023N7 Measurement of Cardiac Sampling and Pressure, Left Heart, Percutaneous Approach (ICD-10-PCS; 2018-08-17)
PROC: B2111ZZ Fluoroscopy of Multiple Coronary Arteries using Low Osmolar Contrast (ICD-10-PCS; 2018-08-17)
DX: I25.10 Atherosclerotic heart disease of native coronary artery without angina pectoris (principal); I25.82 Chronic total occlusion of coronary artery; R07.2 Precordial pain; G40.909 Epilepsy, unspecified, not intractable, without status epilepticus; I25.2 Old myocardial infarction; E11.9 Type 2 diabetes mellitus without complications; E03.9 Hypothyroidism, unspecified; E78.5 Hyperlipidemia, unspecified; F90.9 Attention-deficit hyperactivity disorder, unspecified type; Z87.891 Personal history of nicotine dependence; Z79.82 Long term (current) use of aspirin; Z79.84 Long term (current) use of oral hypoglycemic drugs; Z79.899 Other long term (current) drug therapy; Z88.0 Allergy status to penicillin; Z88.2 Allergy status to sulfonamides; Z88.5 Allergy status to narcotic agent
CPT/HCPCS: 36415; 36416; 76942; 78451; 80048; 80061; 80306; 80307; 84484; 85025; 85347; 92928; 93306; 93454; 94640; 94760; 96361; 96365; 96375; 99152; A9500; C1725; C1760; C1769; C1874; C1887; C9600; G0378; J0153; J1644; J1953; J2250; J2270; J3010

== ENCOUNTER 2018-11-09 21:33 | Observation (INO) | payer SELFPAY ==
[2018-11-09] MEDS ORDERED: levETIRAcetam 500 MG TAB PO SCH (23:45)
[2018-11-10 00:12] VITALS: BMI 35.0
[2018-11-10] MEDS ORDERED: Aspirin 325 MG TAB PO SCH (00:15)
[2018-11-10 02:09] LABS: Troponin I Less than 0.010 ng/mL (< 0.028)
[2018-11-10] MEDS ORDERED: Acetaminophen 325 MG TAB PO PRN (02:15)
[2018-11-10] MEDS ORDERED: Ondansetron PF 4 MG/2 ML Vial IVP PRN (02:15)
[2018-11-10] MEDS ORDERED: PROVENTIL INHALER 6.7 G (200 INHALATIONS) INH PRN ×2 (02:16→15:15)
--- NOTE | 2018-11-10 03:45 | HP ---
CHIEF COMPLAINT: Chest pain/left shoulder pain. HISTORY OF PRESENT ILLNESS: Mr. Reyes is a 47-year-old male with past medical history significant for recently diagnosed coronary artery disease in July 2018, status post PTCA and stenting of the RCA, and chronic total occlusion of the OM with preserved EF, seizure disorder, type 2 diabetes mellitus, lupus, who presented to the ER in [place] with complaints of chest pain and left shoulder pain. The patient states pressure in his chest that is off and on. His shoulder pain does seem to be musculoskeletal in nature and is reproducible with particular movements of the left arm. Upon further discussion, however, it appears that the patient has had some worsening shortness of breath and dizziness with exertion that has been ongoing since his last hospitalization. He does report that on one instance he lost consciousness after walking on his treadmill. He is unclear if this was possible seizure activity secondary to his known seizure disorder or ronnie syncopal event. He did not seek medical care at that time. He tells me that he has not followed up with his primary director of conservation since his hospitalization in July, but has tried to participate in cardiac rehab. Upon my interview, the patient is agitated and somewhat depressed regarding his chronic health issues and diagnoses. He did threaten to leave AMA at one point during my interview. Workup thus far has included an EKG, which shows sinus rhythm, no acute ST or T-wave changes, although the patient did have occasional PVCs noted. His serial troponin has been negative. His chest x-ray showed no active intrathoracic disease. Prior cardiac workup has included a left heart catheterization in July of this year as mentioned. At that time, a stent was placed to the RCA. He was found to have a chronic total occlusion of the OM, and a 45% nonocclusive lesion in the LAD. He has been compliant with his dual anti-platelet therapy. He had an EF of 55% per SPECT imaging during that hospitalization. REVIEW OF SYSTEMS: A 12-point review of systems performed and is negative except as stated above. PAST MEDICAL HISTORY: COPD, coronary artery disease as described above, hypothyroidism, lupus, type 2 diabetes mellitus, hyperlipidemia, and also notable for hospitalization in March of this year, where patient had a seizure, with subsequent vomiting and then development of aspiration pneumonia, which did require intubation. PAST SURGICAL HISTORY: PTCA and stenting as outlined above, remote history of trach and PEG tube placement with reversals. SOCIAL HISTORY: The patient is a former one pack per day smoker for nearly 8 years, but quit about a year ago. He does use marijuana occasionally. No alcohol use. FAMILY HISTORY: His father of a massive [place] at the age of 47, his mother also had an [place] and at the age of 61. ALLERGIES: PENICILLIN, SULFA, CODEINE, GEODON. HOME MEDICATIONS: 1. Albuterol inhaler p.r.n. 2. Aspirin 81 mg daily. 3. Atorvastatin 40 mg p.o. at bedtime. 4. Carvedilol 6.25 mg p.o. b.i.d. 5. Plavix 75 mg daily. 6. Gabapentin 300 mg p.o. b.i.d. 7. Irbesartan 950 mg p.o. daily. 8. Keppra 500 mg p.o. daily. 9. Levothyroxine 150 mcg p.o. daily. 10. Metformin 500 mg p.o. q.a.m. with meals. 11. Prednisone 10 mg p.o. daily. 12. Sulfasalazine 500 mg p.o. b.i.d. PHYSICAL EXAMINATION: VITAL SIGNS: Blood pressure 110/70, pulse is 67, O2 saturation is 94% on room air, respirations 16, temperature 97.6. GENERAL: This patient is a moderately obese male, resting comfortably in bed, in no acute distress. HEENT: Head is atraumatic and normocephalic. Mucous membranes are moist. NECK: Trachea is midline. No JVD. CV: S1 and S2. Regular rate and rhythm. No appreciable murmurs, rubs, or gallops. LUNGS: Regular respiratory rate and pattern. Occasional rhonchi noted. Otherwise clear. ABDOMEN: Positive bowel sounds. Mildly protuberant, nontender. EXTREMITIES: No edema. SKIN: Warm and dry. NEUROLOGIC: Nonfocal. LABORATORY DATA: Troponin is negative x3. White blood cell count 14, hemoglobin 16.3, hematocrit 48.6, platelet count is 319. Sodium 137, potassium 3.9, chloride 101, BUN is 14, creatinine 0.81, AST 14, ALT 18, alkaline phosphatase 75. BNP was negative. ASSESSMENT: 1. Chest pain/left shoulder pain, acute coronary syndrome ruled out. 2. Exertional shortness of breath/dizziness and one episode of seizure versus syncope while on treadmill. 3. Recently diagnosed coronary artery disease with left heart catheterization on 08/17/2018; status post percutaneous transluminal coronary angioplasty and stent of the RCA, 100% chronic total occlusion of the OM with collaterals. 4. Type 2 myocardial infarction, March 2018. 5. Type 2 diabetes mellitus. 6. Hypertension. 7. Seizure disorder with admission in March 2018 after seizure resulted in aspiration pneumonia and intubation. 8. Anxiety and depression. 9. Hypothyroidism. 10. Premature ventricular contractions. 11. Lupus. PLAN: Although I feel that the patient's left shoulder pain is likely musculoskeletal in nature, he has had intermittent chest pressure along with exertional shortness of breath, dizziness, and a questionable episode of syncope versus seizure. We will consult the patient's primary director of conservation, Dr. Valadez for further recommendations or medication optimization as far as his antianginals. We have consulted Spiritual and Palliative care given the patient's difficulty in dealing with his chronic medical comorbidities. He did threaten to leave AMA during my interview and has been notably agitated. We will continue dual anti-platelet therapy, his statin, and other home medications. We will observe the patient overnight and consult his director of conservation in the morning as mentioned. Further recommendations based on hospital course. Job ID: [id number]
[2018-11-10] MEDS ORDERED: Levothyroxine 150 MCG TAB PO SCH (06:00)
--- NOTE | 2018-11-10 07:53 | CON ---
DATE OF CONSULTATION: REASON FOR CONSULTATION: Atypical chest pain. HISTORY OF PRESENT ILLNESS: Mr. Reyes is a 47-year-old gentleman with previous history of CAD, status post stent placement in right coronary artery in July of 2018. He also had residual 100% chronic occlusion to the circumflex artery. Mr. Reyes is a vague historian. He does state he has had arm pain as is his presenting symptom. This is different than his previous pain noted prior to a stent implantation. After stent implantation, he states his symptoms markedly improved. At this point, Mr. Reyes's main symptom is arm pain. This can occur at rest and with stress. It was very difficult to try and pin Mr. Reyes down on whether this is truly related to movement. He did have difficulty with pointed questions. No shortness of breath, nausea, vomiting, or associated symptoms are present. PAST MEDICAL HISTORY: CAD, status post stent placement; seizure disorder; hypertension; diabetes mellitus; hypothyroidism; continued marijuana use, and lupus. ALLERGIES: CODEINE AND PENICILLIN. REVIEW OF SYSTEMS: A 10-point review of systems is reviewed as above, otherwise negative. PHYSICAL EXAMINATION: GENERAL: Patient is a pleasant male who is in no acute distress. The patient appears their stated age. VITAL SIGNS: Blood pressure 118/57, pulse 64, and temperature 97.6. NEUROLOGIC: The patient is alert and oriented x3 with no focal neurologic deficits. HEENT: Sclerae without icterus. Mouth has moist mucous membranes with normal pallor. NECK: No JVD. Carotid upstroke brisk. No bruits bilaterally. LUNGS: Clear to auscultation with unlabored respirations. BACK: No scoliosis or kyphosis. CARDIAC: Regular rate and rhythm with normal S1 and S2. No S3 or S4 noted. No significant rubs, murmurs, thrills, or gallops noted throughout the precordium. PMI is not displaced. There is no parasternal heave. ABDOMEN: Soft, nontender, nondistended. No peritoneal signs present. No hepatosplenomegaly. No abnormal striae. EXTREMITIES: 2+ femoral and 2+ dorsalis pedis pulses. No cyanosis, clubbing, or edema. SKIN: No gross abnormalities. LABORATORY DATA: Troponin negative. Hemoglobin stable. Creatinine 0.8. IMPRESSION: 1. Atypical chest pain. 2. Coronary artery disease. 3. Diabetes mellitus. 4. Hypertension. RECOMMENDATIONS: Given the fact it is very difficult to get a specific history from Mr. Reyes. We therefore recommend a noninvasive stress study. After reviewing his chart, he has not had a noninvasive stress study in the past. This would likely be a 2-day protocol given his weight of 240 pounds. We would anticipate having scar present to the lateral wall. If he has ischemia to the inferior wall, may need repeat angio on Tuesday. Otherwise, we would recommend treatment with nitroglycerin. We will add Imdur 30 mg q.a.m. Continue aspirin, carvedilol, and Plavix. Job ID: [id number]
[2018-11-10] MEDS ORDERED: predniSONE 20 MG TAB PO SCH (08:00)
[2018-11-10] MEDS ORDERED: Carvedilol 6.25 MG TAB PO SCH (08:00)
[2018-11-10] MEDS ORDERED: metFORMIN 500 MG TAB PO SCH (08:00)
[2018-11-10] MEDS ORDERED: sulfaSALAzine 500 MG TAB PO SCH (08:00)
[2018-11-10 08:35] LABS: #Basophils 0.1 thou/uL (0.0-0.2); #Eosinphils 0.3 thou/uL (0.0-0.7); #Lymphocytes 3.9 thou/uL (1.20-3.40); #Neutrophils 5.8 thou/uL (1.40-6.50); %Basophils 0.9 % (0.0-1.0); %Eosinophils 2.5 % (0.0-10.0); %Lymphocytes 34.7 % (21.0-51.0); %Monocytes 9.2 % (0.0-10.0); %Neutrophils 52.6 % (42.0-75.0); Hemoglobin 16.4 g/dL (14.0-18.0); Mean Corpuscular HGB CONC 34.5 g/dL (32.0-36.0); Mean Corpuscular Hemoglobin 32.2 pg (27.0-31.0); Mean Corpuscular Volume 93.3 fL (78.0-98.0); Mean Platelet Volume 6.6 fL (7.4-10.4); Platelet Count 290 thou/uL (130-400); RBC Distribution Width 13.6 % (11.5-14.5); White Blood Cell (WBC) Count 11.1 thou/uL (4.8-10.8)
[2018-11-10 08:42] LABS: Anion Gap 14 mmol/L (10-20); BUN (Urea Nitrogen) 11 mg/dL (8.9-20.6); Calc. Creatinine Clearance 207 mL/min (70-130); Calcium 9.1 mg/dL (7.8-10.44); Carbon Dioxide 23 mmol/L (22-29); Chloride 105 mmol/L (98-107); Estimated GFR-MDRD Greater than 90; Glucose 112 mg/dL (70-105); Potassium 3.8 mmol/L (3.5-5.1); Sodium 138 mmol/L (136-145)
[2018-11-10] MEDS ORDERED: levETIRAcetam 500 MG TAB PO SCH (09:00)
[2018-11-10] MEDS ORDERED: Losartan 25 MG TAB PO SCH (09:00)
[2018-11-10] MEDS ORDERED: Isosorbide Mononitrate (ER) 30 MG TAB PO SCH (09:00)
[2018-11-10] MEDS ORDERED: Clopidogrel Bisulfate 75 MG TAB PO SCH (09:00)
[2018-11-10] MEDS ORDERED: Gabapentin 300 MG CAP PO SCH (09:00)
[2018-11-10] MEDS ORDERED: Aspirin 81 mg Enteric Coated Tablet PO SCH (09:00)
[2018-11-10] MEDS ORDERED: Famotidine 20 MG TAB PO SCH (09:00)
[2018-11-10 14:13] VITALS: TEMP 98.5
[2018-11-10 14:21] VITALS: BP 121/80
--- NOTE | 2018-11-10 14:26 | NM ---
Radionucleotide stress and rest myocardial perfusion scan with CT attenuation correction and SPECT im aging Left ventricular wall motion evaluation and ejection fraction HISTORY: Chest pain. Hypertension. FINDINGS: Dean protocol. Total test time 6:17. Heart rate 160 bpm. There is heterogeneous uptake of radiotracer throughout the left ventricular myocardium. Large area o f diminished uptake at the inferior wall is unchanged from the stress to the rest images and is improved upon CT attenuation correction. Favored to be diaphragmatic attenuation. QGS analysis of gated SPECT images shows no focal wall motion abnormalities. 3 times a day 0.94. LHR 31%. Ejection fraction calculated at 53%. IMPRESSION: Normal myocardial perfusion scan showing no evidence of ischemia. Borderline left ventricular ejection fraction of 53%.
[2018-11-10] MEDS ORDERED: Atorvastatin Calcium 40 MG TAB PO SCH (21:00)
--- NOTE | 2018-11-14 13:17 | STRESS ---
Acquisition Time: 2018-11-10 12:21:46 Total Exercise Time: 00:06:17 Test Indications: CHEST PAIN Medications: Protocol: SADIA Max HR: 160 BPM 92% of Pred: 173 BPM Max BP: 136/090 mmHG Max Work Load: 7.8 METS RESTING ECG: NORMAL SINUS RHYTHM AT 86 BPM SYMPTOMS: DYSPNEA ON EXERTION NORMAL BLOOD PRESSURE RESPONSE ECTOPY: NONE ECTOPY: NO SIGNIFICANT CHANGES INTERPRETATION: NEGATIVE ECG/AWAIT NUCLEAR IMAGES FOR DEFINITIVE DIAGNOSIS Confirmed by SUJATA VILLALOBOS ([id number]), television news video editor CLARISSA MENSAH ([id number]) on 11/14/2018 1:17:21 PM Referred By: Bashir ANSARI Confirmed By:SUJATA VILLALOBOS
== END 2018-11-10 16:45 | disposition home or self-care (01) ==
LOC: ERS 21:33 → 2SW 22:15
PROVIDERS: ADMIT Family Medicine; ATTEND Family Medicine
DX: R07.89 Other chest pain (principal); M25.512 Pain in left shoulder; I25.10 Atherosclerotic heart disease of native coronary artery without angina pectoris; I25.82 Chronic total occlusion of coronary artery; G40.909 Epilepsy, unspecified, not intractable, without status epilepticus; E11.9 Type 2 diabetes mellitus without complications; J44.9 Chronic obstructive pulmonary disease, unspecified; E03.9 Hypothyroidism, unspecified; E78.5 Hyperlipidemia, unspecified; M32.9 Systemic lupus erythematosus, unspecified; I25.2 Old myocardial infarction; F41.9 Anxiety disorder, unspecified; F32.9 Major depressive disorder, single episode, unspecified; E78.00 Pure hypercholesterolemia, unspecified; Z87.891 Personal history of nicotine dependence; Z79.02 Long term (current) use of antithrombotics/antiplatelets; Z79.52 Long term (current) use of systemic steroids; Z79.82 Long term (current) use of aspirin; Z79.84 Long term (current) use of oral hypoglycemic drugs; Z79.899 Other long term (current) drug therapy; Z88.0 Allergy status to penicillin; Z88.2 Allergy status to sulfonamides; Z88.5 Allergy status to narcotic agent; Z88.8 Allergy status to other drugs, medicaments and biological substances; Z95.5 Presence of coronary angioplasty implant and graft
CPT/HCPCS: 36415; 36416; 78452; 80048; 84484; 85025; 93017; 94640; A9500; G0378; J7512; J7620

== ENCOUNTER 2018-11-20 20:01 | Observation (INO) | payer SELFPAY ==
--- NOTE | 2018-11-20 20:45 | CT ---
CT Brain WO Con History: Seizure. Fall. Comparison: CT brain March 2018 Findings: No acute hemorrhage or infarct. No midline shift or mass effect. Ventricular size and extra -axial CSF spaces are unchanged. Paranasal sinuses and mastoids are clear. Impression: No acute intracranial abnormality.
--- NOTE | 2018-11-20 20:47 | CT ---
CT Cervical Spine WO Con History: Seizure. Comparison: None. Findings: The occipital condyles are intact. The odontoid process is intact. No acute fracture or mal alignment of the cervical spine. No acute traumatic facet joint widening. Transverse processes are intact. Visualized posterior ribs are intact. Lung apices are clear. Impression: No acute fracture or malalignment of the cervical spine.
[2018-11-20] MEDS ORDERED: Acetaminophen 500 MG TAB ONE (20:54)
[2018-11-20 21:00] LABS: ALT (SGPT) 21 U/L (8-55); AST (SGOT) 19 U/L (5-34); Albumin 4.6 g/dL (3.5-5.0); Alkaline Phosphatase 83 U/L (40-150); Anion Gap 17 mmol/L (10-20); BUN (Urea Nitrogen) 9 mg/dL (8.9-20.6); Bilirubin, Total 0.7 mg/dL (0.2-1.2); Calc. Creatinine Clearance 0 mL/min (70-130); Calcium 9.6 mg/dL (7.8-10.44); Carbon Dioxide 21 mmol/L (22-29); Chloride 101 mmol/L (98-107); Estimated GFR-MDRD Greater than 90; Globulin 3.4 g/dL (2.4-3.5); Glucose 86 mg/dL (70-105); Potassium 3.7 mmol/L (3.5-5.1); Sodium 135 mmol/L (136-145)
[2018-11-20] MEDS ORDERED: Lorazepam 2 MG/ML VIAL ONE (21:03)
[2018-11-20 21:06] LABS: Lymphocytes 23 % (21-51); MDiff Complete? YES; Mean Corpuscular HGB CONC 34.9 g/dL (32.0-36.0); Mean Corpuscular Volume 91.8 fL (78.0-98.0); Mean Platelet Volume 6.5 fL (7.4-10.4); Monocytes 8 % (0-10); Neutrophil 69 % (42-75); Platelet Count 361 thou/uL (130-400); Platelet Morphology Comment Appears Adequate; RBC Distribution Width 13.2 % (11.5-14.5); Red Blood Cell (RBC) Count 5.63 mill/uL (4.70-6.10); White Blood Cell (WBC) Count 20.6 thou/uL (4.8-10.8)
[2018-11-20] MEDS ORDERED: Adacel (T-DAP) 0.5 ML SYRINGE ONE (21:56)
[2018-11-20 22:30] LABS: Bacteria/HPF None Seen HPF (None Seen); Bilirubin Negative (Negative); Blood, Urine Trace (Negative); Clarity Clear (Clear); Glucose, Urine (Dipstick) Normal (Negative); Leukocyte Negative Leu/uL (Negative); Nitrite Negative (Negative); Protein, Urine (Dipstick) 70 mg/dL (Neg-Trace); RBC/HPF 0-3 HPF (0-3); Squamous Epithelial None Seen HPF (0-3); Urobilinogen Normal mg/dL (Less than 2); WBC/HPF 0-3 HPF (0-3)
[2018-11-20] MEDS ORDERED: Ondansetron PF 4 MG/2 ML Vial ONE (22:33)
--- NOTE | 2018-11-20 23:25 | CT ---
CT Facial Bones WO Con History: Fall. Seizure. Comparison: None. Findings: Right periorbital soft tissue swelling. The globes are intact. No retrobulbar hematoma Right forehead soft tissue swelling. Nasal bones are intact. Normal location of the temporomandibular joints. Multiple dental cavities. Maxilla is intact. Pterygoid plates are intact. Zygoma, zygomatic arches, medial orbital ye, lateral orbital ye, orbital floors, orbital roofs are intact. Impression: Right periorbital soft tissue contusion without fracture of the face.
[2018-11-20 23:33] LABS: Acetaminophen Less than 6.0 mcg/mL (10.0-30.0); Alcohol Less than 10 mg/dL (Less than 10); Salicylate Less than 8.0 mg/dL (15.0-30.0)
[2018-11-20 23:35] LABS: Amphetamine Not Detected (NotDetected); Barbiturates Screen Not Detected (NotDetected); Benzodiazepine Screen Not Detected (NotDetected); Cocaine Metabolite Screen Not Detected (NotDetected); Medtox Control Line Valid? VALID (VALID); Medtox Reader # READER 1; Methadone Not Detected (NotDetected); Methamphetamine Not Detected (NotDetected); Opiate Screen Not Detected (NotDetected); Oxycodone Screen Not Detected (NotDetected); Phencyclidine (PCP) Not Detected (NotDetected); THC/Cannabinoid Screen Detected (NotDetected); Tricyclic Screen Not Detected (NotDetected)
[2018-11-20 23:46] LABS: CKMB 3.5 ng/mL (0-6.6)
[2018-11-21 00:52] LABS: CKMB 3.9 ng/mL (0-6.6)
[2018-11-21 00:56] VITALS: BMI 34.8
[2018-11-21] MEDS ORDERED: Gabapentin 300 MG CAP PO PRN (01:45)
[2018-11-21] MEDS ORDERED: Ondansetron ODT 4 MG TAB PO PRN (01:54)
[2018-11-21] MEDS ORDERED: Ondansetron PF 4 MG/2 ML Vial IVP PRN (01:54)
[2018-11-21] MEDS ORDERED: levETIRAcetam 500 MG TAB PO SCH ×3 (02:00→21:00)
[2018-11-21] MEDS ORDERED: Morphine 2 MG/ML SYRINGE SLOW IVP SCH (02:00)
[2018-11-21] MEDS: Sodium Chloride 0.9% 1,000 ML IV SCH ×2 (02:09→12:06)
[2018-11-21] MEDS ORDERED: HumaLOG 300 UNITS/3 ML VIAL SC PRN ×2 (02:19)
[2018-11-21] MEDS ORDERED: Dextrose 50% Abboject 50 ML SYRINGE SLOW IVP PRN (02:19)
[2018-11-21] MEDS ORDERED: Dextrose 5% in Water 1,000 ML IV PRN (02:19)
[2018-11-21 02:44] LABS: #Basophils 0.1 thou/uL (0.0-0.2); #Eosinphils 0.2 thou/uL (0.0-0.7); #Lymphocytes 4.3 thou/uL (1.20-3.40); #Monocytes 1.6 thou/uL (0.11-0.59); #Neutrophils 8.3 thou/uL (1.40-6.50); %Basophils 0.7 % (0.0-1.0); %Eosinophils 1.3 % (0.0-10.0); %Lymphocytes 29.6 % (21.0-51.0); %Monocytes 10.8 % (0.0-10.0); %Neutrophils 57.6 % (42.0-75.0); Hemoglobin 16.7 g/dL (14.0-18.0); Mean Corpuscular HGB CONC 34.5 g/dL (32.0-36.0); Mean Corpuscular Hemoglobin 31.8 pg (27.0-31.0); Mean Corpuscular Volume 92.3 fL (78.0-98.0); Mean Platelet Volume 6.7 fL (7.4-10.4); Platelet Count 307 thou/uL (130-400); RBC Distribution Width 13.2 % (11.5-14.5); Red Blood Cell (RBC) Count 5.23 mill/uL (4.70-6.10); White Blood Cell (WBC) Count 14.4 thou/uL (4.8-10.8)
[2018-11-21 02:56] LABS: Troponin I 0.094 ng/mL (< 0.028)
[2018-11-21 03:07] LABS: Anion Gap 15 mmol/L (10-20); BUN (Urea Nitrogen) 7 mg/dL (8.9-20.6); CK (CPK) 415 U/L (30-200); Calc. Creatinine Clearance 209 mL/min (70-130); Carbon Dioxide 21 mmol/L (22-29); Chloride 105 mmol/L (98-107); Estimated GFR-MDRD Greater than 90; Glucose 93 mg/dL (70-105); Potassium 3.5 mmol/L (3.5-5.1); Sodium 137 mmol/L (136-145)
--- NOTE | 2018-11-21 03:26 | HP ---
PRIMARY CARE PHYSICIAN: [facility] [place]. CHIEF COMPLAINT: Seizure activity and syncope. HISTORY OF PRESENT ILLNESS: Mr. Reyes is a 47-year-old male with past medical history significant for seizure disorder, coronary artery disease diagnosed in July 2018 status post PTCA and stenting of the RCA, and chronic total occlusion of the OM with preserved EF, recent stress test two weeks ago showing normal EF and no reversible ischemia, lupus on chronic steroid therapy, and hypertension, who presented to the hospital after having a syncopal episode and what he feels to be was seizure activity. The patient had been in his usual state of health up until this morning. He has been walking on a treadmill daily, and did so today. He began feeling what he describes as tremulous and feeling as if he might have a seizure , which he has experienced many times before. He did have some blueberries and oatmeal, but continued to feel poorly. He has no recollection of the seizure event or details surrounding his syncope. However, there was some blood found in the bathroom, and the patient does have hematoma and abrasion to his right forehead and eye, along with abrasions on his lip. His daughter lives next door, and apparently he went to go and try to find her although he cannot remember this either, and stumbled back into his own house, damaging some bushes nearby. She found him on the couch and what she describes as a postictal state. The patient has had no chest pain or shortness of breath or issues on the treadmill. He denies any cardiac symptoms at this time. On arrival to the emergency department, the patient had a brain CT along with CT of the cervical spine and facial bones, which was all negative. His troponin has been indeterminate. His EKG shows normal sinus rhythm. No ischemic or dynamic ST or T-wave changes. At the time of my interview, he is alert and oriented x3, and back to his baseline. He has no complaints to me at this time aside from pain from his right eye and lip. He also states that he has an abrasion to his tongue. There was no loss of bowel or bladder. The patient was recently admitted to this facility with some complaints of chest pain and left shoulder pain. He was seen in consultation at that time with Dr. Valadez, who did order a nuclear stress test. As mentioned, his nuclear stress test was negative for any reversible ischemia and did reveal normal left ventricular systolic function. He has been compliant with his home medications of aspirin, Plavix, and his antiseizure medicines as well. REVIEW OF SYSTEMS: A 12-point review of systems performed and is negative except that stated above. PAST MEDICAL HISTORY: 1. COPD, coronary artery disease diagnosed July 2018, left heart catheterization showing severe stenosis of the RCA status post PTCA and stent, chronic total occlusion of the OM, and a 45% nonocclusive lesion in the LAD, he does have preserved EF. 2. Hypothyroidism. 3. Lupus. 4. Type 2 diabetes mellitus. 5. Hyperlipidemia. 6. Seizure disorder, which resulted in hospitalization in March of this year, where patient had some vomiting and aspiration pneumonia, which did require intubation after a seizure. PAST SURGICAL HISTORY: PTCA and stenting as outlined above, remote history of trach and PEG tube placement with reversals. SOCIAL HISTORY: The patient is a former one-pack per day smoker for nearly 8 years, but did quit a year ago and has been successful in that. He had been using marijuana fairly regularly up until about 3 weeks ago and states that he has completely stopped 3 weeks ago. No alcohol use. FAMILY HISTORY: Positive for massive [place] in his father, who at the age of 47. His mother also had an RI and at the age of 61. ALLERGIES: PENICILLIN, SULFA, CODEINE, AND GEODON. HOME MEDICATIONS: 1. Albuterol inhaler 2 puffs inhaled q.6 hours p.r.n. 2. Metformin 500 mg daily q.a.m. with meals. 3. Aspirin 81 mg daily. 4. Atorvastatin 40 mg p.o. at bedtime. 5. Carvedilol 6.25 mg p.o. b.i.d. 6. Plavix 75 mg p.o. daily. 7. Gabapentin 300 mg p.o. daily. 8. Irbesartan 150 mg p.o. daily. 9. Imdur 30 mg p.o. daily. 10. Keppra 500 mg tablet one tablet p.o. b.i.d. 11. Levothyroxine 150 mcg p.o. daily. 12. Prednisone 10 mg tablet one tablet daily. 13. Sulfasalazine 500 mg tablet one tablet p.o. b.i.d. PHYSICAL EXAMINATION: VITAL SIGNS: Blood pressure 118/80, pulse 89, O2 saturation is 93% on room air, respirations 20, temperature 98.1. GENERAL: The patient is a moderately obese male, resting comfortably in bed, in no respiratory distress. HEENT: The patient has notable ecchymosis and edema in the right periorbital area. He also has an abrasion and superficial plaque on his bottom lip. NECK: Trachea is midline. No JVD. CV: S1 and S2. Regular rate and rhythm. No appreciable murmurs, rubs, or gallops. LUNGS: Regular respiratory rate and pattern. Clear to auscultation bilaterally. ABDOMEN: Positive bowel sounds. Soft, nontender, obese. EXTREMITIES: No edema. NEUROLOGIC: Cranial nerves 2 through 12 are grossly intact. The patient is alert and oriented x3. Neuro exam is nonfocal. LABORATORY DATA: White blood cell count 20.6, hemoglobin 18, hematocrit 51.7, platelet count is 361. Sodium 135, potassium 3.7, chloride 101, carbon dioxide 21, anion gap 17, creatinine 0.73, GFR greater than 90, calcium 9.6, AST 19, ALT 21 , alk phosphatase 83. Creatine kinase 356. Troponin 0.03 and 0.089 respectively. Urinalysis negative for acute infection. Toxicology, urine drug screen was positive for cannabinoids. ASSESSMENT: 1. Seizure activity/syncope, along with possible postictal state. 2. Known seizure disorder with admission in March 2018 after seizure resulted in aspiration pneumonia and intubation. 3. Indeterminate troponin of unclear significance. The patient had recent normal MPI just two weeks ago. The patient has no cardiac symptoms at this time. 4. Coronary artery disease with left heart catheterization on August 17, 2018, status post PTCA and stent of the RCA, 100% chronic total occlusion of the OM with collaterals, normal MPI November 10, 2018, as mentioned above. 5. Type 2 myocardial infarction, March 2018. 6. Type 2 diabetes mellitus. 7. Hypertension. 8. Anxiety and depression. 9. Hypothyroidism. 10. Lupus on chronic steroid therapy with resulting leukocytosis. 11. Elevated CK in the setting of recent syncopal episode and injury. PLAN: At this time, we will admit the patient for observation and continue telemetry monitoring. From his history and story, this does appear to be a neurogenic cause of syncope at this time. We will obtain an MRI of the brain and consult Neurology for further recommendations. We will continue close telemetry monitoring and if any arrhythmia noted, we will consult Dr. Valadez for consideration of possible loop recorder if Neurology does not deem this to have been a seizure or neurogenic event. We will continue his home medications including dual anti-platelet therapy, his statin, beta vicente, along with his Keppra. Further recommendations based on findings of noninvasive testing and hospital course. Job ID: [id number]
[2018-11-21] MEDS: HYDROcodone/Acetaminophen 5/325 mg Tablet PO PRN ×3 (03:54→17:51)
[2018-11-21 06:00] LABS: Troponin I 0.071 ng/mL (< 0.028)
[2018-11-21] MEDS ORDERED: Levothyroxine 150 MCG TAB PO SCH ×2 (06:00→09:00)
[2018-11-21] MEDS: Carvedilol 6.25 MG TAB PO SCH ×2 (08:53→17:51)
[2018-11-21] MEDS ORDERED: Aspirin 81 mg Enteric Coated Tablet PO SCH (09:00)
[2018-11-21] MEDS ORDERED: Isosorbide Mononitrate (ER) 30 MG TAB PO SCH (09:00)
[2018-11-21] MEDS ORDERED: Clopidogrel Bisulfate 75 MG TAB PO SCH (09:00)
[2018-11-21] MEDS ORDERED: predniSONE 5 MG TAB PO SCH (09:00)
[2018-11-21] MEDS ORDERED: sulfaSALAzine 500 MG TAB PO SCH (09:00)
--- NOTE | 2018-11-21 10:08 | PDOC.HOSPP ---
- Subjective Encounter Date: 11/21/18 Encounter Time: 09:00 Subjective: Patient states he is feeling slightly better this morning but still having trouble remembering fully what happened last night. Complaining of pain in his left hip and soreness on the side of his chest. States he has not been up and using a bedside urinal. No nausea or vomiting. Denies any headache or blurred vision but does feel sore over right eye at site of contusion. No shortness of breath. No hemoptysis or cough. Reports feeling anxious and previously smoked marijuana for anxiety but quit 2 weeks ago. Denies any other drug use. No alcohol. - Objective Vital Signs & Weight: Vital Signs (12 hours) Temp Pulse Resp BP Pulse Ox 11/21/18 08:35 98.1 F 85 16 100/67 92 L 11/21/18 02:32 98.1 F 84 18 112/73 93 L 11/21/18 00:57 98.1 F 89 20 118/80 93 L Weight Weight 249 lb 11.2 oz I&O: 11/20/18 11/21/18 11/22/18 06:59 06:59 06:59 Intake Total 720 Output Total 450 Balance 270 Result Diagrams: 11/21/18 02:19 11/21/18 02:19 Additional Labs: Accuchecks 11/21/18 11/20/18 05:08 20:31 POC Glucose 93 89 Hospitalist ROS - Review of Systems Constitutional: denies: fever, chills, sweats, weakness, malaise, other Eyes: reports: eyelid inflammation (right eyelid secondary to contusion) ENT: reports: other (swelling/bruising to right lower lip) Respiratory: denies: cough, dry, shortness of breath, hemoptysis, SOB with excertion, pleuritic pain, sputum, wheezing, other Cardiovascular: reports: other (right upper anterior chest wall soreness). denies: chest pain, palpitations, orthopnea, paroxysmal noc. dyspnea, edema, light headedness Gastrointestinal: denies: nausea, vomitting, abdominal pain, diarrhea, constipation, melena, hematochezia, other Genitourinary: denies: dysuria, frequency, incontinence, hematuria, retention, other Musculoskeletal: reports: other (tenderness to left hip, normal ROM). denies: neck pain, shoulder pain, arm pain, back pain, hand pain, leg pain, foot pain Skin: reports: bruising (abrasion to both knees, bruising to right face and right lower lip). denies: rash, lesions, gabrielle, other Neurological: denies: weakness, numbness, incoordination, change in speech, confusion, seizures, other - Medication Medications: Active Medications Generic Name Dose Route Start Last Admin Trade Name Freq PRN Reason Stop Dose Admin Hydrocodone Bitart/Acetaminophen 1 tab 11/21/18 01:54 11/21/18 08:56 [place] 5/325 PO 1 tab Q4H PRN Administration Moderate Pain (4-6) Aspirin 81 mg 11/21/18 09:00 11/21/18 08:53 Ecotrin PO 81 mg DAILY REDDY Administration Carvedilol 6.25 mg 11/21/18 08:00 11/21/18 08:53 Coreg PO 6.25 mg BID-WM REDDY Administration Clopidogrel Bisulfate 75 mg 11/21/18 09:00 11/21/18 08:56 Plavix PO 75 mg DAILY REDDY Administration Sodium Chloride 1,000 mls @ 100 mls/hr 11/21/18 01:03 11/21/18 02:09 Normal Saline 0.9% IV 11/21/18 12:00 1,000 mls .Q10H REDDY Administration Irbesartan 150 mg 11/21/18 09:00 11/21/18 08:53 Avapro PO 150 mg DAILY REDDY Administration Isosorbide Mononitrate 30 mg 11/21/18 09:00 11/21/18 08:56 Imdur Er PO 30 mg DAILY REDDY Administration Levetiracetam 500 mg 11/21/18 09:00 11/21/18 08:53 Keppra PO 500 mg BID REDDY Administration Levothyroxine Sodium 150 mcg 11/21/18 06:00 11/21/18 05:01 Synthroid PO 150 mcg 0600 REDDY Administration Ondansetron HCl 4 mg 11/21/18 01:54 11/21/18 05:01 Zofran Odt PO 4 mg Q6H PRN Administration Nausea/Vomiting Prednisone 10 mg 11/21/18 09:00 11/21/18 08:53 Prednisone PO 10 mg DAILY REDDY Administration Sodium Chloride 10 ml 11/21/18 09:00 11/21/18 08:56 Flush - Normal Saline IVF Not Given Q12HR REDDY Sulfasalazine 500 mg 11/21/18 09:00 11/21/18 09:02 Azulfidine PO 500 mg BID REDDY Administration - Exam General Appearance: NAD, awake alert Eye: PERRL, anicteric sclera ENT - other findings: bruising to right lower lip Neck: supple, symmetric, no JVD, no lymphadenopathy Heart: RRR, no murmur, no gallops Respiratory: CTAB, no wheezes, no rales, no ronchi, normal chest expansion Respiratory - other findings: tender to light palpation right upper chest, guarding, no bone deformity Gastrointestinal: soft, non-tender, non-distended, normal bowel sounds, no guarding, no rigidity Extremities: no cyanosis, no clubbing, no edema Skin: normal turgor, no lesions Neurological: CN's grossly intact, normal sensation to touch Musculoskeletal: normal tone, normal strength, no muscle wasting Psychiatric: normal affect, A&O x 3 Psychiatric - other findings: very anxious Hosp A/P (1) Leukocytosis Code(s): D72.829 - ELEVATED WHITE BLOOD CELL COUNT, UNSPECIFIED Status: Chronic Plan: secondary to chronic steroid use for Lupus. (2) Syncope and collapse Code(s): R55 - SYNCOPE AND COLLAPSE Status: Acute (3) Seizure disorder Code(s): G40.909 - EPILEPSY, UNSP, NOT INTRACTABLE, WITHOUT STATUS EPILEPTICUS Status: Chronic (4) Hypertension Code(s): I10 - ESSENTIAL (PRIMARY) HYPERTENSION Status: Chronic (5) Diabetes mellitus Code(s): E11.9 - TYPE 2 DIABETES MELLITUS WITHOUT COMPLICATIONS Status: Chronic (6) CAD (coronary artery disease) Code(s): I25.10 - ATHSCL HEART DISEASE OF [place] CORONARY ARTERY W/O ANG PCTRS Status: Chronic - Plan MRI brain ordered. Awaiting Neurology consult. Will obtain Pelvic XR, Chest XR and Rt Clavicle XR Walking program Orthostatic BPs. Monitor glucose and continue ISS. Continue IVF given elevated CK. Further recommendations as per Neuro.
--- NOTE | 2018-11-21 10:32 | MRI ---
MRI BRAIN WITHOUT CONTRAST: Date: 11/21/18 HISTORY: Seizure. FINDINGS: Correlation is made with the CT scan from previous day. No restricted diffusion is seen. No evidence of infarct, hemorrhage, midline shift, or abnormal extra -axial fluid collections are seen. The ventricular size is normal and the basilar cisterns are patent . No tonsillar herniation is identified. There is mucus retention cyst versus polyp in the sigmoid si nus. IMPRESSION: No evidence of acute intracranial process. POS: OFF
[2018-11-21] MEDS ORDERED: ISOVUE-370 76%-LOCM 1 ML ONE (10:37)
--- NOTE | 2018-11-21 11:05 | RAD ---
AP PELVIS: HISTORY: Fall. Left hip pain. FINDINGS: No acute fracture or dislocation is identified. POS: OFF
--- NOTE | 2018-11-21 11:05 | RAD ---
PA AND LATERAL CHEST: HISTORY: Injury. Chest pain. COMPARISON: 08/16/2018 FINDINGS: The heart size is normal. The lungs are expanded without focal areas of consolidation, pneumothorace s, or pleural effusions. No acute osseous abnormalities are seen. IMPRESSION: No radiographic evidence of acute cardiopulmonary process. POS: OFF
--- NOTE | 2018-11-21 11:06 | RAD ---
RIGHT CLAVICLE 2 VIEWS: Date: 11/21/18 HISTORY: Injury, right shoulder and clavicle pain. FINDINGS/IMPRESSION: The right clavicle is intact. POS: OFF
--- NOTE | 2018-11-21 11:07 | RAD ---
LEFT HIP 2 VIEWS: Date: 11/21/18 HISTORY: Fall, left hip pain. FINDINGS/IMPRESSION: No acute fracture or dislocation is seen. POS: OFF
[2018-11-21 12:20] LABS: Magnesium 1.9 mg/dL (1.6-2.6)
[2018-11-21 12:23] VITALS: TEMP 98.2
[2018-11-21 12:41] LABS: CKMB 4.3 ng/mL (0-6.6)
[2018-11-21 13:32] LABS: PTT 29.5 SEC (22.9-36.1)
[2018-11-21 13:34] LABS: D-Dimer Test 0.49 *mcg/mL (0.27-0.43)
[2018-11-21 15:40] VITALS: BP 117/73
--- NOTE | 2018-11-21 17:59 | CT ---
CTA Angio Chest W WO Con History: Collapse. Low oxygen saturation Comparison: Chest radiograph same day Findings: CT angiogram chest performed after the intravenous ministration of contrast. 3-D rendering provided. No proximal seminal pulmonary arterial filling defect. No pericardial effusion. Subcutaneous fat stranding along the right chest wall with extension to the right pectoralis major mu scle. Limited evaluation of the upper abdomen is unremarkable. Mild atelectasis in lung bases. No pneumothorax, effusion, or focal airspace consolidation. No thoracic spine compression fracture. Incompletely evaluated fracture right posterior 10th rib and 11th rib with a healed right lateral marie th rib fracture. Old left posterior ninth rib fracture. 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 Impression: 1. No proximal segmental pulmonary arterial filling defect. 2. Incompletely evaluated numerous bilateral rib fractures, likely chronic, some with nonunion. 3. No evidence for pneumonia. 4. Abnormal subcutaneous soft tissue fat stranding along the right chest extending to the pectoralis major muscle may be seen with cellulitis versus a contusion. Clinical correlation advised.
[2018-11-21] MEDS ORDERED: Atorvastatin Calcium 40 MG TAB PO SCH (21:00)
--- NOTE | 2018-11-21 22:34 | CON ---
DATE OF CONSULTATION: 11/21/2018 HISTORY OF PRESENT ILLNESS: Mr. Reyes had a recurrent seizure which caused him to have some autonomous behavior and wander to his neighbor's house. He suffered some facial injury. He apparently has fell through a reyes outside the house. His prior seizure occurred about two weeks ago. He has been compliant with his Keppra. Since admission, he has not had any further seizure activity. His initial workup showed an elevated CPK and a white blood cell count of 20. He reports he has been on prednisone for treatment of his COPD. He has had an MRI of the brain done, which was unremarkable. He is only complaining of the pain around the face from the injuries. PAST MEDICAL HISTORY: Coronary disease, diabetes, CHF, seizures. PHYSICAL EXAMINATION: On exam, he is alert and cooperative. His speech is fluent and clear. He has some facial ecchymosis around the right eye and right lower lip. His exam is otherwise unremarkable. Mr. Reyes had two breakthrough seizures on his current dose of Keppra 500 mg twice a day. I have recommended he increase it to 750 twice a day. I would be happy to follow up with him as an outpatient. Job ID: [id number]
== END 2018-11-21 19:23 | disposition home or self-care (01) ==
LOC: ERS 20:01 → 2SW 11-21 00:53
PROVIDERS: ADMIT Internal Medicine; ATTEND Internal Medicine
DX: G40.909 Epilepsy, unspecified, not intractable, without status epilepticus (principal); R55 Syncope and collapse; E03.9 Hypothyroidism, unspecified; E11.9 Type 2 diabetes mellitus without complications; J44.9 Chronic obstructive pulmonary disease, unspecified; E78.5 Hyperlipidemia, unspecified; F41.8 Other specified anxiety disorders; F32.9 Major depressive disorder, single episode, unspecified; I25.2 Old myocardial infarction; I25.10 Atherosclerotic heart disease of native coronary artery without angina pectoris; M32.9 Systemic lupus erythematosus, unspecified; Z87.891 Personal history of nicotine dependence; Z88.0 Allergy status to penicillin; Z88.2 Allergy status to sulfonamides; Z88.5 Allergy status to narcotic agent; Z88.8 Allergy status to other drugs, medicaments and biological substances; Z79.82 Long term (current) use of aspirin; Z79.84 Long term (current) use of oral hypoglycemic drugs; Z79.899 Other long term (current) drug therapy; Z95.5 Presence of coronary angioplasty implant and graft
CPT/HCPCS: 36415; 36416; 70450; 70486; 70551; 71046; 71275; 72125; 72170; 80048; 80053; 80177; 80306; 80307; 81003; 81015; 82550; 82553; 83735; 84146; 84484; 85025; 85379; 85610; 85730; 90471; 90715; 93005; 94640; 94760; 96361; 96374; 96375; G0378; J2060; J2270; J2405; J7512; J7620; Q0162; Q9966

== ENCOUNTER 2018-12-05 00:03 | Observation (INO) | payer SELFPAY ==
[2018-12-05] MEDS ORDERED: Ondansetron PF 4 MG/2 ML Vial ONE (00:30)
[2018-12-05] MEDS ORDERED: Morphine 4 MG/ML VIAL ONE (00:30)
[2018-12-05 01:40] LABS: Troponin I Less than 0.010 ng/mL (< 0.028)
[2018-12-05 03:34] VITALS: BMI 36.1
[2018-12-05] MEDS ORDERED: Ondansetron ODT 4 MG TAB PO PRN (03:38)
[2018-12-05] MEDS ORDERED: Acetaminophen 325 MG TAB PO PRN (03:38)
[2018-12-05] MEDS ORDERED: Acetaminophen 650 MG Suppository PR PRN (03:38)
[2018-12-05] MEDS ORDERED: Ondansetron PF 4 MG/2 ML Vial IVP PRN (03:38)
[2018-12-05] MEDS ORDERED: Dextrose 5% in Water 1,000 ML IV PRN (03:42)
[2018-12-05] MEDS ORDERED: HumaLOG 300 UNITS/3 ML VIAL SC PRN ×2 (03:42)
[2018-12-05] MEDS ORDERED: Dextrose 50% Abboject 50 ML SYRINGE SLOW IVP PRN (03:42)
[2018-12-05 03:45] LABS: Anion Gap 13 mmol/L (10-20); BUN (Urea Nitrogen) 16 mg/dL (8.9-20.6); Calc. Creatinine Clearance 195 mL/min (70-130); Calcium 9.5 mg/dL (7.8-10.44); Carbon Dioxide 23 mmol/L (22-29); Chloride 105 mmol/L (98-107); Estimated GFR-MDRD Greater than 90; Glucose 122 mg/dL (70-105); Potassium 4.2 mmol/L (3.5-5.1); Sodium 137 mmol/L (136-145)
[2018-12-05] MEDS ORDERED: Ketorolac Tromethamine 10 MG TAB PO SCH (03:45)
[2018-12-05 03:47] LABS: #Lymphocytes 1.6 thou/uL (1.20-3.40); #Monocytes 0.5 thou/uL (0.11-0.59); #Neutrophils 11.8 thou/uL (1.40-6.50); %Basophils 0.2 % (0.0-1.0); %Eosinophils 0.2 % (0.0-10.0); %Lymphocytes 11.4 % (21.0-51.0); %Monocytes 3.5 % (0.0-10.0); %Neutrophils 84.7 % (42.0-75.0); Hemoglobin 15.1 g/dL (14.0-18.0); Mean Corpuscular HGB CONC 35.2 g/dL (32.0-36.0); Mean Corpuscular Hemoglobin 32.6 pg (27.0-31.0); Mean Corpuscular Volume 92.7 fL (78.0-98.0); Mean Platelet Volume 6.8 fL (7.4-10.4); Platelet Count 286 thou/uL (130-400); RBC Distribution Width 12.9 % (11.5-14.5); Red Blood Cell (RBC) Count 4.63 mill/uL (4.70-6.10); White Blood Cell (WBC) Count 13.9 thou/uL (4.8-10.8)
[2018-12-05] MEDS ORDERED: PROVENTIL INHALER 6.7 G (200 INHALATIONS) INH PRN (04:00)
--- NOTE | 2018-12-05 05:04 | HP ---
TIME OF ADMISSION: 0200. PRIMARY CARE PHYSICIAN: Philippe Loredo MD CHIEF COMPLAINT: Left-sided chest pressure and shortness of breath. IMPRESSION AND PLAN: Mr. Reyes is a 48-year-old gentleman, who presents with persisting left-sided chest pressure. The patient was recently discharged from the hospital on 11/21/2018 after being admitted following a syncopal episode/breakthrough seizure. He was seen by Dr. Senior at that time and had his Keppra increased to 750 mg twice a day with advice to follow up as an outpatient. The patient states he has continued to experience pain and pressure on the left anterior chest with numbness and tingling from his left shoulder down along the ulnar distribution involving the fourth and fifth fingers. He denies having any neck pain. Has not had any further falls or seizures. He does however report concern over feeling short of breath with minimal exertion. He states since being in the hospital, he has been less active than he normally is, but does have some level of activity daily. He states he gets winded very easily. Denies any pleuritic type of chest pain. No cough or hemoptysis. Has not had any lower extremity swelling or edema or calf tenderness. He states the shortness of breath with exertion has been long-standing and he express frustration over feeling that none of his investigations have found the cause of his symptoms. The patient has undergone multiple investigations including a CT angiogram on 11/21/2018, which showed no evidence for pneumonia. He had abnormal subcutaneous soft tissue fat stranding on the right chest extending to the pectoralis major muscle, which was felt to be seen with cellulitis versus contusion. There was incompletely evaluated numerous bilateral rib fractures, felt to be chronic. There was no evidence for pneumonia or PE. He had an MRI of the brain done at that time, which showed no evidence of intracranial process. He also had a cervical spine CT showing no acute fracture or malalignment of the cervical spine. A stress test was done on 11/10/2018, showing normal myocardial perfusion scan without evidence of ischemia. There was borderline left ventricular ejection fraction of 53%. The patient had his last echo on August 17, 2018, which according to the report was a technically difficult study with poor endocardial definition. It was said the EF appeared moderately depressed with mild mitral regurgitation present and mild tricuspid regurgitation. REVIEW OF SYSTEMS: The patient denies having any recent fevers, chills, or sweats. Denies having any headaches or dizziness, but does at times feel lightheaded. Denies having any changes with his appetite. No nausea or vomiting. No abdominal pain. No urinary symptoms or bowel changes. PAST MEDICAL HISTORY: 1. Hyperlipidemia. 2. Hypertension. 3. Seizures. 4. Diabetes mellitus. 5. Hypothyroidism. 6. Chronic obstructive pulmonary disease. PAST SURGICAL HISTORY: 1. PTCA and stenting in July 2018. 2. History of trach and PEG tube placements with reversals. SOCIAL HISTORY: The patient is a former smoker and states he quit one year ago. He does smoke marijuana occasionally, but quit approximately 4 weeks ago. Denies any alcohol consumption. FAMILY HISTORY: His father had a massive [place] and at age 47. His mother also had an [place] and at age 61. ALLERGIES: 1. PENICILLIN. 2. SULFA. 3. CODEINE. 4. GEODON. CURRENT MEDICATIONS: 1. Albuterol. 2. Atorvastatin. 3. Gabapentin. 4. Levothyroxine. 5. Metformin. 6. Prednisone. 7. Sulfasalazine. 8. Clopidogrel. 9. Keppra. PHYSICAL EXAMINATION: GENERAL: The patient appears well developed, well nourished, is in no acute distress. VITAL SIGNS: Temperature 97.7, blood pressure 133/89, pulse 74, respirations 19, O2 saturation 97% on room air. HEENT: Normocephalic and atraumatic. Pupils are equal, round, and reactive to light. Sclerae icterus. Oropharynx is clear. NECK: Supple. LUNGS: Clear to auscultation bilaterally. CARDIAC: Regular rate and rhythm. He does have tenderness to palpation of the left anterior chest wall with tenderness below the axillary region. The patient is guarding. No bony deformities. No soft tissue swelling or bruising. No crepitus. ABDOMEN: Soft, nontender, and nondistended. Normoactive bowel sounds present. EXTREMITIES: No lower leg swelling or edema. NEUROLOGIC: Alert and oriented x3. Reduced sensation along the left shoulder and down the arm along the ulnar nerve distribution. Strength 5/5 in both upper extremities. SKIN: Without rash or jaundice. LABORATORY DATA: White blood count 13.9, hemoglobin 15.1, hematocrit 42.9, platelets 286. Sodium 137, potassium 4.2, chloride 105, BUN 16, creatinine 0.77, GFR 90, calcium 9.5. Troponin negative x3. EKG done in the emergency department showed a junctional rhythm with a heart rate of 68. No ectopics. No ST changes or T-wave abnormalities. Chest x-ray showed no acute cardiopulmonary findings. IMPRESSION AND PLAN: Mr. Reyes is a 48-year-old gentleman, who has been referred for management of the following. 1. Left anterior chest pain. He has associated chest wall tenderness and numbness involving the shoulder down the arm along the ulnar nerve distribution. We will obtain an MRI of the cervical spine and left shoulder as this appears to be musculoskeletal in nature and compared to his most recent visit is not causing sensory changes in the left upper extremity. We will try Toradol and lidocaine patch for his pain. 2. Shortness of breath on exertion. The patient has had multiple cardiac investigations. The echo done in July 2018, appears to have been a suboptimal study. We will repeat the echo. Cardiology consult if indicated. His plater barrel is Dr. Valadez. There could be a component of general deconditioning as patient has been purposely less active than usual due to fear of having another collapse or seizure. PT and OT consult are requested. 3. Leukocytosis. Associated with chronic steroids. 4. Hypertension. We will resume home medications and monitor blood pressure. 5. Diabetes mellitus. We will initiate insulin sliding scale. We will hold his medications in the event he might undergo study requiring contrast. 6. Gastrointestinal prophylaxis. We will plan to give famotidine 20 mg IV b.i.d. 7. Deep venous thrombosis prophylaxis with mechanical SCDs. 8. Full code status. His surrogate decision maker is his daughter, Cecilia Reyes. The patient's case discussed with attending, who agrees with plan of care as described above. Job ID: [id number]
[2018-12-05] MEDS ORDERED: Levothyroxine 150 MCG TAB PO SCH (06:00)
[2018-12-05 08:02] VITALS: TEMP 97.6
[2018-12-05] MEDS ORDERED: Lidocaine 5% Patch TD SCH (09:00)
[2018-12-05] MEDS ORDERED: Gabapentin 300 MG CAP PO SCH (09:00)
[2018-12-05] MEDS ORDERED: Famotidine/PF 20 mg/2ml Vial SLOW IVP SCH (09:00)
[2018-12-05] MEDS ORDERED: predniSONE 5 MG TAB PO SCH (09:00)
[2018-12-05] MEDS ORDERED: Clopidogrel Bisulfate 75 MG TAB PO SCH (09:00)
[2018-12-05] MEDS ORDERED: levETIRAcetam 500 mg/5 ml Oral Solution PO SCH (09:00)
--- NOTE | 2018-12-05 10:30 | MRI ---
MRI Upper Ext Jt Lt WO Con History: Neck pain Comparison: None. Findings: Biceps tendon: Mild tendinosis intra-articular tendon. Extra-articular tendon is intact. Labrum: Intact. No displaced tear. Rotator cuff: Moderate bursal surface tearing supraspinatus tendon, 10-20 %, without full-thickness p erforation. Infraspinatus tendon is intact. Mild tendinosis of subscapularis. Soft tissues: There is interposition of capsule between the right glenoid and humeral head, likely po sitional. Moderate subacromial/subdeltoid bursa effusion. Mildly thickened and edematous axillary pouch inferior glenohumeral ligament. Bones: Small undersurface hook of the acromion, a type III acromion. Moderate degenerative disease ac romio clavicular joint. Muscles: Muscle signal and bulk is normal. Impression: 1. Type III acromion with moderate bursal surface fraying supraspinous tendon and reactive subacromia l/subdeltoid bursa effusion. No full-thickness perforation of the rotator cuff. 2. Thickened edematous axillary pouch inferior glenohumeral ligament suggest capsulitis in the corre t clinical setting. 3. Moderate degenerative disease acromioclavicular joint.
--- NOTE | 2018-12-05 10:37 | MRI ---
MRI CERVICAL SPINE WITHOUT CONTRAST: Date: 12/05/18 INDICATION: Neck pain. Left shoulder pain and numbness. FINDINGS: Cervical vertebra maintain normal height and alignment. The disc spaces are normally maintained. No v ertebral body edema. No significant disc bulge or disc protrusion in any of the visualized cervical levels. No central can al or foraminal stenosis identified. No evidence of cord impingement. Cervical cord signal appears no rmal, although there is motion artifact on all sequences. IMPRESSION: Unremarkable MRI of cervical spine. POS: OFF
--- NOTE | 2018-12-05 12:42 | PDOC.HOSPP ---
- Subjective Encounter Date: 12/05/18 Encounter Time: 10:00 Subjective: c/o chest pain, left ue pain - Objective Vital Signs & Weight: Vital Signs (12 hours) Temp Pulse Resp BP BP BP BP 12/05/18 11:35 97.6 F 62 16 136/97 H 12/05/18 07:55 97.6 F 69 16 121/86 12/05/18 04:00 97.5 F L 71 16 12/05/18 03:42 113/85 127/92 H 12/05/18 03:36 97.7 F 75 22 H 132/91 H 12/05/18 02:17 97.7 F 75 22 H BP Pulse Ox 12/05/18 11:35 98 12/05/18 07:55 97 12/05/18 04:00 128/87 93 L 12/05/18 03:42 12/05/18 03:36 95 12/05/18 02:17 132/91 H 95 Weight Admit Weight 259 lb Weight 259 lb I&O: 12/04/18 12/05/18 12/06/18 06:59 06:59 06:59 Intake Total 240 Output Total 0 Balance 240 Result Diagrams: 12/05/18 03:04 12/05/18 03:04 Hospitalist ROS - Medication Medications: Active Medications Generic Name Dose Route Start Last Admin Trade Name Mandie PRN Reason Stop Dose Admin Clopidogrel Bisulfate 75 mg 12/05/18 09:00 12/05/18 10:28 Plavix PO 75 mg DAILY REDDY Administration Famotidine 20 mg 12/05/18 09:00 12/05/18 10:28 Pepcid SLOW IVP 20 mg Q12HR REDDY Administration Gabapentin 300 mg 12/05/18 09:00 12/05/18 10:28 Neurontin PO 300 mg BID REDDY Administration Levetiracetam 750 mg 12/05/18 09:00 12/05/18 10:28 Keppra Oral Solution PO 750 mg BID REDDY Administration Levothyroxine Sodium 150 mcg 12/05/18 06:00 12/05/18 07:28 Synthroid PO 150 mcg 0600 REDDY Administration Lidocaine 1 patch 12/05/18 09:00 12/05/18 10:29 Lidoderm 5% Patch TD 1 patch DAILY REDDY Administration Prednisone 5 mg 12/05/18 09:00 12/05/18 10:29 Prednisone PO 5 mg DAILY REDDY Administration - Exam General Appearance: NAD, awake alert Eye: PERRL, anicteric sclera ENT: normocephalic atraumatic, moist mucosa Neck: supple, no JVD Heart: RRR, no murmur Respiratory: no wheezes, no rales Gastrointestinal: soft, non-tender, non-distended, normal bowel sounds Extremities: no clubbing, no edema Neurological: CN's grossly intact, no focal deficits Psychiatric: normal affect, A&O x 3 Hosp A/P (1) Chest pain Code(s): R07.9 - CHEST PAIN, UNSPECIFIED Status: Acute Qualifiers: Chest pain type: intercostal pain Qualified Code(s): R07.82 - Intercostal pain (2) CAD (coronary artery disease) Code(s): I25.10 - ATHSCL HEART DISEASE OF [place] CORONARY ARTERY W/O ANG PCTRS Status: Chronic Qualifiers: Coronary Disease-Associated Artery/Lesion type: [place] artery [place] vs. transplanted heart: [place] heart Associated angina: without angina Qualified Code(s): I25.10 - Atherosclerotic heart disease of [place] coronary artery without angina pectoris (3) Diabetes mellitus Code(s): E11.9 - TYPE 2 DIABETES MELLITUS WITHOUT COMPLICATIONS Status: Chronic Qualifiers: Diabetes mellitus type: type 2 Diabetes mellitus detention insulin use: without detention use (4) Diabetes mellitus type II, non insulin dependent Code(s): E11.9 - TYPE 2 DIABETES MELLITUS WITHOUT COMPLICATIONS Status: Chronic (5) Hypertension Code(s): I10 - ESSENTIAL (PRIMARY) HYPERTENSION Status: Chronic Qualifiers: Hypertension type: essential hypertension Qualified Code(s): I10 - Essential (primary) hypertension (6) Seizure disorder Code(s): G40.909 - EPILEPSY, UNSP, NOT INTRACTABLE, WITHOUT STATUS EPILEPTICUS Status: Chronic - Plan MRI c.spine shows no sig abnormalities MRI left shoulder has +ve findings for either capsulitis or rotator issue, will set up outpt appt with ortho head bone grinder d/w patient he will f/u with in his office, is not inclined for cath now hemostable dc pt home
[2018-12-05 13:56] VITALS: BP 136/95
--- NOTE | 2018-12-05 13:58 | CON ---
DATE OF CONSULTATION: 12/05/2018 REASON FOR CONSULTATION: Chest pain. HISTORY OF PRESENT ILLNESS: Mr. Reyes is a 48-year-old gentleman, who was seen and evaluated in the past. He was previously admitted for unstable angina. He underwent successful stent placement in the right coronary artery. He also has a chronically occluded circumflex artery. Mr. Reyes has always been very difficult to assess his coronary status. He recently presented with chest pain. He had a seizure, where he had trauma noted to his chest. He states his chest pain is worse with palpation. He also states he has had constant left arm discomfort. After reviewing his previous films, it appears the circumflex artery is chronically occluded and likely he has had for several years. He also has a component of anxiety, which makes things further difficult to address. PAST MEDICAL HISTORY: CAD, status post stent placement, hyperlipidemia, hypertension, diabetes mellitus, hypothyroidism, COPD, and stent placement. SOCIAL HISTORY: No current tobacco or alcohol use, quit one month ago. FAMILY HISTORY: Father had CAD. ALLERGIES: PENICILLIN, SULFA, CODEINE. HOME MEDICATIONS: Include 1. Albuterol. 2. Atorvastatin. 3. Gabapentin. 4. Levothyroxine. 5. Metformin. 6. Prednisone. 7. Sulfasalazine. 8. Plavix. 9. Keppra. REVIEW OF SYSTEMS: A 10-point review of systems is reviewed as above, otherwise negative. PHYSICAL EXAMINATION: GENERAL: Patient is a pleasant gentleman, who is in no acute distress. The patient appears their stated age. VITAL SIGNS: Blood pressure 136/97, pulse 62, temperature afebrile. NEUROLOGIC: The patient is alert and oriented x3 with no focal neurologic deficits. HEENT: Sclerae without icterus. Mouth has moist mucous membranes with normal pallor. NECK: No JVD. Carotid upstroke brisk. No bruits bilaterally. LUNGS: Clear to auscultation with unlabored respirations. BACK: No scoliosis or kyphosis. CARDIAC: Regular rate and rhythm with normal S1 and S2. No S3 or S4 noted. No significant rubs, murmurs, thrills, or gallops noted throughout the precordium. PMI is not displaced. There is no parasternal heave. ABDOMEN: Soft, nontender, nondistended. No peritoneal signs present. No hepatosplenomegaly. No abnormal striae. EXTREMITIES: 2+ femoral and 2+ dorsalis pedis pulses. No cyanosis, clubbing, or edema. SKIN: No gross abnormalities. PERTINENT LABORATORY DATA: Hemoglobin 15.1. Creatinine 0.77. Troponin negative. IMPRESSION: 1. Atypical chest pain. 2. Coronary artery disease. 3. Status post stent placement. RECOMMENDATIONS: I did not feel Mr. Reyes's symptoms are consistent with coronary ischemia or angina. His symptoms are very atypical. His arm pain appears to be constant. His does have pain to palpation. At this point, we will treat his pain with nonsteroidal. I did briefly discuss proceeding with angiography. The patient is very reluctant and at this point, given troponin negative and EKG negative with atypical symptoms, it is not indicated. Please re-consult if needed. Job ID: [id number]
--- NOTE | 2018-12-05 18:27 | DIS ---
DATE OF ADMISSION: 12/05/2018 DATE OF DISCHARGE: 12/05/2018 DISCHARGE DISPOSITION: To home. PRIMARY DISCHARGE DIAGNOSIS: Chest pain, likely muscular, likely left shoulder capsulitis. SECONDARY DISCHARGE DIAGNOSES: History of coronary artery disease with prior stent, diabetes mellitus type 2, hypertension, and seizure disorder. PROCEDURES DONE DURING HOSPITALIZATION: MRI cervical spine without contrast was unremarkable. MRI of left shoulder done showed findings suggestive of possible capsulitis. White count of 13, H and H 15 and 42, platelet count 286, MCV is 92. BUN 16 and creatinine 0.7. Troponin x3 negative. INPATIENT CONSULT: Dr. Valadez for Cardiology. DISCHARGE PLAN: The patient to follow up with Dr. Ellis within 1 week. He needs to follow up with Dr. Valadez in 3 weeks and primary care physician, Dr. Loredo, in 1 week. DISCHARGE MEDICATIONS: 1. Lidocaine transdermal patch once daily. 2. Keppra 750 mg twice daily. 3. Plavix 75 mg daily. 4. Sulfasalazine 500 mg twice daily. 5. Prednisone 5 mg daily. 6. Metformin 500 mg p.o. daily. 7. Synthroid 150 mcg p.o. daily. 8. Gabapentin 300 mg p.o. twice daily. 9. Coreg 6.25 mg twice daily. 10. Atorvastatin 40 mg p.o. q.h.s. 11. Albuterol inhaler q.6 hourly p.r.n. ALLERGIES: ALLERGIC TO PENICILLIN, SULFA, GEODON, CODEINE, AND FLUOXETINE. BRIEF COURSE DURING HOSPITALIZATION: The patient initially came in with complaints of left-sided chest pain with left shoulder pain and left upper extremity pain. His chest pain was consistent with musculoskeletal pain, worse on physical pressure. In view of severe left shoulder pain, the patient has had MRI cervical spine and MRI of the left shoulder done. The left shoulder MRI findings are suggestive of capsulitis. I have spoken to Dr. Ellis regarding the patient's findings. He will be happy to see him in the outpatient setting, his office will call the patient for initial appointment. He is otherwise hemodynamically stable and will be shortly discharged home. Please see a [id number] documentation for the day of discharge on [facility]. Job ID: [id number] [facility]
[2018-12-05] MEDS ORDERED: Lidocaine Patch Removal 1 EACH TOP SCH (21:00)
[2018-12-05] MEDS ORDERED: Atorvastatin Calcium 40 MG TAB PO SCH (21:00)
--- NOTE | 2018-12-09 12:31 | EKG ---
Test Reason : CP Blood Pressure : / mmHG Vent. Rate : 068 BPM Atrial Rate : 067 BPM P-R Int : 000 ms QRS Dur : 088 ms QT Int : 380 ms P-R-T Axes : 000 -09 003 degrees QTc Int : 404 ms Accelerated Junctional rhythm Abnormal ECG Confirmed by FRANCES KHAN M.D. ([id number]), legal editor TJ VILLA ([id number] on 12/09/2018 12:31:15 PM Referred By: Confirmed By:FRANCES KHAN M.D.
== END 2018-12-05 15:08 | disposition home or self-care (01) ==
LOC: ERS 00:03 → 2SE 02:14
PROVIDERS: ADMIT Hospitalist; ATTEND Hospitalist
DX: R07.82 Intercostal pain (principal); I25.10 Atherosclerotic heart disease of native coronary artery without angina pectoris; E11.9 Type 2 diabetes mellitus without complications; I10 Essential (primary) hypertension; G40.909 Epilepsy, unspecified, not intractable, without status epilepticus; E78.5 Hyperlipidemia, unspecified; E03.9 Hypothyroidism, unspecified; J44.9 Chronic obstructive pulmonary disease, unspecified; M19.012 Primary osteoarthritis, left shoulder; D72.829 Elevated white blood cell count, unspecified; Z87.891 Personal history of nicotine dependence; Z79.02 Long term (current) use of antithrombotics/antiplatelets; Z79.52 Long term (current) use of systemic steroids; Z79.84 Long term (current) use of oral hypoglycemic drugs; Z79.899 Other long term (current) drug therapy; Z88.0 Allergy status to penicillin; Z88.2 Allergy status to sulfonamides; Z88.5 Allergy status to narcotic agent; Z88.8 Allergy status to other drugs, medicaments and biological substances; Z95.5 Presence of coronary angioplasty implant and graft
CPT/HCPCS: 36415; 36416; 72141; 80048; 84484; 85025; 90471; 90732; 93005; 93306; 96374; 96375; G0009; G0378; J2270; J2405; J7512; S0028